=== PATIENT | male | born 1940 | race Caucasian/White ===

== ENCOUNTER 2016-09-14 05:27 | Inpatient (IN) | payer OTHER ==
[2016-09-03 14:44] VITALS: BMI 31.0
--- NOTE | 2016-09-03 15:19 | PAT Medication Instructions ---
Service Date Sep 03, 2016. Current Home Medication List Ascorbic Acid (Vitamin C *), 500 MG PO BID Aspirin (Aspir-81), 81 MG PO BID Calcium Carbonate (Tums), 2 TAB PO PRN Fish Oil ([place]-3), 1 CAP PO QAM Levodopa/Carbidopa (Sinemet 25MG/100MG), 2 TAB PO TID Losartan Potassium (Cozaar), 100 MG PO QAM Multivitamin (Multivitamin), 1 TAB PO QAM Simvastatin (Zocor), 20 MG PO QAM [Amlodipine], 1 TAB PO QAM Medication Instructions For Your Scheduled Surgery - Hold the following medications starting today 09/03/16: Fish Oil ([place]-3), 1 CAP PO QAM - Hold the following medications the morning of surgery: Multivitamin (Multivitamin), 1 TAB PO QAM Losartan Potassium (Cozaar), 100 MG PO QAM Calcium Carbonate (Tums), 2 TAB PO PRN Ascorbic Acid (Vitamin C *), 500 MG PO BID - Take the following medications the morning of surgery with a sip of water: Amlodipine 1 TAB PO QAM Simvastatin (Zocor), 20 MG PO QAM Levodopa/Carbidopa (Sinemet 25MG/100MG), 2 TAB PO TID Aspirin (Aspir-81), 81 MG PO BID (per surgeon instructions) - Take the following medications as scheduled the night before surgery: Levodopa/Carbidopa (Sinemet 25MG/100MG), 2 TAB PO TID Ascorbic Acid (Vitamin C *), 500 MG PO BID Aspirin (Aspir-81), 81 MG PO BID (per surgeon instructions) If you have any questions please call us at [phone] or [phone] ( [place]) or [phone]
--- NOTE | 2016-09-03 16:02 | DIAGNOSTIC IMAGING REPORT ---
CHEST 2 VIEWS ROUTINE CLINICAL HISTORY: Preoperative chest COMPARISON STUDY: 03/12/2014 FINDINGS: The cardiac and mediastinal contours remain stable. There is mild interstitial thickening, unchanged the prior study. This is likely chronic. There is no focal pulmonary consolidation. There is no failure. There are no pleural effusions. Degenerative changes are present within the dorsal spine with bridging anterior calcification.[ IMPRESSION: No active disease in the chest. Electronically signed by: Juice Tang M.D. 09/03/2016 4:01 PM Dictated Date/Time: 09/03/2016 4:00 PM
[2016-09-03 16:36] LABS: BASO % 0.2 %; BASO ABS # 0.02 K/uL (0-0.2); COMPLETE YES; EOS % 1.1 %; HEMATOCRIT 40.6 % (42-52); IG% 0.3 %; LYMPH % 20.6 %; LYMPH ABS # 2.43 K/uL (1.2-3.4); MEAN CELL VOLUME 96.9 fL (80-100); MEAN CORPUSCULAR HEMOGLOBIN 33.9 pg (25-34); MEAN PLATELET VOLUME 10.4 fL (7.4-10.4); MONO % 7.3 %; NEUT % 70.5 %; PLATELET COUNT 267 K/uL (130-400); RED BLOOD COUNT 4.19 M/uL (4.7-6.1); WHITE BLOOD COUNT 11.79 K/uL (4.8-10.8)
[2016-09-03 16:48] LABS: PROTHROMBIN TIME (PATIENT) 10.9 SECONDS (9.0-12.0)
[2016-09-03 17:03] LABS: BUN/CREATININE RATIO 19.1 (10-20); CALCIUM 9.5 mg/dl (8.5-10.1); CREATININE 0.86 mg/dl (0.60-1.40); POTASSIUM 3.7 mmol/L (3.5-5.1)
[2016-09-14] VITALS (11 sets, daily range): BP systolic 114–184; BP diastolic 46–82; PULSE 64–97; TEMP 36.5–36.8; O2SAT 90–94; Ht 190.5 cm; Wt 113.4 kg
[~2016-09-14] VITALS: Ht 190.5 cm; Wt 113.4 kg
[~2016-09-14 05:27] MED LIST: AMLODIPINE PO; ASCA500 PO; ASPI-232 PO; CALC500C3 PO; LOSA1TAB38 PO; MULT-506 PO; OMEG10007 PO; SIMV20TA2 PO; SNM/25100 PO
[2016-09-14] MEDS ORDERED: SODIUM CHLORIDE 0.9% 1000ML 1,000 ML IV SCH (06:00)
[2016-09-14] MEDS ORDERED: LACTATED RINGER'S 1000ML 1,000 ML IV SCH (06:00)
[2016-09-14] MEDS ORDERED: CEFAZOLIN 2000 MG/60 ML D5W IV SCH (06:00)
[2016-09-14] MEDS ORDERED: FENTANYL CITRATE INJ 50 MCG/1 ML 2 ML VIAL ONE (06:13)
[2016-09-14] MEDS ORDERED: ONDANSETRON INJ 2 MG/ML 2 ML VIAL ONE (06:13)
[2016-09-14] MEDS ORDERED: LIDOCAINE HCL 2% 2 ML VIAL (20MG/ML) ONE (06:13)
[2016-09-14] MEDS ORDERED: PROPOFOL IV EMULSION 10 MG/ML 20 ML VIAL IV ONE ×2 (06:13→09:05)
[2016-09-14] MEDS ORDERED: DEXAMETHASONE SOD INJ 4 MG/ML VIAL ONE (06:13)
[2016-09-14] MEDS ORDERED: MIDAZOLAM HCL 1 MG/ML 2ML VIAL ONE (06:13)
[2016-09-14] MEDS ORDERED: ROCURONIUM BROMIDE 10 MG/ML 5 ML VIAL ONE ×2 (06:13→08:11)
--- NOTE | 2016-09-14 06:14 | History and Physical ---
History & Physical CC: Left internal carotid artery stenosis HPI: Mr. Bennett is a 75-year-old gentleman who you have been following for carotid disease over the last few years. He is asymptomatic without any focal symptomatology. His most recent ultrasound was suggestive of a significant left internal carotid artery stenosis. CTA was performed, which showed the left internal carotid artery with approximately 90% stenosis. Again, he denies any symptoms of TIAs or CVAs. He denies any symptoms of claudication in either lower extremity. ALLERGIES: None known. PAST MEDICAL HISTORY: Positive for hyperlipidemia, hypertension, osteoarthritis , and skin cancer. SURGICAL HISTORY: Positive for a tonsillectomy, bilateral knee replacements, hip replacement. FAMILY HISTORY: Positive for heart disease, hypertension and stroke. SOCIAL HISTORY: He does not smoke. He drinks occasionally. REVIEW OF SYSTEMS: Ten systems were reviewed with the positive findings are positive for skin cancer, cough, heartburn and constipation. PHYSICAL EXAMINATION: The patient is awake, oriented x3. He is in no apparent distress, normal body habitus. His blood pressure is 154/68 over the left, 156/ 66 on the right. Head and Neck: Within normal limits. There are some carotid bruits on both sides, slightly worse in the left than the right. Lungs are clear to auscultation. Heart had a regular rate and rhythm. Abdominal exam is benign, no abnormal dilatation of the arteries was appreciated. Vascular exam reveals his radials, his carotids, superficial temporal arteries +2 bilaterally. Femorals and posterior tibialis are +2 bilaterally. Bilateral dorsalis pedis are +1 bilaterally. There is good capillary refill in both feet. Neurologic exam is intact to motor and sensory function. There is no evidence of ischemic changes of either lower extremities. IMPRESSION: 1. Left internal carotid artery stenosis severe, right-side is moderate. 2. Hypertension. 3. Hyperlipidemia. 4. Parkinson's disease. PLAN AND RECOMMENDATIONS: At this point, we recommend a left carotid endarterectomy. We went through the risks, options, benefits of surgery versus no surgery and conservative management. He understood these risks involved and elected to go ahead with surgical endarterectomy.
[2016-09-14] MEDS ORDERED: HEPARIN SOD (PORCINE) 1000 UNIT/ML 10 ML VIAL ONE (06:33)
[2016-09-14] MEDS ORDERED: ATROPINE SULFATE 0.1 MG/ML 5ML SYR IV PRN (07:00)
[2016-09-14] MEDS ORDERED: FENTANYL CITRATE INJ 50 MCG/1 ML 2 ML VIAL IV PRN (07:00)
[2016-09-14] MEDS ORDERED: EpHEDrine SULFATE INJ 50 MG/ML AMP IV PRN (07:00)
[2016-09-14] MEDS ORDERED: ONDANSETRON INJ 2 MG/ML 2 ML VIAL IV PRN ×2 (07:00→09:30)
[2016-09-14] MEDS ORDERED: PHENYLEPHRINE HCL INJ 10 MG/ML VIAL ONE (08:02)
[2016-09-14] MEDS ORDERED: EpHEDrine SULFATE 50MG/5ML SYR ONE (08:02)
[2016-09-14] MEDS ORDERED: GELATIN SPONGE 12-7MM TOP ONE ×2 (08:07→09:29)
[2016-09-14] MEDS ORDERED: SURGICEL ABSORB HEMOSTAT 2IN X 14IN TOP ONE (08:07)
[2016-09-14] MEDS ORDERED: HEPARIN SOD (PORCINE) 1000 UNIT/ML 10 ML VIAL FLUSH ONE (08:35)
[2016-09-14] MEDS ORDERED: CEFAZOLIN SOD 1 GM VIAL IRRIG ONE (08:35)
[2016-09-14] MEDS ORDERED: METOPROLOL TARTRATE 1 MG/ML VIAL ONE (09:05)
[2016-09-14] MEDS ORDERED: GLYCOPYRROLATE INJ 0.2 MG/ML VIAL ONE (09:17)
[2016-09-14] MEDS ORDERED: NEOSTIGMINE METHYLSULFATE 5 MG/5 ML SYR ONE (09:17)
[2016-09-14] MEDS ORDERED: PHENYLEPHRINE HCL INJ 20 MG in DEXTROSE 5% 500ML 500 ML IV PRN (09:20)
[2016-09-14] MEDS ORDERED: SODIUM NITROPRUSSIDE SOLN INJ 50 MG in DEXTROSE 5% 500ML 500 ML IV PRN (09:20)
--- NOTE | 2016-09-14 09:26 | [facility] Post Operative Brief Note ---
Immediate Operative Summary Operative Date Sep 14, 2016. Pre-Operative Diagnosis Left internal carotid artery stenosis, severe Post-Operative Diagnosis Same as pre-operative Procedure(s) Performed Left carotid endartectomy with patch angioplasty Surgeon Dr.Eugene Laury MD Computer Tester Surgeon(s) Karen Rouse PA-C Estimated Blood Loss 80ml Findings Severe stenosis of left internal carotid artery origin Specimens Plaque from left carotid Anesthesia Gen Complication(s) None Disposition Recovery Room / PACU
[2016-09-14] MEDS ORDERED: BUPIVACAINE/EPINEPHRINE 0.5% MPF 1:200,000 30 ML VIAL INJ ONE (09:29)
[2016-09-14] MEDS ORDERED: THROMBIN FOR SOLN 20000 UNIT KIT TOP ONE (09:29)
[2016-09-14] MEDS ORDERED: CALCIUM CARBONATE 500 MG CHEWABLE PO PRN (09:30)
[2016-09-14] MEDS ORDERED: ACETAMINOPHEN 325 MG TAB PO PRN (09:30)
[2016-09-14] MEDS ORDERED: MoRPHine SULFATE 4 MG/ML 1 ML CARP\\VIAL IV PRN (09:30)
[2016-09-14] MEDS ORDERED: OXYCODONE/ACETAMINOPHEN 5-325 TAB PO PRN (09:30)
[2016-09-14] MEDS ORDERED: LABETALOL HCL IV 5 MG/ML 20ML ONE (09:55)
--- NOTE | 2016-09-14 10:32 | Anesthesiology Progress Note ---
Anesthesia Post Op Note Date & Time Sep 14, 2016 at 10:32 Vital Signs Pain Intensity: 0 Vital Signs Past 12 Hours Date Time Temp Pulse Resp B/P Pulse Ox O2 Delivery O2 Flow Rate FiO2 09/14/16 10:20 82 20 157/65 92 Nasal Cannula 2 155/50 09/14/16 10:10 83 20 156/71 93 Mask 10 150/55 09/14/16 10:00 86 23 158/71 93 Mask 10 151/56 09/14/16 09:50 89 22 168/76 93 Mask 10 163/59 09/14/16 09:49 36.3 92 18 162/66 96 Mask 10 09/14/16 06:43 36.6 97 18 177/82 92 Room Air 153/71 Notes Mental Status: alert / awake / arousable, participated in evaluation Pt Amnestic to Procedure: Yes Nausea / Vomiting: adequately controlled Pain: adequately controlled Airway Patency, RR, SpO2: stable & adequate BP & HR: stable & adequate Hydration State: stable & adequate Anesthetic Complications: no major complications apparent
--- NOTE | 2016-09-14 10:34 | OPERATIVE REPORT ---
DATE OF OPERATION: 09/14/2016 PREOPERATIVE DIAGNOSIS: Left internal carotid artery stenosis, severe. POSTOPERATIVE DIAGNOSIS: Same. PROCEDURE: Left carotid endarterectomy with patch angioplasty. SURGEON: Dr. Schaefefr. BLACKSMITH HELPER: Karen Rouse PA-C. ANESTHETIC: General. PROCEDURE INDICATIONS: The patient is a 76-year-old gentleman who was found to have a greater than 90% narrowing of his left internal carotid artery on CT angiogram. Carotid endarterectomy was recommended. He understood the risks, options and benefits and agreed to go ahead with this procedure. The patient was taken to the operating room and placed in supine position. After the left side of the neck was prepped and draped in a sterile manner, a longitudinal incision was then made. This was carried down through the platysmal layer. It was carried down medial to the sternocleidomastoid muscle. The common carotid artery was identified. This was then exposed proximally to the omohyoid muscle. Dissection was carried upward up to the internal and external carotid artery. There dissection of the internal was carried up above the hypoglossal. The hypoglossal was allowed to retract upward on its own. The internal carotid artery origin appeared to be fairly hard on palpation. The patient was heparinized at that time with 8000 units of heparin. After adequate heparinization was accomplished, the internal, external and common carotid arteries were clamped. Longitudinal arteriotomy was started in the common carotid artery and extended upward along the internal to beyond the area of narrowing. A Doppler shunt was then placed in the internal carotid and held in place with Francesco clamps. Good backbleeding was seen. The proximal end was then placed in the common carotid artery and held in place with a Francesco clamp. The flow surface itself had a large amount of calcified heaped up plaque at the origin causing a greater than 90% narrowing on exam. Endarterectomy was started in the appropriate plane on the common carotid artery. Proximal breakoff point was cut using Vergara scissors. A nice flush breakoff point was seen. Endarterectomy was carried up along the common carotid artery. The external and superior thyroid were everted and endarterectomized. This was done without difficulty. The endarterectomy was continued on the internal carotid artery until a nice feathering breakoff point was accomplished. All loose debris and the remaining plaque were removed under loupe magnification. There was slight irregularity on the medial side of the breakoff point in the distal end. This was tacked down with 3 interrupted 7-0 Prolene sutures. After this was done, a nice flow surface was seen. No loose debris or flaps were noted. The patch was then brought to the operative field and sewn in place with a CV6 [place] suture in the usual vascular fashion. Prior to completing the closure, backbleeding and forward bleeding were allowed to occur after the shunt was removed. The arteries were reclamped and the flow surface was irrigated with heparinized saline. The final few sutures were placed and securely tied. Clamps were removed off the internal and external carotid artery. The internal was reclamped, and the common carotid artery was unclamped. After 2 or 3 beats the internal was released. Good flow was seen through the internal carotid artery. Good distal pulse was felt. The arteriotomy site was inspected. There were 2 areas which had some slight oozing which were tacked with interrupted 7-0 single stitch. After this was completed, adequate hemostasis was noted of the endarterectomy and the wound. The wound was then irrigated with antibiotic solution. The wound was then closed in the usual fashion using running 3-0 Vicryl for subcutaneous layer and running 4-0 subcuticular suture for the skin edges, and Dermabond for a dressing. The wound itself was injected with local at the end of the procedure. The patient left the operating room in good condition and tolerated the procedure well. Karen Rouse assisted due to lack of resident availability. I attest to the content of the Intraoperative Record and any orders documented therein. Any exceptions are noted below. TAL
--- NOTE | 2016-09-14 11:35 | Progress Note ---
Progress Note I assisted Dr Schaeffer with Glen Bennett's Left carotid endartectomy with patch angioplasty on 09/14/16, d/t lack of resident availability.
--- NOTE | 2016-09-14 11:56 | Critical Care Consultation ---
Critical Care Consultation Date of Consultation: Sep 14, 2016. Attending Physician: Dago Schaeffer M.D. Reason for Consultation: s/p left carotid endarterectomy History of Present Illness This is a pleasant 76yo m that is presenting to us after completion of a left sided endarterectomy. The patient was found in the past, by his PCP, that he suffered from a left sided bruit incidentally. Since this finding the patient has been getting regular, yearly carotid USG. This past July the patient had one of his repeat USG completed and he was found to have progression of his carotid stenosis and he was referred by his PCP to be seen by Dr. Schaeffer. Based on the CTA results, which revealed very significant stenosis on the left side and moderate on the right it was decided that he would undergo a left sided endarterectomy. He currently denies any chest pain, abdominal pain, numbness/ tingling or generalized weakness The patient has never had any neurologic symptoms, h/o stroke or TIA while suffering from this stenosis. He does not have any significant CVS history except for HTN. He denies suffering from intermittent claudication of the LE. CTA results: -60-70 % in right internal bulb Right internal distal patent 90% @ right external carotid origin 90% @ left external origin 90% origin of left internal Distal internal patent Past Medical/Surgical History Hyperlipidemia Hypertension Osteoarthritis Bilat knee arthroplasty right hip arthroplasty Parkinson's Family History FH: CAD (coronary artery disease) Hypertension Stroke Social History Smoking Status: Former Smoker (quit 41 years prior) Smokeless Tobacco Use: No Alcohol Use: occasionally Drug Use: none Marital Status: Occupation Status: retired Allergies Coded Allergies: No Known Allergies (Verified , 09/03/16) Home Medications Scheduled Ascorbic Acid (Vitamin C *), 500 MG PO BID Aspirin (Aspir-81), 81 MG PO BID Calcium Carbonate (Tums), 2 TAB PO PRN Fish Oil ([place]-3), 1 CAP PO QAM Levodopa/Carbidopa (Sinemet 25MG/100MG), 2 TAB PO TID Losartan Potassium (Cozaar), 100 MG PO QAM Multivitamin (Multivitamin), 1 TAB PO QAM Simvastatin (Zocor), 20 MG PO QAM [Amlodipine], 1 TAB PO QAM Current Inpatient Medications Current Inpatient Medications Medications (Trade) Dose Ordered Sig/Yvette Route Start Time Stop Time Status Last Admin Dose Admin Cefazolin Sodium 60 ml @ 100 mls/hr PREOP IV 09/14/16 06:00 09/14/16 18:00 09/14/16 07:21 100 MLS/HR Sodium Chloride (Nss 1000ml) 1,000 ml @ 100 mls/hr Q10H IV 09/14/16 06:00 09/14/16 16:00 Fentanyl Citrate (Fentanyl Inj) 25 mcg Q5M PRN IV 09/14/16 07:00 09/14/16 12:00 Ondansetron HCl (Zofran Inj) 4 mg ONE PRN IV 09/14/16 07:00 09/14/16 12:00 Ephedrine Sulfate (EpHEDrine SULFATE INJ) 5 mg Q5M PRN IV 09/14/16 07:00 09/14/16 12:00 Atropine Sulfate (Atropine Sulfate 0.1MG/Ml Inj) 0.5 mg Q1M PRN IV 09/14/16 07:00 09/14/16 12:00 Acetaminophen (Tylenol Tab) 650 mg Q4H PRN PO 09/14/16 09:30 10/14/16 09:29 Oxycodone/ Acetaminophen (Percocet 5-325MG Tab) FOR MODERATE PAIN ... Q4H PRN PO 09/14/16 09:30 09/28/16 09:29 Morphine Sulfate (MoRPHine SULFATE INJ) 4 mg Q4H PRN IV 09/14/16 09:30 09/28/16 09:29 Ondansetron HCl 4 mg 4 mg Q6H PRN IV 09/14/16 09:30 10/14/16 09:29 Cefazolin Sodium/ Dextrose (Ancef Iv/D5 50ml) 55 ml @ 100 mls/hr Q8H IV 09/14/16 09:30 09/14/16 18:02 UNV Metoprolol Tartrate 5 mg 5 mg Q10M PRN IV 09/14/16 09:30 10/14/16 09:29 UNV Sodium Nitroprusside 50 mg/Dextrose 502 ml @ 0 mls/hr Q0M PRN IV 09/14/16 09:20 10/14/16 09:19 UNV Dextrose/Sodium Chloride 1,000 ml @ 125 mls/hr Q8H IV 09/14/16 09:20 10/14/16 09:19 UNV Phenylephrine HCl/ Dextrose (Dk-Synephrine Inj/D5W 500ml) 502 ml @ 0 mls/hr Q0M PRN IV 09/14/16 09:20 10/14/16 09:19 UNV Enoxaparin Sodium (Lovenox Inj) 30 mg Q12H SQ 09/14/16 20:00 10/14/16 19:59 UNV Ascorbic Acid (Vitamin C Tab) 500 mg BID PO 09/14/16 21:00 10/14/16 20:59 UNV Aspirin (Ecotrin Tab) 81 mg BID PO 09/14/16 21:00 10/14/16 20:59 UNV Calcium Carbonate (Tums Chew Tab) 1,000 mg PRN PO 09/14/16 09:30 10/14/16 09:29 UNV Fish Oil ([place]-3 (Purified Fish Oil) Cap) 1 gm QAM PO 09/15/16 09:00 10/15/16 08:59 UNV Carbidopa/Levodopa (Sinemet 25/ 100MG Tab) 2 tab TID PO 09/14/16 14:00 10/14/16 13:59 UNV Losartan Potassium (coZAAR TAB) 100 mg QAM PO 09/15/16 09:00 10/15/16 08:59 UNV Multivitamins (Multivitamin Tab) 1 tab QAM PO 09/15/16 09:00 10/15/16 08:59 UNV Simvastatin (Zocor Tab) 20 mg QAM PO 09/15/16 09:00 10/15/16 08:59 UNV Non-Formulary Medication ([Amlodipine] ) 1 tab QAM PO 09/15/16 09:00 10/15/16 08:59 UNV Review of Systems Patient states that he is currently comfortable, no pain Constitutional: No fever Eyes: No worsening of vision ENT: No hearing loss Respiratory: No cough, No dyspnea at rest, No dyspnea on exertion, No shortness of breath Cardiovascular: No chest pain Abdomen: No nausea, No pain, No vomiting Musculoskeletal: No joint pain, No muscle pain Neurologic: No numbness/tingling, No paralysis, No weakness Endocrine: No fatigue Integumentary: No rash Physical Exam Date Time Temp Pulse Resp B/P Pulse Ox O2 Delivery O2 Flow Rate FiO2 09/14/16 11:00 36.8 74 20 138/65 94 Nasal Cannula 4.0 158/55 09/14/16 10:40 73 19 150/63 93 Nasal Cannula 4 146/48 09/14/16 10:30 37.2 79 21 146/65 94 Nasal Cannula 4 147/50 09/14/16 10:20 82 20 157/65 92 Nasal Cannula 2 155/50 09/14/16 10:10 83 20 156/71 93 Mask 10 150/55 09/14/16 10:00 86 23 158/71 93 Mask 10 151/56 09/14/16 09:50 89 22 168/76 93 Mask 10 163/59 09/14/16 09:49 36.3 92 18 162/66 96 Mask 10 09/14/16 06:43 36.6 97 18 177/82 92 Room Air 153/71 General Appearance: WD/WN, no apparent distress Head: normocephalic, atraumatic Eyes: normal inspection ENT: normal ENT inspection, + pertinent finding (, MCGRATH) Neck: supple, trachea midline, + pertinent finding (surgical site noted on left neck) Respiratory/Chest: lungs clear, normal breath sounds, no respiratory distress, no accessory muscle use Cardiovascular: regular rate, rhythm, no murmur, normal peripheral pulses Abdomen/GI: normal bowel sounds, non tender, soft Extremities/Musculoskelatal: normal inspection, no calf tenderness, no pedal edema Neurologic/Psych: event set up specialist II-XII nml as tested, no motor/sensory deficits, alert, normal mood/affect, oriented x 3 Skin: normal color, warm/dry, no rash Lymphatic: no adenopathy Laboratory Results Last 24 Hours Test 09/14/16 06:28 09/14/16 09:51 Bedside Glucose 126 mg/dl 130 mg/dl Diagnostic Results CHEST 2 VIEWS ROUTINE CLINICAL HISTORY: Preoperative chest COMPARISON STUDY: 03/12/2014 FINDINGS: The cardiac and mediastinal contours remain stable. There is mild interstitial thickening, unchanged the prior study. This is likely chronic. There is no focal pulmonary consolidation. There is no failure. There are no pleural effusions. Degenerative changes are present within the dorsal spine with bridging anterior calcification.[ IMPRESSION: No active disease in the chest. Assessment & Plan 1. s/p left carotid endarterectomy POD0 2. Hypertension 3. Hyperlipidemia 4. Parkinson's NVS -Patient is currently A+Ox3 - monitor for changes in LOC - neuro checks - continue sinemet CVS - Patient has an arterial line in right UE - Continue home bp medications - Lopressor 5 mg IV for > 180 sys - Continue home dose statin - continue ASA 81 mg - Phenylephrine/ Nitroprusside available prn RVS - incentive spirometry - monitor for signs of respiratory distress secondary to hematoma O2 as per nursing protocol HEME - recheck CBC in am GI - AHA diet - protonix bid RENAL - BMP in am - continue to monitor I&O ID - Rocephin ENDO - HBA1C ordered - stable bsg, no need for ISS DVT Prophylaxis - lovenox FULL CODE Resident Physician Supervision Note: Dr. Scott was resident physician during care of patient. I separately evaluated patient and did history and exam. I discussed the case with the resident and generally agree with the findings and plan. Patient has remained stable post-operatively Documented By: Maurice Jay, DO Additional Copies To Pranav Garcia M.D.
[2016-09-14] MEDS: D5W AND 1/2NSS 1,000 ML IV SCH ×2 (12:02→20:06)
[2016-09-14 12:45] LABS: ESTIMATED AVERAGE GLUCOSE 123 mg/dl; HA1C FLAG Normal (Normal)
[2016-09-14] MEDS: CARBIDOPA/LEVODOPA 25/100MG TAB PO SCH ×2 (15:35→20:05)
[2016-09-14] MEDS: CEFAZOLIN IV 1,000 MG in DEXTROSE 5% 50ML 50 ML IV SCH ×2 (15:36→23:49)
[2016-09-14] MEDS ORDERED: NURSING VERBAL MED ORDER ONE (16:00)
[2016-09-14] MEDS: METOPROLOL TARTRATE 1 MG/ML VIAL IV PRN (20:03)
[2016-09-14] MEDS: ENOXAPARIN 30 MG/0.3 ML SYR SQ SCH (20:05)
[2016-09-14] MEDS: ASPIRIN 81 MG ECTAB PO SCH (20:05)
[2016-09-14] MEDS: ASCORBIC ACID 500 MG TAB PO SCH (20:06)
[2016-09-15] VITALS (8 sets, daily range): BP systolic 143–172; BP diastolic 47–92; PULSE 61–85; TEMP 36.5; O2SAT 93–94
[2016-09-15] MEDS: METOPROLOL TARTRATE 1 MG/ML VIAL IV PRN ×2 (05:35→06:50)
[2016-09-15] MEDS: D5W AND 1/2NSS 1,000 ML IV SCH (05:35)
[2016-09-15 06:19] LABS: HEMATOCRIT 38.5 % (42-52); MEAN CORPUSCULAR HEMOGLOBIN 33.6 pg (25-34); MEAN CORPUSCULAR HGB CONC 34.3 g/dl (32-36); MEAN PLATELET VOLUME 10.2 fL (7.4-10.4); PLATELET COUNT 271 K/uL (130-400); RED BLOOD COUNT 3.93 M/uL (4.7-6.1); WHITE BLOOD COUNT 10.64 K/uL (4.8-10.8)
[2016-09-15 06:50] LABS: BUN/CREATININE RATIO 11.3 (10-20); CREATININE 0.8 mg/dl (0.60-1.40); POTASSIUM 3.8 mmol/L (3.5-5.1)
--- NOTE | 2016-09-15 07:51 | Critical Care Progress Note ---
Critical Care Progress Note Date of Service Sep 15, 2016. Attending Dr. Jay Subjective Patient did well overnight There was a few elevations in his bp which required Lopressor but responded well to the medication States he is comfortable, denies chest pain or SOB - bowels moving ROS negative aside from what is noted above Objective General: not in acute distress, resting in bed comfortably Skin: no rashes noted, no suspicious lesions, no areas of inflammations/ lacerations/ erythema noted except for incision site on left neck; clean dry and intact CVS: S1/ S2 noted, RRR, no rubs/ murmurs noted, no cyanosis RVS: Clear throughout bilaterally, not in acute respiratory distress, no wheezing/ rales/ crackles noted ENT: no erythema/ injection/ ulcerations noted in the pharynx, no lymphadenopathy Neck: inspection WNL, full ROM of neck ABD: BSx4, no pain/ tenderness on palpation, no organomegaly MSK: inspection of all limbs WNL, motor and sensation intact in all limbs, no swelling/ pain on palpation of joints NVS: CN ii-xii WNL,EOMI, sensation intact in all extremities Lymph: No lymphadenopathy palpable Assessment & Plan 1. s/p left carotid endarterectomy POD0 2. Hypertension 3. Hyperlipidemia 4. Parkinson's NVS -Patient is currently A+Ox3 - monitor for changes in LOC - neuro checks - continue sinemet CVS - Patient has an arterial line in right UE - can be removed today - Continue home bp medications - Lopressor 5 mg IV for > 180 sys - Continue home dose statin - continue ASA 81 mg - Phenylephrine/ Nitroprusside available prn RVS - incentive spirometry - monitor for signs of respiratory distress secondary to hematoma O2 as per nursing protocol HEME - CBC stable, cont to trend while in house GI - AHA diet - protonix bid RENAL - BMP in am - continue to monitor I&O ID - Rocephin ENDO - HBA1C 5.9% - stable bsg, no need for ISS DVT Prophylaxis - lovenox FULL CODE Resident Physician Supervision Note: Dr. Scott was resident physician during care of patient. I separately evaluated patient and did history and exam. I discussed the case with the resident and generally agree with the findings and plan. Routine post-operative care. Documented By: Maurice Jay DO Data Medications: Current Inpatient Medications Medications (Trade) Dose Ordered Sig/Yvette Route Start Time Stop Time Status Last Admin Dose Admin Acetaminophen (Tylenol Tab) 650 mg Q4H PRN PO 09/14/16 09:30 10/14/16 09:29 09/14/16 20:04 650 MG Oxycodone/ Acetaminophen (Percocet 5-325MG Tab) FOR MODERATE PAIN ... Q4H PRN PO 09/14/16 09:30 09/28/16 09:29 Morphine Sulfate (MoRPHine SULFATE INJ) 4 mg Q4H PRN IV 09/14/16 09:30 09/28/16 09:29 Ondansetron HCl (Zofran Inj) 4 mg Q6H PRN IV 09/14/16 09:30 10/14/16 09:29 Metoprolol Tartrate 5 mg 5 mg Q10M PRN IV 09/14/16 09:30 10/14/16 09:29 09/15/16 06:50 5 MG Sodium Nitroprusside 50 mg/Dextrose 502 ml @ 0 mls/hr Q0M PRN IV 09/14/16 09:20 10/14/16 09:19 Dextrose/Sodium Chloride 1,000 ml @ 125 mls/hr Q8H IV 09/14/16 11:45 10/14/16 11:44 09/15/16 05:35 125 MLS/HR Phenylephrine HCl/ Dextrose (Dk-Synephrine Inj/D5W 500ml) 502 ml @ 0 mls/hr Q0M PRN IV 09/14/16 09:20 10/14/16 09:19 Enoxaparin Sodium (Lovenox Inj) 30 mg Q12H SQ 09/14/16 20:00 10/14/16 19:59 09/14/16 20:05 30 MG Ascorbic Acid (Vitamin C Tab) 500 mg BID PO 09/14/16 21:00 10/14/16 20:59 09/14/16 20:06 500 MG Aspirin (Ecotrin Tab) 81 mg BID PO 09/14/16 21:00 10/14/16 20:59 09/14/16 20:05 81 MG Calcium Carbonate (Tums Chew Tab) 1,000 mg PRN PRN PO 09/14/16 09:30 10/14/16 09:29 Fish Oil ([place]-3 (Purified Fish Oil) Cap) 1 gm QAM PO 09/15/16 09:00 10/15/16 08:59 Carbidopa/Levodopa (Sinemet 25/ 100MG Tab) 2 tab TID PO 09/14/16 14:00 10/14/16 13:59 09/14/16 20:05 2 TAB Losartan Potassium (coZAAR TAB) 100 mg QAM PO 09/15/16 09:00 10/15/16 08:59 Multivitamins (Multivitamin Tab) 1 tab QAM PO 09/15/16 09:00 10/15/16 08:59 Simvastatin (Zocor Tab) 20 mg QAM PO 09/15/16 09:00 10/15/16 08:59 Pantoprazole Sodium (Protonix Tab) 40 mg QAM PO 09/15/16 09:00 10/15/16 08:59 Amlodipine Besylate (Norvasc Tab) 10 mg QAM PO 09/15/16 09:00 10/15/16 08:59 I & O: 24-Hour Column 09/15/16 08:00 Intake Total 4305 ml Output Total 2780 ml Balance 1525 ml Vital Signs: Date Time Temp Pulse Resp B/P Pulse Ox O2 Delivery O2 Flow Rate FiO2 09/15/16 06:50 68 172/61 09/15/16 06:00 61 20 149/51 94 Nasal Cannula 2.0 09/15/16 05:35 73 183/86 09/15/16 04:00 85 24 160/55 93 Nasal Cannula 2.0 09/15/16 04:00 Nasal Cannula 2.0 09/15/16 02:00 67 21 145/48 94 Room Air 09/15/16 00:01 36.5 70 24 143/47 93 Nasal Cannula 2.0 09/14/16 23:59 93 Nasal Cannula 2.0 09/14/16 22:00 67 22 148/46 94 Nasal Cannula 2.0 09/14/16 21:00 80 22 167/61 93 09/14/16 20:03 80 181/61 09/14/16 20:00 36.5 78 24 184/62 90 Room Air 09/14/16 20:00 90 Room Air 09/14/16 18:00 70 22 143/68 93 Room Air 169/46 09/14/16 16:00 93 Room Air 09/14/16 16:00 36.8 66 14 121/61 91 Room Air 153/49 09/14/16 14:00 64 21 138/48 92 09/14/16 13:00 66 16 124/58 92 Nasal Cannula 2.0 143/51 09/14/16 12:00 74 14 114/58 94 Nasal Cannula 4.0 133/51 09/14/16 12:00 94 Nasal Cannula 2.0 09/14/16 11:00 36.8 74 20 138/65 94 Nasal Cannula 4.0 158/55 09/14/16 10:40 73 19 150/63 93 Nasal Cannula 4 146/48 09/14/16 10:30 37.2 79 21 146/65 94 Nasal Cannula 4 147/50 09/14/16 10:20 82 20 157/65 92 Nasal Cannula 2 155/50 09/14/16 10:10 83 20 156/71 93 Mask 10 150/55 09/14/16 10:00 86 23 158/71 93 Mask 10 151/56 09/14/16 09:50 89 22 168/76 93 Mask 10 163/59 09/14/16 09:49 36.3 92 18 162/66 96 Mask 10 Laboratory Results: Last 24 Hours Test 09/14/16 09:51 09/14/16 12:21 09/15/16 05:24 09/15/16 05:29 Bedside Glucose 130 mg/dl Estimated Average Glucose 123 mg/dl Hemoglobin A1c 5.9 % Sodium Level 140 mmol/L Potassium Level 3.8 mmol/L Chloride Level 104 mmol/L Carbon Dioxide Level 25 mmol/L Anion Gap 11.0 mmol/L Blood Urea Nitrogen 9 mg/dl Creatinine 0.80 mg/dl Est Creatinine Clear Calc Drug Dose 103.4 ml/min Estimated GFR () 99.2 Estimated GFR (Non- 85.6 BUN/Creatinine Ratio 11.3 Random Glucose 124 mg/dl Calcium Level 9.0 mg/dl White Blood Count 10.64 K/uL Red Blood Count 3.93 M/uL Hemoglobin 13.2 g/dL Hematocrit 38.5 % Mean Corpuscular Volume 98.0 fL Mean Corpuscular Hemoglobin 33.6 pg Mean Corpuscular Hemoglobin Concent 34.3 g/dl RDW Standard Deviation 45.1 fL RDW Coefficient of Variation 12.6 % Platelet Count 271 K/uL Mean Platelet Volume 10.2 fL
--- NOTE | 2016-09-15 07:57 | Anesthesiology Progress Note ---
Anesthesia Post Op Note Date & Time Sep 15, 2016 at 07:57 Vital Signs Pain Intensity: 0.0 Vital Signs Past 12 Hours Date Time Temp Pulse Resp B/P Pulse Ox O2 Delivery O2 Flow Rate FiO2 09/15/16 06:50 68 172/61 09/15/16 06:00 61 20 149/51 94 Nasal Cannula 2.0 09/15/16 05:35 73 183/86 09/15/16 04:00 85 24 160/55 93 Nasal Cannula 2.0 09/15/16 04:00 Nasal Cannula 2.0 09/15/16 02:00 67 21 145/48 94 Room Air 09/15/16 00:01 36.5 70 24 143/47 93 Nasal Cannula 2.0 09/14/16 23:59 93 Nasal Cannula 2.0 09/14/16 22:00 67 22 148/46 94 Nasal Cannula 2.0 09/14/16 21:00 80 22 167/61 93 09/14/16 20:03 80 181/61 09/14/16 20:00 36.5 78 24 184/62 90 Room Air 09/14/16 20:00 90 Room Air Notes Mental Status: alert / awake / arousable, participated in evaluation Pt Amnestic to Procedure: Yes Nausea / Vomiting: adequately controlled Pain: adequately controlled Airway Patency, RR, SpO2: stable & adequate BP & HR: stable & adequate Hydration State: stable & adequate Anesthetic Complications: no major complications apparent
[2016-09-15] MEDS: ENOXAPARIN 30 MG/0.3 ML SYR SQ SCH (08:15)
[2016-09-15] MEDS: CARBIDOPA/LEVODOPA 25/100MG TAB PO SCH (08:16)
[2016-09-15] MEDS: ASCORBIC ACID 500 MG TAB PO SCH (08:16)
[2016-09-15] MEDS: ASPIRIN 81 MG ECTAB PO SCH (08:16)
[2016-09-15] MEDS ORDERED: OMEGA-3 (PURIFIED FISH OIL) 1 GM CAP PO SCH (09:00)
[2016-09-15] MEDS ORDERED: SIMVASTATIN 20 MG TAB PO SCH (09:00)
[2016-09-15] MEDS ORDERED: MULTIVITAMIN TAB PO SCH (09:00)
[2016-09-15] MEDS ORDERED: LOSARTAN POTASSIUM 50 MG TAB PO SCH (09:00)
[2016-09-15] MEDS ORDERED: PANTOprazole SOD 40 MG TAB PO SCH (09:00)
[2016-09-15] MEDS ORDERED: AMLODIPINE BESYLATE 5 MG TAB PO SCH (09:00)
--- NOTE | 2016-09-15 12:44 | Progress Note ---
Progress Note Date of Service: Sep 15, 2016. Subjective No complaints Objective Vital Signs Vital Signs Past 12 Hours Date Time Temp Pulse Resp B/P Pulse Ox O2 Delivery O2 Flow Rate FiO2 09/15/16 10:00 36.5 80 24 145/50 93 Room Air 09/15/16 08:00 36.5 68 22 172/92 93 Room Air 169/48 09/15/16 08:00 Nasal Cannula 09/15/16 08:00 93 Room Air 09/15/16 06:50 68 172/61 09/15/16 06:00 61 20 149/51 94 Nasal Cannula 2.0 09/15/16 05:35 73 183/86 09/15/16 04:00 85 24 160/55 93 Nasal Cannula 2.0 09/15/16 04:00 Nasal Cannula 2.0 09/15/16 02:00 67 21 145/48 94 Room Air Exam Afebrile, VSS Neck incision dry and clean No neuro deficits, tongue midline Intake & Output 8-Hour Column 09/14/16 09/15/16 09/15/16 16:00 00:00 08:00 Intake Total 2430 ml 592 ml 1283 ml Output Total 80 ml 1350 ml 1350 ml Balance 2350 ml -758 ml -67 ml 24-Hour Column 09/15/16 08:00 Intake Total 4305 ml Output Total 2780 ml Balance 1525 ml Laboratory and Microbiology Results Past 24 Hours Test 09/15/16 05:24 09/15/16 05:29 Range/Units Sodium Level 140 136-145 mmol/L Potassium Level 3.8 3.5-5.1 mmol/L Chloride Level 104 98-107 mmol/L Carbon Dioxide Level 25 21-32 mmol/L Anion Gap 11.0 3-11 mmol/L Blood Urea Nitrogen 9 7-18 mg/dl Creatinine 0.80 0.60-1.40 mg/dl Est Creatinine Clear Calc Drug Dose 103.4 ml/min Estimated GFR () 99.2 Estimated GFR (Non- 85.6 BUN/Creatinine Ratio 11.3 10-20 Random Glucose 124 70-99 mg/dl Calcium Level 9.0 8.5-10.1 mg/dl White Blood Count 10.64 4.8-10.8 K/uL Red Blood Count 3.93 4.7-6.1 M/uL Hemoglobin 13.2 14.0-18.0 g/dL Hematocrit 38.5 42-52 % Mean Corpuscular Volume 98.0 80-100 fL Mean Corpuscular Hemoglobin 33.6 25-34 pg Mean Corpuscular Hemoglobin Concent 34.3 32-36 g/dl RDW Standard Deviation 45.1 36.4-46.3 fL RDW Coefficient of Variation 12.6 11.5-14.5 % Platelet Count 271 130-400 K/uL Mean Platelet Volume 10.2 7.4-10.4 fL Imp: Post left CEA Plan: Doing well D/C today
--- NOTE | 2016-09-15 12:47 | Discharge Instructions ---
Discharge Instructions Visit Reason for Visit: Left Internal Carotid Artery Disease Discharge Discharge Diagnosis / Problem: Severe stenosis of left internal carotid artery Discharge Goals Goal(s): Therapeutic intervention Activity Recommendations Activity Limitations: per Instructions/Follow-up section Anesthesia . Post Anesthesia Instructions: If you have had General Anesthesia or IV Sedation: * Do not drive today. * Resume driving when surgeon permits. * Do not make important decisions or sign legal documents today. * Call surgeon for: 1. Temperature elevations greater than 101 degrees F. 2. Uncontrollable pain. 3. Excessive bleeding. 4. Persistent nausea and vomiting. 5. Medication intolerance (nausea, vomiting or rash). * For nausea and vomiting use only clear liquids such as: tea, soda, bouillon until nausea subsides, then gradually increase diet as tolerated. * If you have any concerns or questions, call your surgeon's office. If physician is unavailable and it is an emergency, call 911 or go to the nearest emergency room. . Instructions / Follow-Up Instructions / Follow-Up Call [phone] to schedule a follow up appointment if one not already scheduled. SPECIAL CARE INSTRUCTIONS: Medications: * Continue to take Aspirin as directed. Incision Care: * You may shower, but do not rub incision. You may let the warm soapy water run over it. Be sure to dry the incision well after bathing. * Do not shave directly over the incision until it is healed. * DO NOT IMMERSE THE INCISION IN A TUB/POOL/etc. UNTIL HEALED. Restrictions: * Do not drive for at least one week or if you are still taking any narcotic pain medication. * Do not lift anything heavier than a gallon of milk for one week after going home. Possible Complications: * Numbness - It is normal to have some numbness around the incision. Numbness can extend beyond the incision to areas of the neck, ear and face. The numbness is due to bruising of nerves during the surgery and will gradually improve over a period of months. * Hoarseness/Difficulty Speaking and Swallowing - The bruising of nerves in the neck can also cause a hoarse voice, difficulty speaking or swallowing. This may improve over time, HOWEVER, if it continues for more than a few days please contact our office ([phone]). * Excessive Swelling - There will be some swelling immediately after surgery which usually resolves within one week. If you notice that the swelling is getting worse, notify your surgeon ([phone]). * Drainage/Bleeding - If there is any drainage or bleeding, it should be a very small amount (less than a teaspoon per day). If you have excessive bleeding or drainage from the incision, call your surgeon ([phone]) right away. ACTIVATION OF EMERGENCY MEDICAL SYSTEM: Call 911, immediately, if you experience any of the following: Warning Signs and Symptoms of Stroke: * Sudden numbness or weakness of the face, arm or leg, especially on one side of the body * Sudden confusion, trouble speaking or understanding * Sudden trouble seeing in one or both eyes * Sudden trouble walking, dizziness, loss of balance or coordination * Sudden severe headache with no cause Do not delay calling 911 if you experience any warning signs or symptoms of a stroke. Delay in seeking medical attention may affect what treatments can be given to you. Risk Factors for Stroke: You can reduce your chances of stroke by working with your medical provider to adopt a healthy lifestyle. Some specific ways to lower your chance of stroke are: * If you are a smoker, now is the time to stop smoking cigarettes * If you are diabetic, improve the control of your blood sugars * Avoid excessive amounts of alcohol * Control high blood pressure * Lose weight if you are overweight * Be sure to lead an active lifestyle * Eat a healthy diet low in salt, cholesterol and fat You should know about other risk factors for stroke that you are unable to control. These include: * Age 55 years or older * Male gender * Certain racial groups: , or / * Family History of Stroke, Mini stroke or Heart Attack * Sickle Cell Disease You will be receiving a call from the Vascular Surgery Nurse after you are discharged. FOLLOW UP VISIT: It is important for you to keep your follow up appointments with your medical provider. Keep any scheduled doctor appointments. Diet Recommendations Recommended Home Diet: resume previous diet Procedures Procedures Performed: Left carotid endartectomy with patch angioplasty Pending Studies Studies pending at discharge: no Medical Emergencies . Who to Call and When: Medical Emergencies: If at any time you feel your situation is an emergency, please call 911 immediately. . Non-Emergent Contact Non-Emergency issues call your: Surgeon . . "Provider Documentation" section prepared by Dago Schaeffer.
--- NOTE | 2016-09-17 14:08 | DISCHARGE SUMMARY ---
ADMISSION DIAGNOSIS: Severe left internal carotid artery stenosis. DISCHARGE DIAGNOSES: 1. Status post left carotid endarterectomy with patch. 2. Severe left internal carotid artery stenosis. DISCHARGE CONDITION: Stable. CONSULTATION IN THE HOSPITAL: Included critical care. PROCEDURES IN THE HOSPITAL: Left carotid endarterectomy with patch performed on 09/14/2016 without significant complications and EBL of 80 mL. HISTORY OF PRESENT ILLNESS: Mr. Bennett is a 76-year-old male who was originally being followed for asymptomatic carotid disease on an every 6 month basis. An ultrasound was performed, which indicated that his left internal carotid artery stenosis had increased significantly to the point that it was over 90%. A CTA was performed to confirm which redemonstrated the lesion at 90% stenosis. Once again he was asymptomatic; however, due to his risk for severe CVA he was advised to undergo a carotid endarterectomy for stroke prevention. The procedure, risks, benefits and alternatives were discussed at length with the patient. He expressed understanding and agreement to proceed. HOSPITAL COURSE: The patient underwent his left carotid endarterectomy on 09/14/2016. As I said, this was performed without any significant complications and an EBL of 80 mL. The patient did well postoperatively. Labs remained essentially stable. Vital signs remained stable. He was taking food by mouth and ambulating without any difficulty. He had no focal neurological deficits. He was felt to be stable enough for discharge on postop day 1. PHYSICAL EXAMINATION: VITAL SIGNS: On day of discharge, vital signs were as follows: A temperature of 36.5, pulse of 80, respiratory rate of 24, blood pressure of 145/50, pulse oximetry of 93% on room air. CONSTITUTIONAL: In general the patient is a healthy for age appearing, well-nourished, well-developed elderly male in no acute distress. He ambulated without assistance and is active, alert and oriented x4 with normal recent and remote memory. HEAD: Normocephalic and atraumatic. EYES: EOMI. EARS, NOSE, MOUTH, THROAT EXAMINATION: Demonstrated no hearing loss, rhinorrhea or pharyngeal erythema. NECK: The left side of his neck his surgical site was well approximated and healing appropriately. The area is mildly tender to palpation and without significant ecchymosis. The area does have some moderate edema which is soft. His trachea is midline. HEART: Demonstrated a regular rate and rhythm. LUNGS: Decreased somewhat but clear bilaterally. EXTREMITIES: Peripheral pulses are full and equal in all extremities unless otherwise noted, specifically they were normal in his carotid, brachial, radial and femoral pulses. Bilateral lower extremity distal pulses were +1. He had brisk capillary refill and no sign of distal ischemia. ABDOMEN: Soft, nontender with normoactive bowel sounds in all 4 quadrants without guarding or rebound. There is no flank or CVA tenderness. MUSCULOSKELETAL EXAMINATION: Demonstrates normal tone and strength for age. Bilateral upper extremities demonstrate no cyanosis, edema, clubbing, varicosities or ulcers. Bilateral lower extremities demonstrate no cyanosis, edema, clubbing, varicosities or ulcers. NEUROLOGIC: The patient has demonstrated grossly intact cranial nerves, grossly intact sensation and is without any focal deficits. DIET: Should be a low-cholesterol AHA diet. MEDICATIONS: Are reconciled in the chart and are as per the discharge instructions. Followup should be with Dr. Schaeffer or his PA Karen Rouse in the office within 2 weeks postoperatively for reevaluation. He was advised to call the office with any other questions or concerns.
== END 2016-09-15 14:31 | disposition home or self-care (01) | DRG 39 ==
LOC: ENRESERVTM → ENRESERVDT → C.ACU 05:27 → C.MSICU 09:25
PROVIDERS: ADMIT Surgery Vascular Surgery; ATTEND Surgery Vascular Surgery
PROC: 03CJ0ZZ Extirpation of Matter from Left Common Carotid Artery, Open Approach (ICD-10-PCS; principal; 2016-09-14 07:30)
PROC: 03UK0JZ Supplement Right Internal Carotid Artery with Synthetic Substitute, Open Approach (ICD-10-PCS; principal; 2016-09-14 07:30)
DX: I65.22 Occlusion and stenosis of left carotid artery (principal); E78.5 Hyperlipidemia, unspecified; I10 Essential (primary) hypertension; G20 Parkinson's disease; Z86.73 Personal history of transient ischemic attack (TIA), and cerebral infarction without residual deficits; Z96.641 Presence of right artificial hip joint; Z96.653 Presence of artificial knee joint, bilateral; Z87.891 Personal history of nicotine dependence

== ENCOUNTER → 2017-08-04 | Outpatient (CLI) | payer OTHER ==
[2017-08-04 13:09] LABS: BASO % 0.2 %; BASO ABS # 0.02 K/uL (0-0.2); COMPLETE YES; EOS % 1.6 %; HEMATOCRIT 42.7 % (42-52); IG% 0.3 %; LYMPH % 19.4 %; LYMPH ABS # 2.16 K/uL (1.2-3.4); MEAN CELL VOLUME 97.9 fL (80-100); MEAN CORPUSCULAR HEMOGLOBIN 33.7 pg (25-34); MEAN CORPUSCULAR HGB CONC 34.4 g/dl (32-36); MEAN PLATELET VOLUME 10.7 fL (7.4-10.4); MONO % 8.5 %; PLATELET COUNT 271 K/uL (130-400); RED BLOOD COUNT 4.36 M/uL (4.7-6.1); WHITE BLOOD COUNT 11.16 K/uL (4.8-10.8)
[2017-08-04 13:22] LABS: ESTIMATED AVERAGE GLUCOSE 131 mg/dl; HA1C FLAG Normal (Normal)
[2017-08-04 13:34] LABS: ALT/SGPT 12 U/L (12-78); BLOOD UREA NITROGEN 14 mg/dl (7-18); BUN/CREATININE RATIO 16.3 (10-20); CALCIUM 9.6 mg/dl (8.5-10.1); CARBON DIOXIDE 28 mmol/L (21-32); CHLORIDE 103 mmol/L (98-107); CHOLESTEROL 159 mg/dl (0-200); CREATININE 0.88 mg/dl (0.60-1.40); GLUCOSE 143 mg/dl (70-99); POTASSIUM 3.8 mmol/L (3.5-5.1); SODIUM 137 mmol/L (136-145); TRIGLYCERIDES 143 mg/dl (0-150); VERY LOW DENSITY LIPOPROT CALC 29 mg/dl
[2017-08-04 13:37] LABS: ALB/GLOB RATIO 0.9 (0.9-2); ALKALINE PHOSPHATASE 87 U/L (45-117); AST/SGOT 12 U/L (15-37); CHOLESTEROL/HDL RATIO 2.8; HDL CHOLESTEROL 56 mg/dl; LDL CHOLESTEROL CALCULATED 74 mg/dl
== END | disposition home or self-care (01) ==
LOC: C.LABBC 10:12
PROVIDERS: ATTEND Internal Medicine
DX: I10 Essential (primary) hypertension (principal); E78.5 Hyperlipidemia, unspecified; I65.23 Occlusion and stenosis of bilateral carotid arteries; R73.03 Prediabetes; G20 Parkinson's disease

== ENCOUNTER 2019-04-19 04:54 | Inpatient (IN) ==
--- NOTE | 2019-04-12 14:06 | Anesthesiology Consultation ---
Date of Service April 12, 2019 Assessment & Plan (1) Encounter for pre-operative examination: s/p L TKA 2013 -- SAB x 1 with MAC without issues. Patient reports very good experience with SAB. s/p L CEA 08/2016 -- MAC #4, ETT 8.0, grade view II, atraumatic DL x 1. No major complications per record. Chart Review Chart Review: Acceptable Risk for Surgery and Patient seen in Pre Admission Testing Teaching & Discussion Instructed NPO after midnight before surgery, except medications with 15 cc of water. Medication instructions provided according to the PAT guidelines. History Surgery Operation Date: 04/19/19 11:10 Proposed Procedures p Left Total Hip Arthroplasty - Dylan Ann MD Height/Weight Height: 6 ft 2 in Weight: 109.2 kg Allergies Allergy/AdvReac Type Severity Reaction Status Date / Time No Known Allergies Allergy Unknown Verified 04/12/19 07:45 Medications Home Medications Medication Instructions Recorded Confirmed Last Taken amlodipine 10 mg PO QAM 04/12/19 04/12/19 Unknown ascorbic acid (vitamin C) [Vitamin 500 mg PO BID 04/12/19 04/12/19 Unknown C] aspirin 81 mg PO QAM 04/12/19 04/12/19 Unknown carbidopa-levodopa 1 tab PO TID 04/12/19 04/12/19 Unknown fish,bora,flax oils-[id number] 1 cap PO QAM 04/12/19 04/12/19 Unknown [[place] 3-6-9] losartan 100 mg PO QAM 04/12/19 04/12/19 Unknown multivitamin 1 tab PO QAM 04/12/19 04/12/19 Unknown simvastatin 20 mg PO QAM 04/12/19 04/12/19 Unknown Past Medical History Medical History Carotid artery stenosis S/P L CEA [address] Schaeffer 12/11/18 -- "Plan at this time is to have the patient return to our office in 1 year for reevaluation. At this point his carotid disease appears to be fairly stable with 50% stenosis of the right internal carotid artery, a patent left carotid endarterectomy without evidence of restenosis." Hyperlipidemia Hypertension Osteoarthritis Parkinson disease Skin cancer Tremor of both hands Exercise / Class Metabolic Activity II 4-5 Yardwork/Stairs/Walk up hill (Limited by hip pain somewhat but still very active at home; denies CP or SOB with 1 FOS or yardwork) Past Family History Family History Father Family history of diabetes mellitus Past Surgical History Surgical History History of carotid endarterectomy L SIDE, [place] 09/15/16 [facility] History of cataract surgery RT/LEFT History of colonoscopy History of surgery on arm LEFT ARM "INFECTION CLEANED OUT" History of tonsillectomy and adenoidectomy History of tooth extraction History of total hip arthroplasty RT History of total knee replacement RT/LEFT Past Anesthesia History No Hx of Anesthesia Complications and No Family Hx of Anesthesia Complications s/p L TKA 2013 -- SAB x 1 with MAC without issues. Patient reports very good experience with SAB. s/p L CEA 08/2016 -- MAC #4, ETT 8.0, grade view II, atraumatic DL x 1. No major complications per record. History of PONV No Hx of PONV and No Hx of Motion Sickness Social History Smoking Status: Former smoker tobacco type: cigarettes Do You Dip or Chew Tobacco: No Smoking End Date: QUIT OVER 45 YEARS Hx Alcohol Use: Yes alcohol intake frequency: a few times a month Hx Substance Use: No substance use type: does not use Review of Systems Pt denies any recent chest pain, shortness of breath, palpitations, cough, fever or URI. +baseline tremor in hands +hip pain Physical Exam Vital Signs BP: 163/69 (pt reports white coat HTN) P: 82bpm SPO2: 97% RA T: 97.8 F R: 16 Constitutional A+O x3, significant baseline tremor on B/L UE, L > R ENMT Mouth: + dentures and + edentulous Thyromental Distance: > or= 3.5 Finger Breadths (3.5) Mallampati Class: III Baseline jaw/mouth tremor. Neck + limited neck extension L CEA scar. Respiratory normal respiratory effort Auscultation: lungs clear to auscultation bilaterally Cardiovascular Rate/Rhythm: regular rate and regular rhythm Heart Sounds: no murmur Vessels: + carotid bruit (B/L) Extremities: no edema Testing Laboratory Results 04/12/19 14:39 04/12/19 14:39 PT 11.2 Seconds (9.0-12.0) 04/12/19 14:39 INR 1.1 (0.9-1.1) 04/12/19 14:39 APTT 26.3 Seconds (21.0-31.0) 04/12/19 14:39 Blood Type A Positive 04/12/19 14:39 Antibody Screen NEGATIVE 04/12/19 14:39 Electrocardiogram Date: 04/12/19 Findings: + NSR @ (76bpm) and + no change from (09/03/16) Chest X-Ray Date: 04/12/19 Chronic change, no acute process. Other Testing Carotid Doppler 12/11/18 1. 50 to 59% stenosis in the right internal carotid artery. 2. Patent left carotid endarterectomy with no evidence of restenosis. 3. Antegrade flow in both vertebral arteries. 4. Normal flow in both subclavian arteries. 5. Elevated velocities and flow disturbance in the bilateral external carotid arteries, suggesting possible stenosis.
--- NOTE | 2019-04-12 14:08 | PAT Medication Instructions ---
Medication Instructions Date of Service April 12, 2019 Home Medications amlodipine 10 mg PO QAM ascorbic acid (vitamin C) 500 mg PO BID aspirin 81 mg PO QAM carbidopa-levodopa 1 tab PO TID [[place] 3-6-9] 1 cap PO QAM losartan 100 mg PO QAM multivitamin 1 tab PO QAM simvastatin 20 mg PO QAM STOP taking 2 weeks before surgery If surgery is within 2 weeks, stop taking as soon as possible. [[place] 3-6-9] 1 cap PO QAM DO NOT take the morning of surgery ascorbic acid (vitamin C) 500 mg PO BID losartan 100 mg PO QAM multivitamin 1 tab PO QAM Take morning of surgery With a small sip of water, OTHERWISE NOTHING TO EAT OR DRINK AFTER MIDNIGHT: amlodipine 10 mg PO QAM aspirin 81 mg PO QAM carbidopa-levodopa 1 tab PO TID simvastatin 20 mg PO QAM Take evening before surgery ascorbic acid (vitamin C) 500 mg PO BID carbidopa-levodopa 1 tab PO TID Other Notes If you have any questions please call us at [phone] or [phone] or [phone] or [phone]
--- NOTE | 2019-04-12 15:48 | XRay Report ---
XR chest Pre-admission PA/Lat CLINICAL HISTORY: PAT preoperative evaluation COMPARISON STUDY: 03/12/2014 FINDINGS: Mild emphysematous change. Slight chronic interstitial and parenchymal prominence throughou t both hemithoraces. Chronic pleural thickening lateral aspect right pulmonary apex. Similar findings left pulmonary, although less prominent. IMPRESSION: Chronic change. No acute process. The above report was generated using voice recognition software. It may contain grammatical, syntax or spelling errors. Electronically signed by: Bernard Mueller M.D. 04/12/2019 3:47 PM
[2019-04-12 16:05] LABS: Basophils # (auto) 0.02 K/uL (0-0.2); Basophils % (auto) 0.3 %; Eosinophils # (auto) 0.11 K/uL (0-0.5); Eosinophils % (auto) 1.4 %; Hematocrit (blood only) 39.8 % (42-52); Hemoglobin 13.5 g/dL (14.0-18.0); Immature Granulocytes # (auto) 0.02 K/uL (0.00-0.02); Immature Granulocytes % (auto) 0.3 %; Lymphocytes # (auto) 2.27 K/uL (1.2-3.4); Lymphocytes % (auto) 29.2 %; Mean Corpuscular Hgb Conc 33.9 g/dL (32-36); Mean Corpuscular Volume 96.6 fL (80-100); Mean Platelet Volume 10.3 fL (7.4-10.4); Monocytes # (auto) 0.51 K/uL (0.11-0.59); Monocytes % (auto) 6.6 %; Neutrophils # (auto) 4.84 K/uL (1.4-6.5); Neutrophils % (auto) 62.2 %; Platelet Count 251 K/uL (130-400); RDW Coefficient of Variation 12.9 % (11.5-14.5); RDW Standard Deviation 45.5 fL (36.4-46.3); Red Blood Count 4.12 M/uL (4.7-6.1); White Blood Count 7.77 K/uL (4.8-10.8)
[2019-04-12 16:13] LABS: BUN Creatinine Ratio 17.5 (10-20); Blood Urea Nitrogen 16 mg/dl (7-18); C Reactive Protein < 0.29 mg/dl (0-0.29); Calcium 9.3 mg/dl (8.5-10.1); Carbon Dioxide 27 mmol/L (21-32); Chloride 105 mmol/L (98-107); Creatinine Clr Calc Pharmacy 87.1 ml/min; Est GFR (African American) 93.6; Est GFR (Non-African American) 80.8; Glucose 114 mg/dl (70-99); Potassium 3.9 mmol/L (3.5-5.1); Sodium 139 mmol/L (136-145)
[2019-04-12 16:14] LABS: INR 1.1 (0.9-1.1); Partial Thromboplastin Time 26.3 Seconds (21.0-31.0); Prothrombin Time 11.2 Seconds (9.0-12.0)
--- NOTE | 2019-04-14 18:56 | History and Physical Report ---
DATE OF ADMISSION: 04/19/2019 CHIEF COMPLAINT: Left hip pain. HISTORY OF PRESENT ILLNESS: The patient is an 78-year-old gentleman who is well known to me from previous right hip replacement as well as left knee replacement. Over the past several months, he has developed increased pain and discomfort in his left groin and thigh area. No particular injury. He has gotten to the point where he is using a cane to get around for the past month. He has pain with walking. He has a limited walking tolerance. He has had difficulty going up and down stairs. He has difficulty putting his shoes and socks on. He has taken various medicines without much relief. He would like to proceed with surgical treatment. The patient does have a history of Parkinson's disease over the past 10 years. It has been pretty stable without any major progression. PAST MEDICAL HISTORY: Significant for: 1. Elevated cholesterol. 2. Hypertension. 3. Parkinson's disease. 4. Gastroesophageal reflux disease. 5. Skin cancer. PAST SURGICAL HISTORY: Previous surgeries include: 1. Left knee replacement done by myself on 04/12/2014. 2. Right knee replacement done by Dr. Brunner. 3. Right total hip replacement done on 05/02/2009. 4. Left arm infection I and D. 5. Unspecified vascular surgery. ALLERGIES: None. CURRENT MEDICINES: 1. Losartan 100 mg. 2. Simvastatin 20 mg. 3. Amlodipine 10 mg. 4. Carbidopa/levodopa 25/100 two tablets 3 times a day. 5. Baby aspirin. 6. Vitamin C. 7. Blanco-3. SOCIAL HISTORY: An 78-year-old male. He is . He lives in [place]. He quit smoking 45 years ago. No alcohol intake. FAMILY HISTORY: Noncontributory. REVIEW OF SYSTEMS: Significant for well controlled Parkinson's disease. Denies any chest pain or shortness of breath. No history of DVT or PE. No known bleeding problems. PHYSICAL EXAMINATION: GENERAL: Pleasant elderly male. HEENT: Benign. NECK: Supple, no lymphadenopathy. LUNGS: Clear to auscultation. HEART: Regular rate and rhythm. ABDOMEN: Soft, nontender, nondistended. EXTREMITIES: Grossly neurovascularly intact except as follows. Examination of the left hip and leg reveals the patient walks with an antalgic gait. He comes in using a cane today. He is about a 0.5 cm short on the left side compared to right. He has pain with any type of hip motion. He can internally rotate to neutral at best. Negative straight leg raise. He is neurologically intact. X-RAYS: X-ray of left hip were reviewed. It shows advanced left hip DJD. He has got complete loss of his superior joint space. He has got fairly concentric disease. ASSESSMENT: An 78-year-old male with some stable Parkinson's disease, status post multiple joint replacements with advanced left hip degenerative joint disease. He has failed conservative treatment and would like to have his left hip replaced. PLAN: We will take him to the Operating Room and do a left total hip replacement. The risks and benefits of this procedure were explained to the patient including but not limited to DVT, PE, , infection, neurological injury, vascular injury, bleeding problem, pain, limited range of motion, stiffness, fracture, leg length inequality, nerve palsy, need for blood transfusion, etc. The patient understands and desires to proceed. Informed consent was obtained. Due to his Parkinson's disease, we are going to really try and maximize his stability. We will need to avoid narcotics to avoid confusion issues. He is planning to be discharged home with some home health. I did tell him that he has increased risk for dislocation and we will do all we can to make his hip stable.
[2019-04-19] MEDS ORDERED: TRANEXAMIC ACID 1,000 MG **IV Pre-op IV SCH (06:00)
[2019-04-19] MEDS ORDERED: ACETAMINOPHEN 500 MG TAB PO SCH (06:00)
[2019-04-19] MEDS ORDERED: LR 500ML BOLUS, THEN 15ML/HR IV SCH (06:00)
[2019-04-19] MEDS ORDERED: METOCLOPRAMIDE HCL 10 MG TABLET PO SCH (06:00)
[2019-04-19] MEDS ORDERED: CEFAZOLIN 2000MG 2,000 MG/15 ML SYR IV SCH (06:00)
[2019-04-19] MEDS ORDERED: GABAPENTIN 300 MG CAP PO SCH (06:00)
[2019-04-19] MEDS ORDERED: FAMOTIDINE 20 MG TAB PO SCH (06:00)
[2019-04-19] MEDS ORDERED: LR 60ML/HR IV SCH (06:00)
[2019-04-19] MEDS ORDERED: BUPIVACAINE 0.5 % 5 MG/1 ML PF 10ML VIAL ONE (06:27)
[2019-04-19] MEDS ORDERED: PROPOFOL IV EMULSION 10 MG/ML 20 ML VIAL IV ONE ×2 (06:32→07:20)
[2019-04-19] MEDS ORDERED: MoRPHine SULFATE PF 1 MG/ML 10 ML AMP/VIAL ONE (06:32)
[2019-04-19] MEDS ORDERED: MIDAZOLAM HCL 1 MG/ML 2ML VIAL ONE (06:32)
[2019-04-19] MEDS ORDERED: BUPIVACAINE/EPINEPHRINE 0.5% MPF 1:200,000 30 ML VIAL ONE ×2 (06:40→07:11)
[2019-04-19] MEDS ORDERED: BACITRACIN INJ 50,000 UNIT VIAL ONE (06:40)
--- NOTE | 2019-04-19 06:50 | History & Physical Bridge Note ---
Date of Service April 19, 2019 History & Physical Bridge Note I have examined the patient, reviewed the History & Physical and in the interval since the performance of the History & Physical I have noted the following changes of clinical significance: no changes noted
[2019-04-19] MEDS ORDERED: ONDANSETRON INJ 2 MG/ML 2 ML VIAL IV PRN ×2 (07:13→09:30)
[2019-04-19] MEDS ORDERED: PROMETHAZINE HCL 6.25 MG in SODIUM CHLORIDE 0.9% 50 ML IV PRN (07:13)
[2019-04-19] MEDS ORDERED: NALBUPHINE HCL INJ 10 MG/ML AMP IV PRN (07:13)
[2019-04-19] MEDS ORDERED: LACTATED RINGER'S 500 ML IV PRN (07:13)
[2019-04-19] MEDS ORDERED: KETOROLAC 30 MG/ML VIAL IV PRN (07:13)
[2019-04-19] MEDS ORDERED: NALOXONE HCL 1 MG in SODIUM CHLORIDE 0.9% 1000ML 1,000 ML IV PRN (07:13)
[2019-04-19] MEDS ORDERED: MoRPHine SULFATE PF 1 MG/ML 10 ML AMP/VIAL INT SPINAL ONE (07:13)
[2019-04-19] MEDS ORDERED: NALOXONE HCL 0.08 MG in SYRINGE 1.8 ML IV PRN (07:13)
[2019-04-19] MEDS ORDERED: DiphenhydrAMINE HCL 50 MG/ML VIAL IV PRN (07:13)
[2019-04-19] MEDS ORDERED: MEPERIDINE HCL 25 MG/ML CARP IV PRN (07:13)
[2019-04-19] MEDS ORDERED: ePHEDrine sulfate 50 MG/ML AMP IV PRN (07:13)
[2019-04-19] MEDS ORDERED: NALOXONE HCL 0.4 MG/1 ML VIAL/CARP IV PRN ×2 (07:13→09:30)
[2019-04-19] MEDS ORDERED: NO NARCOTICS OR SEDATIVES SCH (07:15)
[2019-04-19] MEDS ORDERED: DC INTRASPINAL MORPHINE SCH (07:15)
[2019-04-19] MEDS ORDERED: fentaNYL citrate 100 MCG/2 ML VIAL ONE (07:34)
[2019-04-19] MEDS ORDERED: PHENYLEPHRINE 100MCG/ML 5ML SYR ONE (08:03)
--- NOTE | 2019-04-19 08:19 | Post Operative Brief Note ---
PG Immediate Post Op with CF Date of Surgery April 19, 2019 Pre & Post Diagnosis Operation Date: 04/19/19 07:00 Pre-Op Diagnosis: Left Hip Degenerative Joint Disease Post-Op Diagnosis: Left Hip Degenerative Joint Disease Procedure Operation Date: 04/19/19 07:00 Actual Procedures p Left Total Hip Arthroplasty(Left) - Dylan Ann MD Surgeon Dylan Ann MD Validation Scientist Aroldo, PAC Estimated Blood Loss 200 Findings Consistent with Post-Op Diagnosis Fluids 1400 cc Specimens Specimen Description: PERMANENT SPECIMEN: A. LEFT FEMORAL HEAD Drains Houston Catheter Anesthesia Type Spinal MAC Complications none Disposition Accompanied Patient To Recovery: Yes Disposition: Recovery Room
--- NOTE | 2019-04-19 08:48 | XRay Report ---
XR hip 1V LT w pelvis CLINICAL HISTORY: Postoperative evaluation. COMPARISON: Pelvis and left hip radiographs April 12, 2019. FINDINGS: Alignment of the total left hip arthroplasty is anatomic. There is no periprosthetic fract ure or unexpected radiopaque foreign body. There are skin yoly. Right hip arthroplasty is noted. IMPRESSION: Expected findings following total left hip arthroplasty. Electronically signed by: Vipul Coreas M.D. 04/19/2019 8:46 AM
[2019-04-19] MEDS ORDERED: BISACODYL 10 MG SUPP PR PRN (09:30)
[2019-04-19] MEDS ORDERED: MULTIVITAMIN TAB PO SCH (09:30)
[2019-04-19] MEDS ORDERED: MAGNESIUM HYDROXIDE SUSP 30 ML UDC PO PRN (09:30)
[2019-04-19] MEDS ORDERED: ALUMINUM/MAGNESIUM SUSP 30 ML UDC PO PRN (09:30)
[2019-04-19] MEDS ORDERED: METOCLOPRAMIDE HCL INJ 5 MG/ML 2 ML VIAL IV PRN (09:30)
[2019-04-19] MEDS ORDERED: TAMSULOSIN HCL 0.4 MG CAP PO PRN (09:30)
[2019-04-19] MEDS ORDERED: TRAMADOL HCL 50 MG TABLET PO PRN (09:30)
[2019-04-19] MEDS ORDERED: HYDROmorphone INJ 0.5 MG/0.5 ML SYR IV PRN (09:30)
[2019-04-19] MEDS: SODIUM CHLORIDE 0.9% 1000ML 1,000 ML IV SCH ×5 (09:59→21:31)
--- NOTE | 2019-04-19 10:04 | Anesthesiology Progress Note ---
Date of Service April 19, 2019 Anesthesia Post Procedure Vital Signs Vital Signs: Temp Pulse Pulse Resp BP Pulse Ox Pulse Ox 04/19/19 09:52 68 16 158/73 H 96 04/19/19 09:15 37.1 C 70 18 164/70 H 97 97 04/19/19 09:00 37.2 C 65 16 133/58 L 94 04/19/19 08:50 37.2 C 76 16 149/63 H 94 04/19/19 08:40 74 16 156/63 H 94 04/19/19 08:30 76 16 142/58 H 93 04/19/19 08:20 36.7 C 82 18 155/58 H 98 04/19/19 05:21 36.7 C 84 20 192/74 H 94 Transfer of Care Handoff Completed per policy Notes Mental Status: alert / awake / arousable Patient Amnestic to Procedure: Yes Nausea / Vomiting: adequately controlled Pain: adequately controlled Airway Patency, RR, SpO2: stable & adequate BP & HR: stable & adequate Hydration State: stable & adequate Neuraxial Anesthesia: was administered and sensory block is resolving Anesthetic Complications: no major complications apparent
[2019-04-19] MEDS ORDERED: KETOROLAC TROMETHAMINE 15 MG/ML VIAL IV SCH (10:15)
[2019-04-19] MEDS ORDERED: ASCORBIC ACID 500 MG TAB PO SCH ×2 (10:15→17:00)
[2019-04-19] MEDS: ASCORBIC ACID 500 MG TAB PO SCH ×2 (11:08→16:20)
[2019-04-19] MEDS: ASPIRIN 81 MG ECTAB PO SCH ×2 (11:08→20:22)
[2019-04-19] MEDS: SIMVASTATIN 20 MG TAB PO SCH (11:09)
[2019-04-19] MEDS: MULTIVITAMIN TAB PO SCH (11:09)
[2019-04-19] MEDS: LOSARTAN POTASSIUM 50 MG TAB PO SCH (11:10)
[2019-04-19] MEDS: DOCUSATE SODIUM 100 MG CAP PO SCH ×2 (11:10→20:22)
[2019-04-19] MEDS: AMLODIPINE BESYLATE 5 MG TAB PO SCH (11:11)
[2019-04-19] MEDS: CARBIDOPA/LEVODOPA 25/100MG TAB PO SCH ×3 (11:12→20:22)
[2019-04-19] MEDS ORDERED: TRANEXAMIC ACID 1,000 MG in 0.9 % SODIUM CHLORIDE 100 ML IV SCH (12:30)
[2019-04-19] MEDS: ACETAMINOPHEN 500 MG TAB PO SCH ×2 (13:20→21:20)
[2019-04-19] MEDS: CEFAZOLIN 2000MG 2,000 MG/15 ML SYR IV SCH ×2 (14:13→22:12)
[2019-04-19] MEDS: FERROUS GLUCONATE 324 MG TAB PO SCH (16:20)
--- NOTE | 2019-04-19 18:16 | Progress Note ---
DATE: 04/19/2019 SUBJECTIVE: An 78-year-old gentleman postop day 1 from a left hip replacement. He is doing well. His pain is controlled. He has no complaints of chest pain or shortness of breath. Not feeling dizzy or lightheaded. OBJECTIVE: VITAL SIGNS: Temperature 36.7. Vital signs stable. GENERAL: Physical examination shows a pleasant elderly male. He is sitting up in his bedside chair, talking to his . He looks comfortable. LUNGS: Clear to auscultation. HEART: Has regular rate and rhythm. ABDOMEN: Soft, nontender, nondistended. EXTREMITIES: Grossly neurovascularly intact except as follows: Examination of the left lower extremity reveals the leg to be well aligned. Leg lengths are equal. Dressing is clean, dry and intact. Hip is located. He is neurologically intact. X-RAYS: X-rays of the hip from recovery room reviewed. It shows left uncemented total hip replacement. Components looked to be in good position. There are no signs of problems. ASSESSMENT: 78-year-old gentleman with underlying Parkinson's disease, postop from a left hip replacement, doing well. Pain is controlled. Hip is located. He is neurologically intact. PLAN: 1. DVT prophylaxis including thigh-high TEDs, SCDs, and aspirin twice daily. 2. PT/OT. Weight bear as tolerated. Left total hip protocol. 3. Pain control, doing pretty well with current pain regimen. 4. IV antibiotics x24 hours. 5. Disposition: Plan to discharge to home with some home health once adequately recovered.
[2019-04-19] MEDS: SENNA 8.6 MG TAB PO SCH (20:22)
--- NOTE | 2019-04-19 22:21 | Operative Report ---
DATE OF OPERATION: 04/19/2019 SURGEON: Dylan Ann M.D. TREE CUTTER: STEFFANY Villafuerte PREOPERATIVE DIAGNOSIS: Left hip degenerative joint disease. POSTOPERATIVE DIAGNOSIS: Left hip degenerative joint disease. PROCEDURE PERFORMED: Left uncemented ceramic on highly cross-linked polyethylene total hip arthroplasty. COMPLICATIONS: None. ESTIMATED BLOOD LOSS: 200 mL. FLUID REPLACEMENT: 1400 mL crystalloid fluid replacement. ANESTHESIA: Spinal. DRAINS: None. SPECIMEN: Left femoral head sent for pathology. OPERATIVE INDICATIONS: The patient is an 78-year-old gentleman who has had a history of multiple arthritic joints and had both of his knees and his right hip replaced in the past. Over the past several months, he has developed increased pain and discomfort in his left hip, which required use a cane to get around. He does have underlying Parkinson's disease, which has been stable for the past several years. X-rays show advanced hip DJD. He has failed conservative treatment and elected to proceed with surgical treatment. Due to his Parkinson's disease, we did try to maximize his femoral head size as well as instability. OPERATIVE IMPLANTS: Operative implants consisted of: 1. A Biomet G7 size 60 mm acetabular shell. 2. A 6.5 cancellous acetabular screws, 2 of 35 mm length. 3. An apex hole eliminator. 4. A highly cross-linked polyethylene liner with a 60 mm outer diameter, 40 mm inner diameter with a yanes placed inferior and posterior. 5. DePuy Corail size 15 KLA femoral stem. 6. A +12/40 mm ceramic articular ball. OPERATIVE PROCEDURE: The patient was taken to the operating room, identified and placed on the operating table in supine position. All contact areas were appropriately padded. IV antibiotics provided by anesthesia team. A spinal anesthetic had been implemented in the holding area. Houston catheter was placed in sterile fashion. The patient was then placed in a right lateral decubitus position. An axillary roll was placed. Stlberg hip positioner was used for positioning. Left hip and leg were then prepped and draped in usual sterile fashion. A posterolateral approach to the left hip was then performed through a curvilinear incision centered over the greater trochanter. Sharp dissection was carried through subcutaneous tissues down to the level of the IT band and gluteal fascia. The IT band and gluteal fascia were then incised longitudinally in line with skin incision. The greater trochanteric bursa was excised. The piriformis and external rotators were then tagged and taken off the posterior aspect of the hip joint capsule. Great care was taken throughout the procedure to protect the sciatic nerve at all times. Posterior capsulotomy was then performed leaving a large flap for later repair. The hip was internally rotated and dislocated. A femoral neck osteotomy cut was made with a final cut 15 mm above the lesser trochanter. Femoral head was removed and sent for pathology. Femur was retracted anteriorly. Attention was then drawn to the acetabulum. The acetabulum labrum was excised. The pulvinar fat was excised. Sequential reaming of the acetabulum was then performed beginning with a size 51 and progressing up to a 59 mm reamer. A 60-mm Biomet G7 acetabular shell was then placed in about 40 degrees of lateral opening and 20 degrees of anteversion. It was fixed with two 6.5 cancellous acetabular screws. Some large significant anterior osteophytes removed. A trial liner was placed. Attention was then drawn to the femur. The proximal femur was entered with SpoonRocketie cutter followed by canal finder. I then broached beginning with a size 8 and progressing up to 15. We got good fit with a 15. Calcar reamer was used to smoothen off the calcar. I then trialed the hip. Initially with the +5 ball, the soft tissue tension was quite lax. We went up to a size 12 articular ball, which seemed to recreate soft tissue tension appropriate and leg lengths appropriate. The hip was fully stable in full extension and external rotation and flexion to 90 degrees, internal rotation to about 50 degrees. I did elect to place a yanes inferior and posterior to maximize his stability, particularly posteriorly with his Parkinson's disease. We elected to place these implants. All trial implants were removed. An apex hole eliminator was placed. Highly cross-linked polyethylene liner with a yanes placed inferior and posterior was placed. A DePuy Corail size 15 KLA femoral stem was impacted in position. A +12/36 mm articular ball was placed. The hip was located and once again found to be stable. Attention was then drawn toward closing. The wound was irrigated with copious amounts of pulsatile lavage solution. I injected locally with 60 mL of 0.5% Marcaine with epinephrine. He did receive 1 g of tranexamic acid preoperatively. I did inject locally with 60 mL of 0.5% Marcaine with epinephrine. The posterior capsule and external rotators were then repaired through drill holes in the posterior trochanter with #2 Ti-Cron suture. The IT band and gluteal fascia were then closed with #1 PDS suture in running fashion. The subcutaneous tissue was then closed with 2 layers, the deep layer #1 Vicryl sutures and subcutaneous tissue with 2-0 Dexon suture in a buried interrupted fashion. Skin was closed with skin yoly. Leg was then cleaned, dried and a sterile dressing of Xeroform, 4 x 4, sterile ABD pad and foam tape was applied. The patient then transferred to the recovery room in stable condition. The patient tolerated the procedure well with no complication. All needle and sponge counts were correct at the end of the operation. I attest to the content of the Intraoperative Record and any orders documented therein. Any exception s are noted below.
[2019-04-20] MEDS ORDERED: TRAMADOL HCL 50 MG TABLET PO PRN (02:00)
[2019-04-20] MEDS: SODIUM CHLORIDE 0.9% 1000ML 1,000 ML IV SCH (02:02)
[2019-04-20] MEDS: KETOROLAC TROMETHAMINE 15 MG/ML VIAL IV SCH ×4 (02:02→20:03)
[2019-04-20 06:08] LABS: Basophils # (auto) 0.02 K/uL (0-0.2); Basophils % (auto) 0.2 %; Eosinophils % (auto) 0.9 %; Hematocrit (blood only) 37.6 % (42-52); Hemoglobin 12.8 g/dL (14.0-18.0); Immature Granulocytes # (auto) 0.01 K/uL (0.00-0.02); Immature Granulocytes % (auto) 0.1 %; Lymphocytes # (auto) 1.67 K/uL (1.2-3.4); Lymphocytes % (auto) 14.8 %; Mean Corpuscular Volume 95.9 fL (80-100); Mean Platelet Volume 9.6 fL (7.4-10.4); Monocytes # (auto) 1.13 K/uL (0.11-0.59); Neutrophils # (auto) 8.34 K/uL (1.4-6.5); Platelet Count 200 K/uL (130-400); RDW Coefficient of Variation 12.9 % (11.5-14.5); RDW Standard Deviation 44.6 fL (36.4-46.3); Red Blood Count 3.92 M/uL (4.7-6.1); White Blood Count 11.27 K/uL (4.8-10.8)
[2019-04-20 06:40] LABS: BUN Creatinine Ratio 16.9 (10-20); Calcium 8.9 mg/dl (8.5-10.1); Creatinine Clr Calc Pharmacy 85.8 ml/min; Est GFR (African American) 93.2; Est GFR (Non-African American) 80.4; Potassium 4.1 mmol/L (3.5-5.1)
[2019-04-20] MEDS: ACETAMINOPHEN 500 MG TAB PO SCH ×3 (07:10→21:33)
[2019-04-20] MEDS: FERROUS GLUCONATE 324 MG TAB PO SCH ×2 (07:11→17:23)
--- NOTE | 2019-04-20 07:25 | Anesthesiology Progress Note ---
Date of Service April 20, 2019 Anesthesia Post Procedure Vital Signs Vital Signs: Temp Pulse Pulse Pulse Resp BP Pulse Ox 04/20/19 07:00 36.7 C 99 H 16 132/66 93 04/20/19 03:09 37.0 C 89 16 154/74 H 93 04/20/19 00:15 20 91 04/19/19 23:40 20 91 04/19/19 23:09 36.6 C 97 H 16 169/69 H 92 04/19/19 22:20 18 94 04/19/19 22:19 20 94 04/19/19 21:19 18 91 04/19/19 20:17 22 96 04/19/19 19:13 20 96 04/19/19 18:19 20 93 04/19/19 17:13 22 93 04/19/19 16:18 20 93 04/19/19 15:17 22 94 04/19/19 15:06 36.7 C 90 22 167/89 H 93 04/19/19 14:14 16 95 04/19/19 13:15 17 95 04/19/19 12:15 36.4 C L 77 18 179/67 H 95 04/19/19 11:15 70 17 148/64 H 94 04/19/19 10:15 74 16 171/71 H 95 04/19/19 09:52 68 16 158/73 H 96 04/19/19 09:15 37.1 C 70 18 164/70 H 97 04/19/19 09:00 37.2 C 65 16 133/58 L 94 04/19/19 08:50 37.2 C 76 16 149/63 H 94 04/19/19 08:40 74 16 156/63 H 94 04/19/19 08:30 76 16 142/58 H 93 04/19/19 08:20 36.7 C 82 18 155/58 H 98 Pulse Ox 04/20/19 07:00 04/20/19 03:09 04/20/19 00:15 04/19/19 23:40 04/19/19 23:09 04/19/19 22:20 04/19/19 22:19 04/19/19 21:19 04/19/19 20:17 04/19/19 19:13 04/19/19 18:19 04/19/19 17:13 04/19/19 16:18 04/19/19 15:17 04/19/19 15:06 04/19/19 14:14 04/19/19 13:15 04/19/19 12:15 04/19/19 11:15 04/19/19 10:15 04/19/19 09:52 04/19/19 09:15 97 04/19/19 09:00 04/19/19 08:50 04/19/19 08:40 04/19/19 08:30 04/19/19 08:20 Notes Mental Status: alert / awake / arousable and participated in evaluation Patient Amnestic to Procedure: Yes Nausea / Vomiting: adequately controlled Pain: adequately controlled Airway Patency, RR, SpO2: stable & adequate BP & HR: stable & adequate Hydration State: stable & adequate Anesthetic Complications: Pt Satisfied with anesthetic care
--- NOTE | 2019-04-20 07:43 | Progress Note ---
DATE: 04/20/2019 SUBJECTIVE: An 78-year-old gentleman with underlying Parkinson's disease, postop day 1 from a left hip replacement. He is doing well. Very minimal pain. No chest pain or shortness of breath. Not feeling dizzy or lightheaded. OBJECTIVE: VITAL SIGNS: Temperature 36.7. Vital signs stable. GENERAL: Physical examination shows a pleasant elderly male. He is sitting up on the bedside chair and looks comfortable. EXTREMITIES: Examination of the left hip reveals the dressing to be clean, dry and intact. Leg lengths are equal. Hip is located. Thigh is soft and supple. He is neurologically intact. LABORATORY DATA: Hemoglobin 12.8. Hematocrit 37.6. Electrolytes are stable. ASSESSMENT: An 78-year-old gentleman postop day 1 from a left hip replacement, doing well. His pain is controlled. Hip is located. He is neurologically intact. PLAN: 1. DVT prophylaxis including thigh-high TEDs, SCDs, and aspirin twice daily. 2. PT/OT. Weight bear as tolerated. Left total hip protocol. 3. Pain control, doing well with current pain regimen. 4. Disposition: Plan to discharge to home with some home health once adequately recovered and medically stable.
[2019-04-20] MEDS: DOCUSATE SODIUM 100 MG CAP PO SCH ×2 (08:44→21:33)
[2019-04-20] MEDS: ASPIRIN 81 MG ECTAB PO SCH ×2 (08:45→21:33)
[2019-04-20] MEDS: MULTIVITAMIN TAB PO SCH (08:45)
[2019-04-20] MEDS: OMEGA-3 (PURIFIED FISH OIL) 1 GM CAP PO SCH (08:45)
[2019-04-20] MEDS: ASCORBIC ACID 500 MG TAB PO SCH ×2 (08:46→17:23)
[2019-04-20] MEDS: AMLODIPINE BESYLATE 5 MG TAB PO SCH (08:46)
[2019-04-20] MEDS: CARBIDOPA/LEVODOPA 25/100MG TAB PO SCH ×3 (08:47→21:33)
[2019-04-20] MEDS: SIMVASTATIN 20 MG TAB PO SCH (09:12)
[2019-04-20] MEDS: LOSARTAN POTASSIUM 50 MG TAB PO SCH (09:12)
[2019-04-20] MEDS: SENNA 8.6 MG TAB PO SCH (21:33)
[2019-04-21] MEDS: KETOROLAC TROMETHAMINE 15 MG/ML VIAL IV SCH ×2 (02:21→08:41)
[2019-04-21] MEDS: ACETAMINOPHEN 500 MG TAB PO SCH (06:04)
[2019-04-21] MEDS: FERROUS GLUCONATE 324 MG TAB PO SCH (06:04)
[2019-04-21] MEDS: CARBIDOPA/LEVODOPA 25/100MG TAB PO SCH (08:39)
[2019-04-21] MEDS: AMLODIPINE BESYLATE 5 MG TAB PO SCH (08:39)
[2019-04-21] MEDS: DOCUSATE SODIUM 100 MG CAP PO SCH (08:39)
--- NOTE | 2019-04-21 08:39 | Progress Note ---
DATE: 04/21/2019 SUBJECTIVE: An 78-year-old gentleman postop day 2 from a left hip replacement. He is doing well. Pain is controlled. No chest pain or shortness of breath. Not feeling dizzy or lightheaded. OBJECTIVE: VITAL SIGNS: Temperature 36.7. Vital signs stable. GENERAL: Physical examination shows a pleasant elderly male. He is sitting up in a bedside chair, looks comfortable. EXTREMITIES: Examination of the left hip reveals the dressing to be clean, dry and intact. Leg lengths were equal. Thigh is soft and supple. He is neurologically intact. ASSESSMENT: An 78-year-old gentleman postop day 2 from left hip replacement, doing well. Pain is controlled. He is neurologically intact. PLAN: 1. DVT prophylaxis including thigh-high TEDs, SCDs, and aspirin twice a day. 2. PT/OT. Weight bear as tolerated. Left total hip protocol. 3. Pain control, doing well with current pain regimen. 4. Disposition: Plan to discharge to home with some home health later today.
[2019-04-21] MEDS: OMEGA-3 (PURIFIED FISH OIL) 1 GM CAP PO SCH (08:40)
[2019-04-21] MEDS: LOSARTAN POTASSIUM 50 MG TAB PO SCH (08:40)
[2019-04-21] MEDS: MULTIVITAMIN TAB PO SCH (08:40)
[2019-04-21] MEDS: ASPIRIN 81 MG ECTAB PO SCH (08:40)
[2019-04-21] MEDS: SIMVASTATIN 20 MG TAB PO SCH (08:40)
[2019-04-21] MEDS: ASCORBIC ACID 500 MG TAB PO SCH (08:41)
--- NOTE | 2019-04-23 22:04 | Discharge Summary ---
ADMITTING PHYSICIAN AND SURGEON: Dr. Dylan Ann. ADMITTING DIAGNOSIS: Left hip degenerative joint disease. SURGERY PERFORMED: Left total hip arthroplasty. SECONDARY DIAGNOSES: Elevated cholesterol, hypertension, Parkinson's disease, gastroesophageal reflux disease, skin cancer. CONSULTS: None obtained. HISTORY AND PHYSICAL EXAMINATION: Well documented in the patient's chart. HOSPITAL COURSE: The patient was admitted on 04/19/2019, underwent total hip arthroplasty, tolerated the procedure well. There were no complications. He was transferred to the PACU postoperatively and later to the orthopedic floor for further care. He was given Ancef for antibiotic prophylaxis, [place] stockings, SCDs and aspirin for DVT prophylaxis. Hemoglobin, hematocrit and vital signs were monitored during his hospital stay and remained stable, did not require any blood transfusions. There were no complications. On postoperative day 2, he was tolerating a regular diet, pain was controlled with oral pain medicine. He was participating in physical therapy. Postop day 2, he was discharged home, set up with home health services. He was given printed discharge instructions as well as new prescriptions for Tylenol, aspirin and tramadol. Continue home medicines. Continue physical therapy, weightbearing as tolerated, [place] stockings, total hip precautions. Follow up approximately 2 weeks or sooner if there are any problems or concerns.
== END 2019-04-21 12:41 | disposition home health service (06) | DRG 470 ==
LOC: ASU 04:54 → 3E 08:28

== ENCOUNTER 2021-12-14 10:08 | Inpatient (IN) ==
--- NOTE | 2021-12-14 10:24 | Emergency Department Note ---
Impression & Plan Cellulitis of left leg, Leg swelling ED Provider Note NAME: DARIUS GUADALUPE AGE: 81 SEX: M : 1940 ARRIVES VIA: Walk-In INFORMANT: Patient, ED PROVIDER(S): Nik Kwan MD Chief Complaint: Left foot and toe infection/pain HPI: Patient presents due to concern for left second toe pain and associated r edness over the foot which she had noticed maybe 2 days ago. The patient had been out trimming hedges over the last 3 days on uneven ground and had noticed it started to bother him within the last 24 to 48 hours. He noticed the redness around the same time. Patient denies any falls or trauma. The patient denies any external item piercing his shoe or boot and this starting his symptoms. The patient is not a diabetic. The patient denies any fevers chills chest pain shortness of breath nausea or vomiting. Patient has not taken anything for it at home. Patient denies any abdominal pain. Patient is not on any current antibiotics. The redness has gotten slightly worse initially was in the left second toe and is now on the distal portion of the foot it is occasionally painful to palpation or ambulation. No pain at rest ROS: See HPI for pertinent positives and negatives. A total of 10 systems were reviewed and otherwise negative. Past medical history: See below Surgical history: See below Social history: See below Physical Exam: GENERAL: NAD, wearing glasses, wearing a mask, non-toxic. Hard of hearing. EYE EXAM: Normal conjunctiva. PERRL, no anisocoria and EOM's grossly intact w/o pain. OROPHARYNX: Moist mucus membranes. Grossly normal dentition. NECK: Supple, no nuchal rigidity, no adenopathy, non-tender. No signs of meningismus. LUNGS: Clear to auscultation. Normal chest wall mechanics. HEART: NSR, no MRG. ABDOMEN: Abdomen soft, non-tender, normo-active bowel sounds, no masses, no rebound or guarding. BACK: No CVA TTP. SKIN: No rashes and no bruising. UPPER EXTREMITIES: Upper extremities are grossly normal. LOWER EXTREMITIES: Right lower extremity, 2+ left lower extremity edema, redness primarily to the left second digit as well as distal portion of the dorsum of the left foot without any crepitus, no pain to the dorsum or lateral aspects of the bilateral toe. Sensate, neurovascular intact right lower extremity. No calf pain. NEURO EXAM: A&O x3, cranial nerves II-XII grossly intact, normal speech, moves all 4 extremities on command w/o issue. Differential diagnoses: Cellulitis, abscess, MRSA infection, DVT, necrotizing fasciitis, dermatitis, drug eruption, allergic reaction, as well as other pathologies. Course: Patient was seen and evaluated the bedside. Full history physical exam was performed. Imaging Studies: See Below Cardiac monitoring: An order was placed for continuous cardiac monitoring. The monitor shows a rate of 98 with sinus rhythm. MDM: Patient was seen due to concern for left foot infection. Blood work is obtained along with blood cultures and procalcitonin. I did wait on antibiotics as I did consider the possibility of starting Dalvance treatment depending on the patient's blood work and reassessment. Patient had a white count of 12 with a virtually normal hemoglobin but mild anemia of 13. The patient platelet count is unremarkable. Kidney function unremarkable. Patient's procalcitonin is not elevated. Patient did receive a small amount of IV fluids initially to monitor as the patient did have a mild elevation his heart rate prior to arrival but the patient did have lower extremity edema. Patient's DVT ultrasound is negative. Lactate is not elevated. I did offer Dalvance and close follow-up versus inpatient treatment. The patient would prefer inpatient treatment at this time for his cellulitis. I did speak with the on-call hospitalist Dr. Crawley and the patient was admitted to the medicine service. Past Med/Surg History Medical History Carotid artery stenosis S/P L CEA [address] Schaeffer 12/11/18 -- "Plan at this time is to have the patient return to our office in 1 year for reevaluation. At this point his carotid disease appears to be fairly stable with 50% stenosis of the right internal carotid artery, a patent left carotid endarterectomy without evidence of restenosis." Hyperlipidemia Hypertension Kidney stones Osteoarthritis Parkinson disease Skin cancer Thoracic ascending aortic aneurysm monitoring currently (found incidentally) Tremor of both hands Surgical History H/O bilateral hip replacements History of bilateral knee replacement History of carotid endarterectomy L Laury BRIGGS 09/15/16 [facility] History of cataract surgery RT/LEFT History of colonoscopy (03/31/12) Tubular Adenoma History of cystoscopy with stent History of esophagogastroduodenoscopy (EGD) History of surgery on arm LEFT ARM "INFECTION CLEANED OUT" History of tonsillectomy and adenoidectomy History of tooth extraction Family History Father Hypertension Diabetes Stroke Mother Stroke Other No family history of adverse response to anesthesia No family history of bleeding disorder Denies family history of Ovarian cancer Prostate cancer Dementia Myocardial infarction Breast cancer Lung cancer Colorectal cancer Asthma Social History Smoking Status: Former smoker Tobacco Type: Cigarettes Second Hand Exposure: No; Hx Alcohol Use: Yes Alcohol type: beer Alcohol Intake Frequency: Monthly or Less Hx Substance Use: No Preferred Language: Upper Sorbian Communication Ability: Effective Visual Impairment: Limited Hearing Ability: Use of Hearing Aid Clinical [employer]ogenetics Director Required: No Beliefs That Will Affect Care: None marital status: Current Living Situation: Spouse current occupational status: retired How many Children do You have: 3 Feels Safe at Home: Yes Childhood Exposure to Second-Hand Smoke: Yes caffeine: Yes Dental Care, Regularly: Yes Physical Activity Frequency: Daily Seatbelt Use: always Sunscreen Use: Yes Assistive Devices: Denture - Upper, Denture - Lower, Glasses and Hearing Aid - Bilateral Allergies Allergies Allergy/AdvReac Type Severity Reaction Status Date / Time No Known Drug Allergies Allergy Unknown Verified 12/14/21 11:09 Home Meds Home Medications Medication Instructions Recorded Confirmed ascorbic acid (vitamin C) 500 mg 500 mg PO BID 04/12/19 12/14/21 tablet (Vitamin C) fish, borage, flaxseed oils-omega 1 cap PO QAM 04/12/19 12/14/21 3,6,9 comb no.1 1,200 mg capsule (Milton 3-6-9) multivitamin 1 tab PO QAM 04/12/19 12/14/21 aspirin 81 mg tablet,delayed 81 mg PO QAM 12/14/21 12/14/21 release Previous Rx's Medication Instructions Recorded amlodipine 10 mg tablet 10 mg PO QAM #90 tab 08/31/21 losartan 100 mg tablet 100 mg PO QAM #90 tab 08/31/21 simvastatin 20 mg tablet 20 mg PO QAM #90 tab 08/31/21 carbidopa 25 mg-levodopa 100 mg 2 tab PO QID 90 Days #720 tab 12/09/21 tablet rasagiline 1 mg tablet (Azilect) 1 mg PO QAM 90 Days #90 tab 12/09/21 Results & Data (ED) Vital Signs Vital Signs - 24 hr 12/14/21 10:20 12/14/21 10:41 12/14/21 11:00 Temperature 37.2 C Temperature Source Oral Pulse Rate 102 H 102 H 88 Pulse Rate from SpO2 Sensor 88 Pulse Rhythm Regular Respiratory Rate 20 20 26 H Respiratory Effort / Characteristics Non-Labored Respiratory Depth Normal Blood Pressure 182/90 H 146/61 H Blood Pressure Mean 120 89 Pulse Oximetry 95 95 93 Oxygen Delivery Method Room Air Room Air Room Air Sepsis Recent Fever Within 48 Hours No Sepsis New/Unexplained Change in Mental Status N/A Sepsis Action Taken by Nursing No Action Required 12/14/21 11:30 12/14/21 12:30 12/14/21 13:00 Temperature Temperature Source Pulse Rate 86 85 88 Pulse Rate from SpO2 Sensor 86 83 83 Pulse Rhythm Respiratory Rate 28 H 21 25 H Respiratory Effort / Characteristics Respiratory Depth Blood Pressure 127/93 157/77 H 141/71 H Blood Pressure Mean 104 103 94 Pulse Oximetry 92 94 Oxygen Delivery Method Room Air Sepsis Recent Fever Within 48 Hours Sepsis New/Unexplained Change in Mental Status Sepsis Action Taken by Assisted Medications Current Medication List: was personally reviewed by me Laboratory Data Attestation: I reviewed the patient's lab results. Result diagrams: 12/14/21 11:20 12/14/21 11:20 Lab Results 12/14/21 12/14/21 12/14/21 Range/Units 11:20 11:20 11:20 WBC 12.19 H (4.8-10.8) K/uL RBC 4.00 L (4.7-6.1) M/uL Hgb 13.3 L (14.0-18.0) g/dL Hct 40.0 L (42-52) % MCV 100.0 (80-100) fL MCH 33.3 (25-34) pg MCHC 33.3 (32-36) g/dL RDW Std Deviation 48.1 H (36.4-46.3) fL RDW Coeff of Henry 13.2 (11.5-14.5) % Plt Count 299 (130-400) K/uL MPV 10.6 H (7.4-10.4) fL Immature Gran % (Auto) 0.2 % Neut % (Auto) 75.2 % Lymph % (Auto) 14.6 % Mower % (Auto) 9.1 % Eos % (Auto) 0.7 % Baso % (Auto) 0.2 % Neut # (Auto) 9.18 H (1.4-6.5) K/uL Lymph # (Auto) 1.78 (1.2-3.4) K/uL Mower # (Auto) 1.11 H (0.11-0.59) K/uL Eos # (Auto) 0.08 (0-0.5) K/uL Baso # (Auto) 0.02 (0-0.2) K/uL Immature Gran # (Auto) 0.02 (0.00-0.02) K/uL PT 11.4 (9.0-12.0) Seconds INR 1.1 (0.9-1.1) APTT 28.6 (21.0-31.0) Seconds PTT Ratio 1.0 Sodium 137 (136-145) mmol/L Potassium 3.9 (3.5-5.1) mmol/L Chloride 103 (98-107) mmol/L Carbon Dioxide 27 (21-32) mmol/L Anion Gap 7 (3-11) BUN 14 (6-23) mg/dl Creatinine 0.76 (0.6-1.4) mg/dl Est Cr Clr Drug Dosing 96.6 ml/min Est GFR ( Amer) 97.8 ml/min Est GFR (Non-Af Amer) 84.4 ml/min BUN/Creatinine Ratio 18.4 (10-20) Glucose 125 H (70-99(Fasting)) mg/dl Lactate (0.4-2.0) mmol/L Calcium 9.4 (8.5-10.1) mg/dl Magnesium 1.7 (1.7-2.4) mg/dl Total Bilirubin 0.8 (0.2-1.0) mg/dl AST 26 (13-39) U/L ALT 5 L (7-52) U/L Alkaline Phosphatase 75 (34-104) U/L Total Protein 7.8 (6.0-8.3) gm/dl Albumin 4.0 (3.4-5.0) gm/dl Globulin 3.8 (2.5-4.0) gm/dl Albumin/Globulin Ratio 1.1 (0.9-2) Procalcitonin (0-0.5) ng/ml SARS-CoV-2, RNA, NAAT (NEGATIVE) 12/14/21 12/14/21 12/14/21 Range/Units 11:20 11:20 13:21 WBC (4.8-10.8) K/uL RBC (4.7-6.1) M/uL Hgb (14.0-18.0) g/dL Hct (42-52) % MCV (80-100) fL MCH (25-34) pg MCHC (32-36) g/dL RDW Std Deviation (36.4-46.3) fL RDW Coeff of Henry (11.5-14.5) % Plt Count (130-400) K/uL MPV (7.4-10.4) fL Immature Gran % (Auto) % Neut % (Auto) % Lymph % (Auto) % Mower % (Auto) % Eos % (Auto) % Baso % (Auto) % Neut # (Auto) (1.4-6.5) K/uL Lymph # (Auto) (1.2-3.4) K/uL Mower # (Auto) (0.11-0.59) K/uL Eos # (Auto) (0-0.5) K/uL Baso # (Auto) (0-0.2) K/uL Immature Gran # (Auto) (0.00-0.02) K/uL PT (9.0-12.0) Seconds INR (0.9-1.1) APTT (21.0-31.0) Seconds PTT Ratio Sodium (136-145) mmol/L Potassium (3.5-5.1) mmol/L Chloride (98-107) mmol/L Carbon Dioxide (21-32) mmol/L Anion Gap (3-11) BUN (6-23) mg/dl Creatinine (0.6-1.4) mg/dl Est Cr Clr Drug Dosing ml/min Est GFR ( Amer) ml/min Est GFR (Non-Af Amer) ml/min BUN/Creatinine Ratio (10-20) Glucose (70-99(Fasting)) mg/dl Lactate 0.9 (0.4-2.0) mmol/L Calcium (8.5-10.1) mg/dl Magnesium (1.7-2.4) mg/dl Total Bilirubin (0.2-1.0) mg/dl AST (13-39) U/L ALT (7-52) U/L Alkaline Phosphatase (34-104) U/L Total Protein (6.0-8.3) gm/dl Albumin (3.4-5.0) gm/dl Globulin (2.5-4.0) gm/dl Albumin/Globulin Ratio (0.9-2) Procalcitonin 0.09 (0-0.5) ng/ml SARS-CoV-2, RNA, NAAT NEGATIVE (NEGATIVE) Administered Medications Discontinued Medications Vancomycin HCl 2,750 mg/ (Sodium Chloride) 555 mls @ 200 mls/hr IV NOW ONE Stop: 12/14/21 15:33 Last Admin: 12/14/21 13:41 Dose: 200 mls/hr Documented by: [id number] Cefepime HCl (Maxipime) 2,000 mg in 20 mls @ 5 mls/min IV NOW STA; Protocol Stop: 12/14/21 12:50 Last Admin: 12/14/21 13:16 Dose: 5 mls/min Documented by: [id number] Imaging Data Radiologist's Impression: Chest X-Ray 12/14/21 10:41 XR chest 1V portable CLINICAL HISTORY: SEPSIS TECHNIQUE: Single frontal radiograph of the chest was obtained. Comparison: Comparison is made to chest radiograph 11/03/2020 FINDINGS: No lines and tubes are seen. Calcified aortic knob is seen. The lungs are clear. No evidence of pleural effusion or pneumothorax. IMPRESSION: No acute abnormality and in particular no evidence of pneumonia. ACT 112: Negative or not required by law. Electronically signed by: Moustapha Cameron M.D. 12/14/2021 11:04 AM Foot X-Ray 12/14/21 10:41 XR foot LT min 3V routine CLINICAL HISTORY: L foot/2nd toe cellulitis TECHNIQUE: 3 views of the left foot were obtained. Comparison: None available at the time of this dictation. FINDINGS: No evidence of bony erosion is seen. Degenerative changes are seen. Soft tissue swelling is seen about the left digit. Vascular calcifications are noted. IMPRESSION: No radiographic evidence of osteomyelitis. If clinical concern remains, MRI is a more sensitive modality. Soft tissue swelling about the second digit is compatible with colitis. ACT 112: Negative or not required by law. Electronically signed by: Moustapha Cameron M.D. 12/14/2021 11:06 AM Venous Doppler Study 12/14/21 10:41 LEFT LOWER EXTREMITY VENOUS DOPPLER HISTORY: L>R LEG swelling COMPARISON STUDY: None. FINDINGS: There is normal compressibility, flow, and augmentation within the left lower extremity deep venous system. IMPRESSION: No DVT within the left lower extremity. ACT 112: Negative or not required by law. Electronically signed by: Ludwig Angel M.D. 12/14/2021 12:08 PM Discharge Plan Visit Data Chief Complaint: Foot Injury/Pain Stated Complaint: PAIN AND INFECTION LEFT FOOT ED Provider: Nik Kwan Discharge Problem: Cellulitis of left leg, Leg swelling Patient Disposition: Admitted As Inpatient Discharge Instructions Interventions: ED Discharge Assessment Last Done: 12/14/21 15:13
--- NOTE | 2021-12-14 11:06 | XRay Report ---
XR chest 1V portable CLINICAL HISTORY: SEPSIS TECHNIQUE: Single frontal radiograph of the chest was obtained. Comparison: Comparison is made to chest radiograph 11/03/2020 FINDINGS: No lines and tubes are seen. Calcified aortic knob is seen. The lungs are clear. No evidence of pleur al effusion or pneumothorax. IMPRESSION: No acute abnormality and in particular no evidence of pneumonia. ACT 112: Negative or not required by law. Electronically signed by: Moustapha Cameron M.D. 12/14/2021 11:04 AM
--- NOTE | 2021-12-14 11:07 | XRay Report ---
XR foot LT min 3V routine CLINICAL HISTORY: L foot/2nd toe cellulitis TECHNIQUE: 3 views of the left foot were obtained. Comparison: None available at the time of this dictation. FINDINGS: No evidence of bony erosion is seen. Degenerative changes are seen. Soft tissue swelling is seen abou t the left digit. Vascular calcifications are noted. IMPRESSION: No radiographic evidence of osteomyelitis. If clinical concern remains, MRI is a more sensitive modal ity. Soft tissue swelling about the second digit is compatible with colitis. ACT 112: Negative or not required by law. Electronically signed by: Moustapha Cameron M.D. 12/14/2021 11:06 AM
[2021-12-14 11:55] LABS: Basophils # (auto) 0.02 K/uL (0-0.2); Basophils % (auto) 0.2 %; Eosinophils # (auto) 0.08 K/uL (0-0.5); Eosinophils % (auto) 0.7 %; Hemoglobin 13.3 g/dL (14.0-18.0); Immature Granulocytes # (auto) 0.02 K/uL (0.00-0.02); Immature Granulocytes % (auto) 0.2 %; Lymphocytes # (auto) 1.78 K/uL (1.2-3.4); Lymphocytes % (auto) 14.6 %; Mean Corpuscular Hemoglobin 33.3 pg (25-34); Mean Corpuscular Hgb Conc 33.3 g/dL (32-36); Mean Platelet Volume 10.6 fL (7.4-10.4); Monocytes # (auto) 1.11 K/uL (0.11-0.59); Monocytes % (auto) 9.1 %; Neutrophils # (auto) 9.18 K/uL (1.4-6.5); Neutrophils % (auto) 75.2 %; Platelet Count 299 K/uL (130-400); RDW Coefficient of Variation 13.2 % (11.5-14.5); RDW Standard Deviation 48.1 fL (36.4-46.3); White Blood Count 12.19 K/uL (4.8-10.8)
[2021-12-14 12:09] LABS: INR 1.1 (0.9-1.1); Partial Thromboplastin Time 28.6 Seconds (21.0-31.0); Prothrombin Time 11.4 Seconds (9.0-12.0)
--- NOTE | 2021-12-14 12:09 | Ultrasound Report ---
LEFT LOWER EXTREMITY VENOUS DOPPLER HISTORY: L>R LEG swelling COMPARISON STUDY: None. FINDINGS: There is normal compressibility, flow, and augmentation within the left lower extremity reji p venous system. IMPRESSION: No DVT within the left lower extremity. ACT 112: Negative or not required by law. Electronically signed by: Ludwig Angel M.D. 12/14/2021 12:08 PM
[2021-12-14 12:15] LABS: Albumin Globulin Ratio 1.1 (0.9-2); BUN Creatinine Ratio 18.4 (10-20); Bilirubin,Total 0.8 mg/dl (0.2-1.0); Calcium 9.4 mg/dl (8.5-10.1); Creatinine Clr Calc Pharmacy 96.6 ml/min; Est GFR (African American) 97.8 ml/min; Est GFR (Non-African American) 84.4 ml/min; Globulin 3.8 gm/dl (2.5-4.0); Magnesium 1.7 mg/dl (1.7-2.4); Potassium 3.9 mmol/L (3.5-5.1); Total Protein 7.8 gm/dl (6.0-8.3)
[2021-12-14] MEDS ORDERED: VANCOMYCIN HCL 2,750 MG in SODIUM CHLORIDE 0.9% 500 ML IV ONE (12:47)
[2021-12-14] MEDS ORDERED: VANCOMYCIN CONSULT ACTIVE PRN ×2 (12:47→16:46)
[2021-12-14] MEDS ORDERED: CEFEPIME 2,000 MG/20 ML VIAL IV STA (12:47)
--- NOTE | 2021-12-14 13:38 | History & Physical Report ---
Date of Service December 14, 2021 Assessment & Plan (1) Cellulitis of left foot: Plan: Cellulitis of left foot- X-ray negative for osteomyelitis Venous Doppler negative for DVT Continue vancomycin IV and cefepime IV begun in the ED Keep leg elevated Bilateral lower extremity edema is likely secondary to amlodipine 10 mg dose, which we decreased to 5 mg today Hold on diuresis at this time (2) Hyperlipidemia: Plan: Continue simvastatin 20 mg in the morning (3) Hypertension: Plan: Continue losartan 100 mg every morning Decrease amlodipine from 10 to 5 mg every morning to help decrease associated edema Monitor blood pressure and adjust medications as needed Continue aspirin (4) Parkinson disease: Plan: Continue rasagiline 1 mg every morning, Continue carbidopa/levodopa 25/100, 2 tabs p.o. 4 times daily (5) Bilateral lower extremity edema: Plan: See above History of Present Illness Chief Complaint: The patient presents to the emergency department with 48 hours of worsening left foot and toe redness, warmth, swelling and noticed drainage earlier in the day today Primary Care Provider: Pranav Garcia MD The patient is a 81-year-old male with past medical history including preulcerative callus, prediabetes, left ICA stenosis, bilateral total hip arthroplasty, bilateral total knee arthroplasty, left hydronephrosis, left ureteral stone, thoracic ascending aortic aneurysm, hyperlipidemia, hypertension, and Parkinson's disease. He presents as noted above. He reports that he had noticed a callus on his left second toe, removed it, and 48 hours later had progressively worsening symptoms as noted above. In the emergency department, he had x-ray which is negative for osteomyelitis. He was started on IV vancomycin and cefepime by the ED physician. Allergies Allergy/AdvReac Type Severity Reaction Status Date / Time No Known Drug Allergies Allergy Unknown Verified 12/14/21 11:09 Home Medications Medication Instructions Recorded Confirmed Type ascorbic acid (vitamin C) 500 mg 500 mg PO BID 04/12/19 12/14/21 History tablet (Vitamin C) fish, borage, flaxseed oils-omega 1 cap PO QAM 04/12/19 12/14/21 History 3,6,9 comb no.1 1,200 mg capsule ([place] 3-6-9) multivitamin 1 tab PO QAM 04/12/19 12/14/21 History amlodipine 10 mg tablet 10 mg PO QAM #90 tab 08/31/21 12/14/21 Rx losartan 100 mg tablet 100 mg PO QAM #90 tab 08/31/21 12/14/21 Rx simvastatin 20 mg tablet 20 mg PO QAM #90 tab 08/31/21 12/14/21 Rx carbidopa 25 mg-levodopa 100 mg 2 tab PO QID 90 Days #720 tab 12/09/21 12/14/21 Rx tablet rasagiline 1 mg tablet (Azilect) 1 mg PO QAM 90 Days #90 tab 12/09/21 12/14/21 Rx aspirin 81 mg tablet,delayed 81 mg PO QAM 12/14/21 12/14/21 History release Past Med/Surg History Medical History Carotid artery stenosis S/P L CEA [address] Schaeffer 12/11/18 -- "Plan at this time is to have the patient return to our office in 1 year for reevaluation. At this point his carotid disease appears to be fairly stable with 50% stenosis of the right internal carotid artery, a patent left carotid endarterectomy without evidence of restenosis." Hyperlipidemia Hypertension Kidney stones Osteoarthritis Parkinson disease Skin cancer Thoracic ascending aortic aneurysm monitoring currently (found incidentally) Tremor of both hands Surgical History H/O bilateral hip replacements History of bilateral knee replacement History of carotid endarterectomy L SIDE, [place] 09/15/16 [facility] History of cataract surgery RT/LEFT History of colonoscopy (03/31/12) Tubular Adenoma History of cystoscopy with stent History of esophagogastroduodenoscopy (EGD) History of surgery on arm LEFT ARM "INFECTION CLEANED OUT" History of tonsillectomy and adenoidectomy History of tooth extraction Family History Father Hypertension Diabetes Stroke Mother Stroke Other No family history of adverse response to anesthesia No family history of bleeding disorder Denies family history of Ovarian cancer Prostate cancer Dementia Myocardial infarction Breast cancer Lung cancer Colorectal cancer Asthma Social History Smoking Status: Former smoker Tobacco Type: Cigarettes Second Hand Exposure: No; Hx Alcohol Use: Yes Alcohol type: beer Alcohol Intake Frequency: Monthly or Less Hx Substance Use: No Preferred Language: Mohawk Communication Ability: Effective Visual Impairment: Limited Hearing Ability: Use of Hearing Aid Aquatic Instructor Required: No Beliefs That Will Affect Care: None marital status: Current Living Situation: Spouse current occupational status: retired How many Children do You have: 3 Feels Safe at Home: Yes Childhood Exposure to Second-Hand Smoke: Yes caffeine: Yes Dental Care, Regularly: Yes Physical Activity Frequency: Daily Seatbelt Use: always Sunscreen Use: Yes Assistive Devices: Denture - Upper, Denture - Lower, Glasses and Hearing Aid - Bilateral Review of Systems Review of Systems: The patient denies chest pain, palpitations, shortness of breath, dyspnea on exertion, cough, sore throat, fevers, chills, sweats, weight change, fatigue, nausea, vomiting, diarrhea , constipation, abdominal pain, pelvic pain, blood in urine or stool, dysuria, urinary frequency or urgency, lightheadedness, dizziness, headache, memory loss, loss of consciousness, imbalance, focal or generalized weakness, numbness or tingling in arms or legs, generalized arthralgias or myalgias, back or neck pain, or night sweats. The review of systems is otherwise negative other than for that already noted above, and at least 10 systems have been reviewed. Physical Exam Physical Exam: The patient is awake, alert and oriented 3, well developed and well nourished, normocephalic and atraumatic, lying in bed and in no acute distress. HEENT--PERRL, EOMI, mucous membranes and oropharynx normal. Neck--supple. No JVD. No bruits. Thyroid normal, trachea midline, no adenopathy. Heart--normal S1 and S2. No murmurs, rubs or gallops. Lungs--clear bilaterally, no respiratory distress, no accessory muscle use. Abdomen--normal bowel sounds and soft. Nontender. Nondistended, no hernias or masses, no organomegaly. Extremities--right lower extremity 1+ pretibial pitting edema. Left lower extremity with 2+ pretibial pitting edema. Left foot with moderately severe erythema on dorsum, and first through fourth toes, most severe second toe Dermatologic--normal skin turgor, normal color, no abnormal lymph nodes, no rash. Neurologic--cranial nerves II through XII grossly intact. Rheumatologic--normal range of motion. Psychiatric--normal affect. Results & Data Results & Data ([facility]) Vital Signs (Past 12 Hours) Vital Signs Temp Pulse Resp BP Pulse Ox 12/14/21 12:30 85 21 157/77 H 94 12/14/21 11:30 86 28 H 127/93 92 12/14/21 11:00 88 26 H 146/61 H 93 12/14/21 10:41 102 H 20 95 12/14/21 10:20 37.2 C 102 H 20 182/90 H 95 Laboratory Results Laboratory Results WBC 12.19 K/uL (4.8-10.8) H 12/14/21 11:20 RBC 4.00 M/uL (4.7-6.1) L 12/14/21 11:20 Hgb 13.3 g/dL (14.0-18.0) L 12/14/21 11:20 Hct 40.0 % (42-52) L 12/14/21 11:20 MCV 100.0 fL (80-100) 12/14/21 11:20 MCH 33.3 pg (25-34) 12/14/21 11:20 MCHC 33.3 g/dL (32-36) 12/14/21 11:20 RDW Std Deviation 48.1 fL (36.4-46.3) H 12/14/21 11:20 RDW Coeff of Henry 13.2 % (11.5-14.5) 12/14/21 11:20 Plt Count 299 K/uL (130-400) 12/14/21 11:20 MPV 10.6 fL (7.4-10.4) H 12/14/21 11:20 Immature Gran % (Auto) 0.2 % 12/14/21 11:20 Neut % (Auto) 75.2 % 12/14/21 11:20 Lymph % (Auto) 14.6 % 12/14/21 11:20 Gray % (Auto) 9.1 % 12/14/21 11:20 Eos % (Auto) 0.7 % 12/14/21 11:20 Baso % (Auto) 0.2 % 12/14/21 11:20 Neut # (Auto) 9.18 K/uL (1.4-6.5) H 12/14/21 11:20 Lymph # (Auto) 1.78 K/uL (1.2-3.4) 12/14/21 11:20 Gray # (Auto) 1.11 K/uL (0.11-0.59) H 12/14/21 11:20 Eos # (Auto) 0.08 K/uL (0-0.5) 12/14/21 11:20 Baso # (Auto) 0.02 K/uL (0-0.2) 12/14/21 11:20 Immature Gran # (Auto) 0.02 K/uL (0.00-0.02) 12/14/21 11:20 PT 11.4 Seconds (9.0-12.0) 12/14/21 11:20 INR 1.1 (0.9-1.1) 12/14/21 11:20 APTT 28.6 Seconds (21.0-31.0) 12/14/21 11:20 PTT Ratio 1.0 12/14/21 11:20 Sodium 137 mmol/L (136-145) 12/14/21 11:20 Potassium 3.9 mmol/L (3.5-5.1) 12/14/21 11:20 Chloride 103 mmol/L (98-107) 12/14/21 11:20 Carbon Dioxide 27 mmol/L (21-32) 12/14/21 11:20 Anion Gap 7 (3-11) 12/14/21 11:20 BUN 14 mg/dl (6-23) 12/14/21 11:20 Creatinine 0.76 mg/dl (0.6-1.4) 12/14/21 11:20 Est Cr Clr Drug Dosing 96.6 ml/min 12/14/21 11:20 Est GFR ( Amer) 97.8 ml/min 12/14/21 11:20 Est GFR (Non-Af Amer) 84.4 ml/min 12/14/21 11:20 BUN/Creatinine Ratio 18.4 (10-20) 12/14/21 11:20 Glucose 125 mg/dl (70-99(Fasting)) H 12/14/21 11:20 Lactate 0.9 mmol/L (0.4-2.0) 12/14/21 11:20 Calcium 9.4 mg/dl (8.5-10.1) 12/14/21 11:20 Magnesium 1.7 mg/dl (1.7-2.4) 12/14/21 11:20 Total Bilirubin 0.8 mg/dl (0.2-1.0) 12/14/21 11:20 AST 26 U/L (13-39) 12/14/21 11:20 ALT 5 U/L (7-52) L 12/14/21 11:20 Alkaline Phosphatase 75 U/L (34-104) 12/14/21 11:20 Total Protein 7.8 gm/dl (6.0-8.3) 12/14/21 11:20 Albumin 4.0 gm/dl (3.4-5.0) 12/14/21 11:20 Globulin 3.8 gm/dl (2.5-4.0) 12/14/21 11:20 Albumin/Globulin Ratio 1.1 (0.9-2) 12/14/21 11:20 Procalcitonin 0.09 ng/ml (0-0.5) 12/14/21 11:20 Impressions Chest X-Ray 12/14/21 10:41 XR chest 1V portable CLINICAL HISTORY: SEPSIS TECHNIQUE: Single frontal radiograph of the chest was obtained. Comparison: Comparison is made to chest radiograph 11/03/2020 FINDINGS: No lines and tubes are seen. Calcified aortic knob is seen. The lungs are clear. No evidence of pleural effusion or pneumothorax. IMPRESSION: No acute abnormality and in particular no evidence of pneumonia. ACT 112: Negative or not required by law. Electronically signed by: Moustapha Cameron M.D. 12/14/2021 11:04 AM Foot X-Ray 12/14/21 10:41 XR foot LT min 3V routine CLINICAL HISTORY: L foot/2nd toe cellulitis TECHNIQUE: 3 views of the left foot were obtained. Comparison: None available at the time of this dictation. FINDINGS: No evidence of bony erosion is seen. Degenerative changes are seen. Soft tissue swelling is seen about the left digit. Vascular calcifications are noted. IMPRESSION: No radiographic evidence of osteomyelitis. If clinical concern remains, MRI is a more sensitive modality. Soft tissue swelling about the second digit is compatible with colitis. ACT 112: Negative or not required by law. Electronically signed by: Moustapha Cameron M.D. 12/14/2021 11:06 AM Venous Doppler Study 12/14/21 10:41 LEFT LOWER EXTREMITY VENOUS DOPPLER HISTORY: L>R LEG swelling COMPARISON STUDY: None. FINDINGS: There is normal compressibility, flow, and augmentation within the left lower extremity deep venous system. IMPRESSION: No DVT within the left lower extremity. ACT 112: Negative or not required by law. Electronically signed by: Ludwig Angel M.D. 12/14/2021 12:08 PM Code Status & VTE Plan Code Status Full code VTE Prophylaxis Plan VTE Prophylaxis will be ordered: Yes PG Care Time/CCT Total # of Minutes Spent Total Time Spent with Patient: Total time spent is greater than 50% in coordination of care (as documented) at patient's floor/unit and/or counseling patient: Coding Level of Care Code 56359 Initial Inpt Care Lvl 3 Diagnoses Cellulitis of left foot L03.116 Hyperlipidemia E78.00 Hyperlipidemia type: pure hypercholesterolemia Hypertension I10 Hypertension type: essential hypertension Parkinson disease G20 Bilateral lower extremity edema R60.0 (1) Hyperlipidemia Hyperlipidemia type: pure hypercholesterolemia Qualified Code(s): E78.00 - Pure hypercholesterolemia, unspecified (2) Hypertension Hypertension type: essential hypertension Qualified Code(s): I10 - Essential (primary) hypertension
[2021-12-14] MEDS ORDERED: VANCOMYCIN HCL 1,000 MG in SODIUM CHLORIDE 0.9% 250 ML IV SCH (16:46)
[2021-12-14] MEDS ORDERED: ONDANSETRON INJ 2 MG/ML 2 ML VIAL IV PRN (16:46)
[2021-12-14] MEDS ORDERED: ACETAMINOPHEN 325 MG TAB PO PRN (16:46)
[2021-12-14] MEDS: CARBIDOPA/LEVODOPA 25/100MG TAB PO SCH ×2 (17:54→20:20)
[2021-12-14] MEDS: ENOXAPARIN INJ 30 MG/0.3 ML SYR SQ SCH (17:54)
[2021-12-14] MEDS: ASCORBIC ACID 500 MG TAB PO SCH (20:20)
[2021-12-14] MEDS: CEFEPIME 2,000 MG in SYRINGE 0 ML IV SCH (20:20)
--- NOTE | 2021-12-14 20:25 | Pharmacy Report ---
Pharmacy Vanc AUC Short Note - Date of Service December 14, 2021 - Assessment & Plan Assessment 81 year old M receiving cefepime/vancomycin for empiric treatment of cellulitis. blood cultures pending, mild leukocytosis Plan Vancomycin * AUC/FREYA is the preferred PK/PD target for vancomycin * AUC guided dosing is effective and associated with decreased risk of nephrotoxicity compared to traditional trough targets * [place] 2750 mg given in the emergency department * 1000 mg q12H is estimated to achieve target AUC/FREYA of 400-600 mg/L.hr * Trough to be ordered if continued >48 hours Pharmacy will continue to follow and will adjust dose/frequency as necessary. Thank you.
[2021-12-15] MEDS: VANCOMYCIN HCL 1,000 MG in SODIUM CHLORIDE 0.9% 250 ML IV SCH ×2 (01:54→14:42)
[2021-12-15] MEDS: CEFEPIME 2,000 MG in SYRINGE 0 ML IV SCH ×3 (05:04→20:09)
[2021-12-15 06:38] LABS: Basophils # (auto) 0.01 K/uL (0-0.2); Basophils % (auto) 0.1 %; Eosinophils # (auto) 0.18 K/uL (0-0.5); Hemoglobin 12.6 g/dL (14.0-18.0); Immature Granulocytes # (auto) 0.02 K/uL (0.00-0.02); Immature Granulocytes % (auto) 0.2 %; Lymphocytes # (auto) 1.71 K/uL (1.2-3.4); Lymphocytes % (auto) 18.8 %; Mean Corpuscular Hemoglobin 32.7 pg (25-34); Mean Corpuscular Hgb Conc 33.2 g/dL (32-36); Mean Corpuscular Volume 98.7 fL (80-100); Mean Platelet Volume 10.1 fL (7.4-10.4); Monocytes # (auto) 0.85 K/uL (0.11-0.59); Monocytes % (auto) 9.4 %; Neutrophils # (auto) 6.31 K/uL (1.4-6.5); Neutrophils % (auto) 69.5 %; Platelet Count 279 K/uL (130-400); RDW Coefficient of Variation 13.3 % (11.5-14.5); RDW Standard Deviation 48.1 fL (36.4-46.3); Red Blood Count 3.85 M/uL (4.7-6.1); White Blood Count 9.08 K/uL (4.8-10.8)
[2021-12-15 07:07] LABS: Albumin Level 3.5 gm/dl (3.4-5.0); BUN Creatinine Ratio 15.8 (10-20); Calcium 8.9 mg/dl (8.5-10.1); Est GFR (African American) 97.8 ml/min; Est GFR (Non-African American) 84.4 ml/min; Phosphorus 2.7 mg/dl (2.5-4.9); Potassium 4.1 mmol/L (3.5-5.1)
--- NOTE | 2021-12-15 08:19 | Hospitalist Progress Note ---
Date of Service December 15, 2021 Assessment & Plan Admission and Anticipated Discharge Date Admission Date: December 14, 2021 Results & Data Results & Data ([facility]) Vital Signs (Past 12 Hours) Vital Signs Temp Pulse Resp BP BP Pulse Ox 12/15/21 07:14 36.8 C 101 H 20 172/78 H 90 12/14/21 22:44 123/63 12/14/21 22:01 36.8 C 91 H 18 173/74 H 91
[2021-12-15] MEDS: amLODIPine BESYLATE 5 MG TAB PO SCH (09:16)
[2021-12-15] MEDS: ASCORBIC ACID 500 MG TAB PO SCH ×2 (09:16→20:11)
[2021-12-15] MEDS: ASPIRIN 81 MG ECTAB PO SCH (09:17)
[2021-12-15] MEDS: CARBIDOPA/LEVODOPA 25/100MG TAB PO SCH ×4 (09:17→20:11)
[2021-12-15] MEDS: OMEGA-3 (PURIFIED FISH OIL) 1 GM CAP PO SCH (09:17)
[2021-12-15] MEDS: MULTIVITAMIN TAB PO SCH (09:18)
[2021-12-15] MEDS: LOSARTAN POTASSIUM 50 MG TAB PO SCH (09:18)
--- NOTE | 2021-12-15 12:35 | Hospitalist Progress Note ---
Date of Service December 15, 2021 Assessment & Plan (1) Cellulitis of left leg: Plan: 81 yo M Hx Parkinson's disease, HTN, HLD, TOYIN admitted for LLE cellulitis. LLE cellulitis: Presented with 1 week of worsening LE redness, swelling, and pain. Mild leukocytosis on admission, now improved s/p 1 day of Abx. XR LLE without evidence of osteomyelitis. LLE DVT study negative. Improving well with current antibiotic regimen of vanc/cefepime. Goal to ultimately transition to oral Abx, likely doxycycline if continues to improve. Cellulitis marked with marker; review markings tomorrow and if continuing to improve transition to oral antibiotics. HTN: Continue losartan. Amlodipine HLD: Continue simvastatin. Parkinson's disease: Continue carbidopa/levodopa. Code Status: FULL CODE FEN: Regular diet DVT ppx: Heparin 5000u SQ q12h Dispo: Med/Surg (2) Hyperlipidemia: (3) Hypertension: (4) Carotid artery stenosis: (5) Parkinson disease: Admission and Anticipated Discharge Date Admission Date: December 14, 2021 Supervising Physician Co-Signing Physician Notes Patient seen and examined with PGY-3 Dr. Sandoval. Agree with history, exam findings, assessment and plan of care as outlined. In brief, Mr. Bennett is an 81 year old male with history significant for hypertension and Parkinsons disease admitted with cellulitis of the left foot/2 nd toe. This afternoon, reports that the redness and pain is actually much improved since starting IV antibiotics and admission. No fevers, chills. Vital signs and nursing notes reviewed. Well appearing, non-toxic appearing. Left foot with erythema to the anterior ankle with most of the erythema concentrated over the 2nd toe with a darker, dusky appearance. There is tenderness over the DIP of the 2nd toe as well as a noted callous over the tip of the toe. Labs and imaging reviewed. 1. Cellulitis of the left foot/toe. Xray without evidence of osteomyelitis. Improving with IV vanc/cefepime. Anticipate that we may be able to transition him to oral antibiotics tomorrow. Follow up with wound care as an outpatient given that callous. Other chronic issues are stable, home medications continued. Dispo: pending clinical improvement. Subjective Patient without acute events overnight. He reports significant improvement in the swelling and amount of redness in his left leg. He denies other symptoms including fevers, chills, SOB, chest pain, abdominal pain. He reports some tenderness of the left second toe with palpation but otherwise no pain reported. Review of Systems Review of Systems: All systems reviewed & are unremarkable except as noted in Subjective Physical Exam Constitutional: WD/WN, vitals as above Skin: Left foot noted to have erythema up to the ankle with sharp line of demarcation. Left 2nd toe darker red/purple in color compared to dorsal foot. Tender to palpation at tip of left 2nd toe where a callus is noted Psychiatric: A+Ox3, euthymic affect Results & Data Results & Data ([facility]) Vital Signs (Past 12 Hours) Vital Signs Temp Pulse Resp BP Pulse Ox 12/15/21 07:14 36.8 C 101 H 20 172/78 H 90 Resident Activity Tracking Resident Involvement: Resident Care Provided Care Provided: Adult Hospital Medicine (1) Carotid artery stenosis Laterality: left Qualified Code(s): I65.22 - Occlusion and stenosis of left carotid artery (2) Hyperlipidemia Hyperlipidemia type: pure hypercholesterolemia Qualified Code(s): E78.00 - Pure hypercholesterolemia, unspecified (3) Hypertension Hypertension type: essential hypertension Qualified Code(s): I10 - Essential (primary) hypertension
[2021-12-15] MEDS: ENOXAPARIN INJ 30 MG/0.3 ML SYR SQ SCH (18:09)
[2021-12-15] MEDS ORDERED: HEPARIN SOD 5,000 UNIT/0.5 ML VIAL SQ SCH (21:00)
[2021-12-15] MEDS ORDERED: SIMVASTATIN 20 MG TAB PO SCH (21:00)
[2021-12-16] MEDS: VANCOMYCIN HCL 1,000 MG in SODIUM CHLORIDE 0.9% 250 ML IV SCH ×2 (02:09→12:51)
[2021-12-16] MEDS: CEFEPIME 2,000 MG in SYRINGE 0 ML IV SCH ×2 (05:33→12:51)
[2021-12-16 06:59] LABS: Basophils # (auto) 0.04 K/uL (0-0.2); Basophils % (auto) 0.4 %; Eosinophils % (auto) 1.9 %; Hematocrit (blood only) 39.1 % (42-52); Hemoglobin 12.9 g/dL (14.0-18.0); Immature Granulocytes # (auto) 0.01 K/uL (0.00-0.02); Immature Granulocytes % (auto) 0.1 %; Lymphocytes % (auto) 21.1 %; Mean Corpuscular Hemoglobin 32.7 pg (25-34); Mean Corpuscular Volume 99.2 fL (80-100); Monocytes # (auto) 1.07 K/uL (0.11-0.59); Monocytes % (auto) 10.2 %; Neutrophils # (auto) 6.92 K/uL (1.4-6.5); Neutrophils % (auto) 66.3 %; Platelet Count 326 K/uL (130-400); RDW Standard Deviation 47.7 fL (36.4-46.3); Red Blood Count 3.94 M/uL (4.7-6.1); White Blood Count 10.44 K/uL (4.8-10.8)
[2021-12-16 07:18] LABS: BUN Creatinine Ratio 17.6 (10-20); Calcium 9.3 mg/dl (8.5-10.1); Creatinine Clr Calc Pharmacy 100.7 ml/min; Est GFR (African American) 98.9 ml/min; Est GFR (Non-African American) 85.3 ml/min; Potassium 4.2 mmol/L (3.5-5.1)
[2021-12-16] MEDS: amLODIPine BESYLATE 5 MG TAB PO SCH (08:32)
[2021-12-16] MEDS: ASPIRIN 81 MG ECTAB PO SCH (08:32)
[2021-12-16] MEDS: ASCORBIC ACID 500 MG TAB PO SCH (08:32)
[2021-12-16] MEDS: CARBIDOPA/LEVODOPA 25/100MG TAB PO SCH ×2 (08:33→12:51)
[2021-12-16] MEDS: OMEGA-3 (PURIFIED FISH OIL) 1 GM CAP PO SCH (08:33)
[2021-12-16] MEDS: LOSARTAN POTASSIUM 50 MG TAB PO SCH (08:34)
[2021-12-16] MEDS: MULTIVITAMIN TAB PO SCH (08:34)
[2021-12-16] MEDS ORDERED: RASAGILINE 1 MG PO SCH (09:00)
--- NOTE | 2021-12-16 09:36 | Discharge Summary ---
Date of Service December 16, 2021 Admission HPI Per Admitting Provider The patient is a 81-year-old male with past medical history including preulcerative callus, prediabetes, left ICA stenosis, bilateral total hip arthroplasty, bilateral total knee arthroplasty, left hydronephrosis, left ureteral stone, thoracic ascending aortic aneurysm, hyperlipidemia, hypertension, and Parkinson's disease. He presents as noted above. He reports that he had noticed a callus on his left second toe, removed it, and 48 hours later had progressively worsening symptoms as noted above. In the emergency department, he had x-ray which is negative for osteomyelitis. He was started on IV vancomycin and cefepime by the ED physician. Admission Exam Per Admitting Provider The patient is awake, alert and oriented 3, well developed and well nourished, normocephalic and atraumatic, lying in bed and in no acute distress. HEENT--PERRL, EOMI, mucous membranes and oropharynx normal. Neck--supple. No JVD. No bruits. Thyroid normal, trachea midline, no adenopathy. Heart--normal S1 and S2. No murmurs, rubs or gallops. Lungs--clear bilaterally, no respiratory distress, no accessory muscle use. Abdomen--normal bowel sounds and soft. Nontender. Nondistended, no hernias or masses, no organomegaly. Extremities--right lower extremity 1+ pretibial pitting edema. Left lower extremity with 2+ pretibial pitting edema. Left foot with moderately severe erythema on dorsum, and first through fourth toes, most severe second toe Dermatologic--normal skin turgor, normal color, no abnormal lymph nodes, no rash. Neurologic--cranial nerves II through XII grossly intact. Rheumatologic--normal range of motion. Psychiatric--normal affect. Principal Diagnosis Cellulitis Discharge Exam Constitutional: well-appearing, no acute distress CV: extremities well-perfused Resp: breathing non-labored Skin: left 2nd-4th toes and dorsum of left foot noted with mild erythema which is within the derm marker margins drawn yesterday, mild tenderness to palpation, trace LE edema Neuro: alert, oriented, no focal neurologic deficit appreciated, resting tremor of upper extremities appreciated Discharge Data Allergies Allergy/AdvReac Type Severity Reaction Status Date / Time No Known Drug Allergies Allergy Unknown Verified 12/14/21 11:09 Consultations 12/14/21 12:47 ED Decision to Admit Stat Ordered Studies 12/14/21 10:41 US venous doppler LE LT Stat Hospital Course (1) Cellulitis of left leg: LLE cellulitis Patient presented with a one-week history of worsening LLE redness, swelling and pain. On admission, patient had a mild leukocytosis which resolved after one day of vanc/cefepime. XR was without evidence of osteomyelitis, and LLE doppler was without evidence of DVT. On hospital day two, patient's erythema significantly improved, as had patient's pain. At this time, patient's vanc/cefepime was transitioned to oral doxycycline and cephalexin. Patient was discharged on hospital day two in stable condition, and was prescribed seven days of doxycycline and cephalexin. PCP follow-up was recommended within one week of discharge. Hypertension Patient's home losartan and amlodipine were continued during this hospitalization. Hyperlipidemia Patient's home simvastatin was continued during this hospitalization. Parkinson's disease Patient's home carbidopa/levodopa and rasagiline were continued during this hospitalization. Total Time Total Time Spent Total Time Spent (In Minutes): see attending documentation Discharge Plan Discharge Items Patient Disposition: Home - Self-Care Reason For Visit: PAIN AND INFECTION LEFT FOOT Discharge Diagnosis: LLE cellulitis Activity: Resume your previous activity Non-emergency contact: Primary Care Provider Call non-emergency contact if: you have any medication questions, your symptoms worsen and you have a fever Follow-up/Referrals: Lindy Roman RN [Registered Nurse] - Pranav Garcia MD [Primary Care Provider] - 12/21/21 2:00 pm Diet: Heart Healthy Addtl Attending Provider Instructions: You were admitted to the hospital for cellulitis. This is an infection in the deepest layer of the skin and tissue beneath the skin. In some cases, the infection also affects the muscle. Cellulitis is caused by bacteria. The bacteria can enter the body through broken skin. This can happen with a cut, scratch, animal bite, or an insect bite that has been scratched. You may have been treated in the hospital with antibiotics and fluids. You will be given a prescription for antibiotics to take at home. This sheet will help you take care of yourself at home. A discharge summary will be sent to your primary care physician to ensure continuity of care. Please bring this discharge summary with you to your next office appointment so that your provider can review it at that time. Follow-up appointments: Make a follow-up appointment with your PCP within the next week. It is very important that you follow up with them shortly after discharge from the hospital. We have also requested a follow-up appointment with Wound Care to make sure your wound is monitored while it heals. Their office will call you within the next day or two to arrange a date and time. Keep all your follow-up appointments as already scheduled. If you cannot make an appointment, notify your provider. Medications: Your medication list has been reviewed and reconciled upon discharge to ensure accuracy and continuity of care. An updated list of all your medications is included with your hospital discharge paperwork. Please review this list closely, and make note of any changes. * We sent a new medication called doxycycline to your pharmacy. Take doxycycline (100mg) one capsule daily for 7 days. * We sent a new medication called cephalexin to your pharmacy. Take cephalexin (500mg) one tablet four times daily for 7 days. If you have any issues filling these prescriptions, please call [phone] and ask to leave a message for Dr. Nik Wells. Take your medications as instructed; do not skip a dose of your medicines. Make sure all of your doctors know every medicine you are taking (including bksb-gge-otpjiuq medicines, vitamins, and supplements). Call your primary care provider before taking any new medicines (including grwo-okn-elbvjvs medicines, vitamins, and supplements), because some of these may interact with your current medications, or may make your symptoms worse. Tell your primary care provider if you cannot afford your medications. Home care: Take the prescribed antibiotic medicine you are given as directed, until it is gone. Take it even if you feel better, because it treats the infection and prevents it from returning. Not taking all the medicine can make future infections hard to treat. Keep the infected area clean. Apply clean bandages as advised. When possible, raise the infected area above the level of your heart; this keeps the swelling down. Talk with your healthcare provider if you are in pain, and ask what kind of pvse-dif-hpawmlh medicine you can use for pain. Take your temperature once a day for a week. Wash your hands often to prevent spreading infection. CONTACT YOUR PRIMARY CARE PROVIDER if you experience any of the following: Fever of 100.4 or higher, shaking chills, or vomiting Worsening pain, swelling, or redness that gets worse in or around the area (particularly if the area of redness expands) Pain that gets worse in or around the infected area Trouble or pain when moving the joints above or below the infected area Difficulty following your treatment plan, or difficulty taking medications CALL 911 OR GO TO THE EMERGENCY DEPARTMENT if you experience any of the following: Severe chest pain, or chest pain that radiates (moves) to your jaw or arm Sudden, severe shortness of breath or difficulty breathing Thank you for allowing us to participate in your care. Pending Studies at Discharge: No Stand-Alone Forms: [facility] Medications and DC Order Prescriptions: New cephalexin 500 mg capsule 500 mg PO Q6H 7 Days Qty: 28 RF: 0 doxycycline hyclate 100 mg capsule 100 mg PO BID 7 Days Qty: 14 RF: 0 Continued amlodipine 10 mg tablet 10 mg PO QAM Qty: 90 RF: 3 losartan 100 mg tablet 100 mg PO QAM Qty: 90 RF: 3 simvastatin 20 mg tablet 20 mg PO QAM Qty: 90 RF: 3 carbidopa-levodopa 25-100 mg tablet 2 tab PO QID 90 Days Qty: 720 RF: 3 rasagiline [Azilect] 1 mg tablet 1 mg PO QAM 90 Days Qty: 90 RF: 3 multivitamin Tablet 1 tab PO QAM RF: 0 ascorbic acid (vitamin C) [Vitamin C] 500 mg Tablet 500 mg PO BID RF: 0 [place] 3-6-9 1,200 mg Capsule 1 cap PO QAM RF: 0 aspirin 81 mg Tablet,Delayed Release (Dr/Ec) 81 mg PO QAM RF: 0 Discharge Orders: Discharge Order (Routine); Ordered 12/16/21 Ordered By: Calli Dover/Other Patient Handouts: Type 2 Diabetes Admission Data Admit Date/Time: 12/14/21 13:28 Attending Provider: Jamil Ly Admit Provider: Lucho East Primary Care Provider: Pranav Garcia Other Providers: Lucho East Other Interventions: Discharge Summary Assessment (RN) Last Done: 12/16/21 13:52 Supervising Physician Co-Signing Physician Notes Patient seen and examined independently of Dr. Sandoval. Agree with history, exam findings, assessment and plan of care as outlined. In brief, Mr. Bennett is an 81 year old male with history significant for hypertension and Parkinsons disease admitted with cellulitis of the left foot/2 nd toe. This afternoon, reports that the redness and pain is actually much improved since starting IV antibiotics and admission. No fevers, chills. Toe is much less painful compared to yesterday. Vital signs and nursing notes reviewed. Well appearing, non-toxic appearing. Left foot with erythema to the anterior ankle with most of the erythema concentrated over the 2nd toe with a darker, dusky appearance. There is minimal tenderness over the DIP of the 2nd toe as well as a noted callous over the tip of the toe. Labs and imaging reviewed. 1. Cellulitis of the left foot/toe. Xray without evidence of osteomyelitis. Improving with IV vanc/cefepime. Transition to oral antibiotics (doxy and keflex). Referral for wound clinic made. He also has an appointment with podiatry coming up soon (he thinks this is with [facility] Dr. Roger) Other chronic issues are stable, home medications continued. Dispo: discharge home today with close follow up with PCP and wound care clinic. I personally spent 25 minutes discharge planning for this patient. Resident Activity Tracking Resident Involvement: Resident Care Provided Care Provided: Adult Hospital Medicine
== END 2021-12-16 15:15 | disposition home or self-care (01) | DRG 603 ==
LOC: ED 10:08 → SUATTDRO 13:28 → 3E 13:28

== ENCOUNTER 2023-12-05 09:25 | Inpatient (IN) ==
[2023-12-05 09:51] LABS: Basophils # (auto) 0.06 K/uL (0.00-0.20); Basophils % (auto) 0.6 %; Eosinophils # (auto) 0.12 K/uL (0.00-0.50); Eosinophils % (auto) 1.2 %; Hematocrit (blood only) 43.6 % (42.0-52.0); Hemoglobin 14.5 g/dl (14.0-18.0); Immature Granulocytes # (auto) 0.03 K/uL (0.01-0.20); Immature Granulocytes % (auto) 0.3 %; Lymphocytes # (auto) 3.12 K/uL (1.20-3.40); Mean Corpuscular Hemoglobin 32.7 pg (25.0-34.0); Mean Corpuscular Hgb Conc 33.3 g/dL (32.0-36.0); Mean Corpuscular Volume 98.2 fL (80.0-100.0); Monocytes # (auto) 0.74 K/uL (0.11-0.59); Monocytes % (auto) 7.6 %; Neutrophils # (auto) 5.69 K/uL (1.40-6.50); Neutrophils % (auto) 58.3 %; Platelet Count 225 K/uL (130-400); RDW Coefficient of Variation 12.9 % (11.5-14.5); RDW Standard Deviation 46.2 fL (36.4-46.3); Red Blood Count 4.44 M/uL (4.70-6.10); White Blood Count 9.76 K/ul (4.8-10.8)
[2023-12-05 09:57] LABS: iSTAT Creatinine 0.9 mg/dl (0.6-1.3); iSTAT Hemoglobin 15.3 g/dl (14.0-18.0); iSTAT Ionized Calcium 1.25 mmol/l (1.12-1.32)
--- NOTE | 2023-12-05 10:02 | Emergency Department Note ---
Impression & Plan ST elevation LA (STEMI), Slurred speech, Weakness ED Provider Note NAME: DARIUS GUADALUPE AGE: 83 SEX: M : 1940 ARRIVES VIA: Walk-In INFORMANT: Patient ED PROVIDER(S): Moe Gomez DO CHIEF COMPLAINT: Slurred speech HPI: Patient is an 83-year-old male who presents the ER brought in by who notes that she got up around 8 AM and noticed that he was having slurred speech and trouble getting around. He denied all other complaints. Consequently she brought him in. Last known well was last night. He denies all complaints at this time. No chest pain or shortness of breath. No nausea, vomiting, or diarrhea. He does note some weakness in his right arm. ADDITIONAL HISTORY OBTAINED: Per HPI Chronic Medical/Social Conditions Affecting Care: Per HPI PAST MEDICAL HISTORY:See Below PAST SURGICAL HISTORY:See Below FAMILY HISTORY:See Below SOCIAL HISTORY:See Below HOME MEDICATIONS:See Below ALLERGIES:See Below VITALS:See Below PHYSICAL EXAMINATION: GENERAL: Sitting up in bed, alert, diaphoretic, pale, ill-appearing EYE EXAM: normal conjunctiva. PERRL and EOM's grossly intact. OROPHARYNX: Dry mucous membrane NECK: supple, no nuchal rigidity, no adenopathy, non-tender LUNGS: Clear to auscultation. Normal chest wall mechanics HEART: no murmurs, S1 normal and S2 normal ABDOMEN: abdomen soft, non-tender, normo-active bowel sounds, no masses, no rebound or guarding. UPPER EXTREMITIES: upper extremities are grossly normal. LOWER EXTREMITIES: No pitting edema. NEURO EXAM: Awake alert and following commands, cranial nerves II-XII intact, slurred speech, weakness with grasp as well as flexion extension of right upper extremity. No weakness in left upper or left lower extremity. No weakness in right lower extremity. MEDICAL DECISION MAKING: Patient is an 83-year-old male that came through triage with present at bedside. Stroke alert was called in triage and was brought back to B1. Upon evaluation he was diaphoretic, slurring his words and did have weakness of his right upper extremity. IV was established blood work was obtained. Patient was taken emergently to CAT scan and STEMI alert was called. My concern at this time was that he was having a dissection although he adamantly denied any chest pain back pain or any complaints. While in CT he bradycardia down to the 30/20s and was immediately taking back over to the resuscitation bay. He was given additional fluids and improved significantly. At this time Dr. Julio presented at bedside. He requested a CT of the head and if negative he will take emergently to the [facility]. He was taken quickly to CTA and Noncon of the head was performed. I saw no obvious bleed. I discussed with Dr. Cameron who noted no acute bleed. Patient was taken emergently to the [facility]. I did not give any blood thinners as it was initially concern for dissection. This will be further investigated in the [facility]. Please see hospitalist as well as interventionalists note for further details. Did discuss with at bedside and she notes that her is a full code. Consults/Care Managements Discussions: Per [facility] Triage Nursing notes reviewed. Limited review of prior medical records performed Vital Signs: reviewed and remarkable for no significant abnormalities Differential diagnosis: Cardiac ischemia, aortic dissection, pulmonary embolism, pneumothorax, pneumonia, pericarditis, myocarditis, esophageal rupture, GERD, cholecystitis, pancreatitis, musculoskeletal, as well as other pathologies. ER treatment provided: See below Diagnostics interpreted by me include EKG and cardiac monitoring as listed below: -Cardiac Monitoring: An order was placed for continuous cardiac monitoring. The monitor shows a rate of 60 with sinus rhythm. -ECG: Sinus rhythm rate 61 ST segment elevations in the inferior leads with depressions in V1 and V2 QTc 398 EKG #2 Sinus rhythm rate of 57 ST segment elevation in the inferior leads as well as V1 and V2 QTc 393 -Laboratory studies:Interpreted by me as stated above in MDM and shown below. Imaging studies: Xrays: As interpreted by me:none CTs show: CT of the head Noncon per my preliminary interpretation showed no obvious bleed CT of the head per radiology showed age-indeterminate infarct Procedures:none Critical Care: I have personally spent 75 minutes of critical care time in the direct management of this patient. This includes bedside care, interpretation of diagnostic studies, and testing, discussion with consultants, patient, and family members, and other required patient management activities. This 75 minutes is in excess of all separately billable procedures. Past Med/Surg History Medical History Nephrolithiasis Bilateral lower extremity edema Kidney stones RT. Thoracic ascending aortic aneurysm monitoring currently (found incidentally) Carotid artery stenosis S/P L CEA [address] Schaeffer 12/11/18 -- "Plan at this time is to have the patient return to our office in 1 year for reevaluation. At this point his carotid disease appears to be fairly stable with 50% stenosis of the right internal carotid artery, a patent left carotid endarterectomy without evidence of restenosis." Osteoarthritis Skin cancer Tremor of both hands Parkinson disease Hypertension Hyperlipidemia Surgical History History of esophagogastroduodenoscopy (EGD) History of cystoscopy with stent RT. H/O bilateral hip replacements History of bilateral knee replacement History of surgery on arm LEFT ARM "INFECTION CLEANED OUT" History of colonoscopy (03/31/12) Tubular Adenoma History of tooth extraction History of tonsillectomy and adenoidectomy History of cataract surgery RT/LEFT History of carotid endarterectomy L S[facility] 09/15/16 [facility] Family History Father Hypertension Diabetes Stroke Mother Stroke Other No family history of adverse response to anesthesia No family history of bleeding disorder Denies family history of Ovarian cancer Prostate cancer Dementia Myocardial infarction Breast cancer Lung cancer Colorectal cancer Asthma Social History Smoking Status: Never smoker Tobacco Type: Cigarettes Second Hand Exposure: No; Do You Dip or Chew Tobacco: No; Hx Alcohol Use: Yes Alcohol type: beer Alcohol Intake Frequency: Monthly or Less Hx Substance Use: No Preferred Language: Kinyarwanda Communication Ability: Effective Visual Impairment: Limited Hearing Ability: Use of Hearing Aid Aging Room Operator Required: No Beliefs That Will Affect Care: None marital status: Current Living Situation: Spouse current occupational status: retired How many Children do You have: 3 Other Information That Helps Us Care for You: No Feels Safe at Home: Yes Safety Concerns: Feels Safe At This Time Childhood Exposure to Second-Hand Smoke: Yes Diet: regular caffeine: Yes Dental Care, Regularly: Yes Physical Activity Frequency: Daily Seatbelt Use: always Sunscreen Use: Yes Assistive Devices: Denture - Upper and Denture - Lower Allergies Allergies Allergy/AdvReac Type Severity Reaction Status Date / Time No Known Drug Allergies Allergy Unknown Verified 12/02/23 07:44 Home Meds Home Medications Medication Instructions Recorded Confirmed ascorbic acid (vitamin C) 500 mg 500 mg PO BID 04/12/19 12/02/23 tablet (Vitamin C) multivitamin 1 tab PO QAM 04/12/19 12/02/23 clopidogrel 75 mg tablet (Plavix) 75 mg PO QAM 02/12/22 12/02/23 Previous Rx's Medication Instructions Recorded rasagiline 1 mg tablet (Azilect) 1 mg PO QAM 90 days #90 tabs 12/20/22 aspirin 81 mg capsule 81 mg PO DAILY #30 caps 03/29/23 rosuvastatin 10 mg tablet 10 mg PO DAILY #90 tabs 05/22/23 carbidopa 25 mg-levodopa 100 mg 2 tab PO QID 90 days #720 tabs 06/23/23 tablet (Sinemet) amlodipine 10 mg tablet See Rx Instructions .Route 09/16/23 .COMPLEX #90 tabs losartan 100 mg tablet (Cozaar) 100 mg PO QAM #90 tabs 09/16/23 Results & Data (ED) Vital Signs Vital Signs - 24 hr 12/05/23 09:27 12/05/23 09:39 12/05/23 09:40 Temperature 36.7 C Temperature Source Oral Pulse Rate 59 L 59 L Pulse Rate [Apical] Pulse Rate from SpO2 Sensor 57 L Respiratory Rate 20 16 Respiratory Effort / Characteristics Non-Labored Respiratory Depth Normal Respiratory Pattern Regular Blood Pressure 118/65 Blood Pressure [Right Arm] Blood Pressure Mean 82 Blood Pressure Mean [Right Arm] Pulse Oximetry 94 88 L 94 Oxygen Delivery Method Room Air Room Air Oxygen Flow Rate Sepsis Recent Fever Within 48 Hours No Sepsis New/Unexplained Change in Mental Status N/A Sepsis Action Taken by Nursing No Action Required 12/05/23 09:40 12/05/23 09:51 12/05/23 09:52 Temperature Temperature Source Pulse Rate 64 Pulse Rate [Apical] 58 L Pulse Rate from SpO2 Sensor 61 Respiratory Rate 20 13 Respiratory Effort / Characteristics Non-Labored Respiratory Depth Normal Respiratory Pattern Blood Pressure 133/70 Blood Pressure [Right Arm] 114/59 L Blood Pressure Mean 78 Blood Pressure Mean [Right Arm] 77 Pulse Oximetry 94 94 Oxygen Delivery Method Room Air Oxygen Flow Rate Sepsis Recent Fever Within 48 Hours Sepsis New/Unexplained Change in Mental Status Sepsis Action Taken by Nursing 12/05/23 09:52 12/05/23 09:53 12/05/23 09:55 Temperature Temperature Source Pulse Rate 64 60 Pulse Rate [Apical] 59 L Pulse Rate from SpO2 Sensor 51 L Respiratory Rate 17 22 Respiratory Effort / Characteristics Non-Labored Respiratory Depth Normal Respiratory Pattern Blood Pressure Blood Pressure [Right Arm] 133/70 Blood Pressure Mean Blood Pressure Mean [Right Arm] 91 Pulse Oximetry 92 94 Oxygen Delivery Method Room Air Oxygen Flow Rate Sepsis Recent Fever Within 48 Hours Sepsis New/Unexplained Change in Mental Status Sepsis Action Taken by Nursing 12/05/23 10:00 12/05/23 10:09 Temperature Temperature Source Pulse Rate Pulse Rate [Apical] 63 Pulse Rate from SpO2 Sensor Respiratory Rate 20 Respiratory Effort / Characteristics Non-Labored Respiratory Depth Normal Respiratory Pattern Blood Pressure Blood Pressure [Right Arm] Blood Pressure Mean Blood Pressure Mean [Right Arm] Pulse Oximetry 93 Oxygen Delivery Method Nasal Cannula Nasal Cannula Oxygen Flow Rate 2 2 Sepsis Recent Fever Within 48 Hours Sepsis New/Unexplained Change in Mental Status Sepsis Action Taken by Nursing Laboratory Data 12/05/23 09:41 12/05/23 09:41 Lab Results 12/05/23 12/05/23 12/05/23 Range/Units 09:37 09:41 09:44 WBC 9.76 (4.8-10.8) K/ul RBC 4.44 L (4.70-6.10) M/uL Hgb 14.5 (14.0-18.0) g/dl POC Hgb 15.3 (14.0-18.0) g/dl Hct 43.6 (42.0-52.0) % POC Hct 45 (42-52) % MCV 98.2 (80.0-100.0) fL MCH 32.7 (25.0-34.0) pg MCHC 33.3 (32.0-36.0) g/dL RDW Std Deviation 46.2 (36.4-46.3) fL RDW Coeff of Henry 12.9 (11.5-14.5) % Plt Count 225 (130-400) K/uL MPV 10.0 (9.4-12.4) fL Immature Gran % (Auto) 0.3 % Neut % (Auto) 58.3 % Lymph % (Auto) 32.0 % [place] % (Auto) 7.6 % Eos % (Auto) 1.2 % Baso % (Auto) 0.6 % Neut # (Auto) 5.69 (1.40-6.50) K/uL Lymph # (Auto) 3.12 (1.20-3.40) K/uL [place] # (Auto) 0.74 H (0.11-0.59) K/uL Eos # (Auto) 0.12 (0.00-0.50) K/uL Baso # (Auto) 0.06 (0.00-0.20) K/uL Immature Gran # (Auto) 0.03 (0.01-0.20) K/uL PT 11.3 (9.0-12.0) Seconds INR 1.0 (0.9-1.1) APTT 24 (21-31) Seconds PTT Ratio 0.9 POC Sodium 140 (135-144) mmol/L Sodium 139 (136-145) mmol/L POC Potassium 4.0 (3.3-5.0) mmol/L Potassium 4.0 (3.5-5.1) mmol/L POC Chloride 103 (101-112) mmol/L Chloride 104 (98-107) mmol/L Carbon Dioxide 27 (21-32) mmol/L POC Total CO2 27 (24-31) mmol/L Anion Gap 8 (3-11) POC Anion Gap 15.0 L (16-25) mmol/L POC BUN 18 (7-18) mg/dl BUN 18 (6-23) mg/dl Creatinine 0.95 (0.6-1.4) mg/dl POC Creatinine 0.9 (0.6-1.3) mg/dl Est Cr Clr Drug Dosing 77.0 ml/min Est GFR ( Amer) 84.3 ml/min Est GFR (Non-Af Amer) 72.7 ml/min BUN/Creatinine Ratio 18.9 (10-20) Glucose 190 H (70-99(Fasting)) mg/dl POC Glucose 179 H (70-99) mg/dl POC Glucose (other) 194 H (70-99) mg/dl Calcium 9.7 (8.6-10.3) mg/dl POC Ioniz Calcium Hardeep 1.25 (1.12-1.32) mmol/l Magnesium 1.8 (1.7-2.4) mg/dl Total Bilirubin 0.7 (0.2-1.0) mg/dl AST 18 (13-39) U/L ALT 4 L (7-52) U/L Alkaline Phosphatase 79 (34-104) U/L Troponin I High Sens 4.7 (0-20) pg/ml Total Protein 7.7 (6.0-8.3) gm/dl Albumin 4.5 (3.4-5.0) gm/dl Globulin 3.2 (2.5-4.0) gm/dl Albumin/Globulin Ratio 1.4 (0.9-2) Blood Type A Positive Antibody Screen NEGATIVE Administered Medications Sodium Chloride (Nss) 1,000 mls @ 100 mls/hr IV .Q10H LÁZARO Stop: 01/04/24 11:29 Last Admin: 12/05/23 12:39 Dose: 100 mls/hr Documented By: ANTONIO Miscellaneous (Icu Protocol For Hyperglycemia) 1 each N/A ACHS LÁZARO Stop: 12/07/23 11:29 Last Admin: 12/05/23 13:08 Dose: 1 each Documented By: ANTONIO Discontinued Medications Aspirin (Aspirin 81 Mg Chew) Confirm Administered Dose 81 mg .ROUTE .STK-MED ONE Stop: 12/05/23 11:01 Last Admin: 12/05/23 11:40 Dose: 324 mg Documented By: MARKO Carbidopa/Levodopa (Carbidopa/Levodopa 25/100mg Tab) 2 tab PO ONE STA Stop: 12/05/23 11:58 Last Admin: 12/05/23 13:08 Dose: 2 tab Documented By: ANTONIO Clopidogrel Bisulfate (Clopidogrel Bisulfate 300 Mg Tab) Confirm Administered Dose 300 mg .ROUTE .STK-MED ONE Stop: 12/05/23 10:45 Last Admin: 12/05/23 11:40 Dose: 600 mg Documented By: MARKO Fentanyl Citrate (Fentanyl Citrate Pf 100 Mcg/2 Ml Vial) Confirm Administered Dose 100 mcg .ROUTE .STK-MED ONE Stop: 12/05/23 09:49 Last Increment: 12/05/23 11:38 Dose: 50 mcg Documented By: MARKO Heparin Sodium (Porcine) (Heparin (Porcine) 1000 Unit/Ml 10 Ml (Author Agent Use Only)) Confirm Administered Dose 10,000 units .ROUTE .STK-MED ONE Stop: 12/05/23 09:49 Last Admin: 12/05/23 10:48 Dose: 10,000 units Documented By: MARKO Heparin Sodium/Sodium Chloride (Heparin In Nss Infusion 1000 Unit/500 Ml (2 U/Ml) Bag) Confirm Administered Dose 3,000 units IV .STK-MED ONE Stop: 12/05/23 09:49 Last Admin: 12/05/23 10:48 Dose: 3,000 units Documented By: MARKO Ioversol (Optiray 350) Confirm Administered Dose 1 ml .ROUTE .STK-MED ONE Stop: 12/05/23 09:51 Last Admin: 12/05/23 11:38 Dose: 125 ml Documented By: SARAHI Midazolam HCl (Midazolam Hcl 1 Mg/Ml 2ml Vial) Confirm Administered Dose 2 mg .ROUTE .STK-MED ONE Stop: 12/05/23 09:48 Last Increment: 12/05/23 11:38 Dose: 1 mg Documented By: MARKO Miscellaneous (Icu Protocol For Hyperglycemia) 1 each N/A ACHS LÁZARO Stop: 12/07/23 11:33 Last Admin: 12/05/23 12:39 Dose: 1 each Documented By: ANTONIO Nicardipine HCl (Nicardipine Hcl Inj 2.5 Mg/Ml 10 Ml Amp) Confirm Administered Dose 25 mg .ROUTE .STK-MED ONE Stop: 12/05/23 09:49 Last Admin: 12/05/23 10:48 Dose: 25 mg Documented By: SARAHI Nitroglycerin/Dextrose (Nitroglycerin/D5w 100mcg/Ml 20ml Syr) Confirm Administered Dose 2,000 mcg .ROUTE .STK-MED ONE Stop: 12/05/23 09:49 Last Admin: 12/05/23 10:49 Dose: 2,000 mcg Documented By: SARAHI Ondansetron HCl (Ondansetron Inj 2 Mg/Ml 2 Ml Vial) 4 mg IV NOW STA Stop: 12/05/23 10:07 Last Admin: 12/05/23 10:07 Dose: 4 mg Documented By: CLAIRE Imaging Data Radiologist's Impression: Head CT 12/05/23 09:40 CT head/brain wo con CLINICAL HISTORY: neuro deficit, acute stroke suspected Technique: Contiguous axial CT images of the head were acquired from the base of the skull to the vertex without intravenous contrast administration. Images were viewed in brain, subdural and bone windows. Automated dose lowering techniques and/or adjustment according to patient size were utilized for this exam. Comparison: None available at the time of this dictation. Findings: Areas of decreased attenuation are present in the periventricular and subcortical white matter bilaterally consistent with small vessel ischemic disease. Generalized cerebral atrophy with commensurate enlargement of the ventricles, sulci, and cisterns is also present. There is no acute intracranial hemorrhage or evidence of acute territorial infarction. No shift of the midline structures, mass effect, or extra-axial abnormalities are shown. Atherosclerotic calcifications are present in the intracranial segments of the internal carotid arteries. Focal hypodensities in the right cerebellum. Imaged portions of the paranasal sinuses and mastoid air cells are clear. The orbits appear normal. There are no acute fractures of the calvaria or scalp swelling. Impression: No acute hemorrhage. Focal hypodensity in the right cerebellum is compatible with an age-indeterminate infarct, likely chronic. ACT 112: Negative or not required by law. Electronically signed by: Moustapha Cameron M.D. 12/05/2023 10:12 AM Discharge Plan Visit Data Chief Complaint: Stroke/CVA Symptoms Stated Complaint: SLURRED SPEECH/WEAKNESS/ ED Provider: Moe Gomez Patient Disposition: Admitted As Inpatient Discharge Instructions Interventions: ED Discharge Assessment Last Done: 12/05/23 10:09 Discharge Problem:
[2023-12-05 10:05] LABS: Partial Thromboplastin Ratio 0.9; Partial Thromboplastin Time 24 Seconds (21-31); Prothrombin Time 11.3 Seconds (9.0-12.0)
[2023-12-05] MEDS: ONDANSETRON INJ 2 MG/ML 2 ML VIAL IV STA (10:07)
[2023-12-05 10:10] LABS: Albumin Globulin Ratio 1.4 (0.9-2); Albumin Level 4.5 gm/dl (3.4-5.0); BUN Creatinine Ratio 18.9 (10-20); Bilirubin,Total 0.7 mg/dl (0.2-1.0); Calcium 9.7 mg/dl (8.6-10.3); Est GFR (African American) 84.3 ml/min; Est GFR (Non-African American) 72.7 ml/min; Globulin 3.2 gm/dl (2.5-4.0); Magnesium 1.8 mg/dl (1.7-2.4); Total Protein 7.7 gm/dl (6.0-8.3)
--- NOTE | 2023-12-05 10:11 | Pre Anesthesia Assessment ---
Date of Service December 05, 2023 Pre Sedation Assessment Vital Signs Temp Pulse Pulse Resp BP BP Pulse Ox 12/05/23 10:00 63 20 93 12/05/23 09:55 60 12/05/23 09:53 59 L 22 133/70 94 12/05/23 09:40 58 L 20 114/59 L 94 12/05/23 09:40 94 12/05/23 09:27 98.1 F 59 L 20 118/65 94 O2 Del Method O2 Flow Rate 12/05/23 10:00 Nasal Cannula 2 12/05/23 09:55 12/05/23 09:53 Room Air 12/05/23 09:40 Room Air 12/05/23 09:40 Room Air 12/05/23 09:27 Room Air Cardiovascular + regular rate Respiratory + respiratory effort normal Pre-Sedation Airway Assessment Smoking Status: Never smoker Hx Difficult Intubation: No Short, Thick Neck: No Thyromental Distance: > or= 3.5 Finger Breadths Oral Cavity: + WNL Mallampati Class: III ASA: ASA4 Procedure Planning Contraindications for Sedation: none Current Medications Reviewed: Yes Notes The planned sedation has been discussed with the patient. Informed Consent was obtained. I have identified the patient, determined the appropriateness of sedation and have assessed the patient immediately prior to the procedure. All medicine(s) and interventions are by my order.
--- NOTE | 2023-12-05 10:11 | History & Physical Report ---
Date of Service December 05, 2023 Assessment & Plan (1) Acute PR: Plan: Patient developed slurred speech and weakness the morning of 12/04; clinically, denies chest pain EKG revealed STEMI on arrival Cardiac catheterization with Dr. Julio on 12/04 100% mid RCA occlusion Successful PCI of mid RCA with single drug-eluting stent Troponin 4.7-->7980.7 on arrival Echocardiogram ordered, pending Trend troponin q6h Loaded with clopidogrel 600 mg and aspirin 324 mg High-dose statin pending am lipid panel Will likely need to start beta-jagdeep based on cardiology recommendations; pending LV function / echo Continuous telemetry monitoring A.m. CBC, BMP, A1c, fasting lipid panel (2) CVA (cerebral vascular accident): Plan: Slurred speech and RUE weakness n the morning of 12/04 No facial droop appreciated by patient's No hx of CVA per patient Patient takes ASA 81mg daily, but has not been taking plavix 75mg daily (stopped after his surgery, per ) Head CT revealed no acute hemorrhage, but noted an age-indeterminate right cerebellar infarct; likely chronic Brain MRI noted an acute left parietal infarct measuring 4cm; patient outside the window for TNKase at this time Neurochecks q2h Stroke scale QS Neurology consulted Continue daily aspirin 81mg, and re-start plavix 75mg daily No BP, labs, or IV in the RUE PT/OT consulted (3) Slurred speech: Plan: Patient passed dysphagia screen postcatheterization Speech therapy consult (4) Hyperlipidemia: Plan: Patient is normally on rosuvastatin 10 mg daily; continue for now (5) Parkinson disease: Plan: Per neurology note: "Moderate right teresita-Parkinson's diseason, tremor predominant type" Hx of age-indeterminate right cerebellum infarct on head CT (may be contributing) Continue Sinemet, rasagiline (6) Hypertension: Plan: Continue losartan, amlodipine Plan Disposition: Admit to ICU Full code T2DM, AHA diet VTE PPx: Per ICU History of Present Illness Chief Complaint: Slurred speech, weakness Primary Care Provider: Elisa Dobson MD Glen is an 83-year-old male with PMH of HTN, HLD, carotid artery stenosis, T2DM, and right-sided teresita-Parkinson's disease. He presented for slurred speech and weakness the morning of 12/04. While patient woke around 6 AM, patient's (Kaitlin) reportedly noticed slurred speech around 08:30am and drove him directly to the ED. No facial droop appreciated by the . No recent falls, trauma, or injuries to the head or neck. Patient does not use supplemental oxygen at home. No prior history of PR, CVA, or DVT/PE. Upon ED arrival, EKG revealed an inferior STEMI, and heart alert was called. Patient's SpO2 was 93% on 2L NC at this time; normotensive; vitals otherwise stable. Patient seen at the bedside later following his catheterization, and is not currently having any chest pain. Patient is an unreliable historian, and is not sure what brought him in this morning. However, chest wall is NTP, and he denies pain or pressure in his left arm or jaw. He endorses slurred speech, but he has no new complaints at this time. Reports that he is doing well. He took his regular morning medications today prior to coming in, and says there have been no recent change in medications. ROS: Patient endorses slurred speech, and resting tremor. Patient denies fever, chills, night sweats, body aches, dizziness/lighthe adedness, headache, facial droop, changes in vision, chest pain at rest/with exertion, left shoulder or jaw pain, chest palpitations, cough, SOB, pleuritic CP, abdominal pain, N/V/D, numbness or tingling in the arms, or numbness/tingling/swelling/pain in the legs. Allergies Allergy/AdvReac Type Severity Reaction Status Date / Time No Known Drug Allergies Allergy Unknown Verified 12/02/23 07:44 Home Medications Medication Instructions Recorded Confirmed Type ascorbic acid (vitamin C) 500 mg 500 mg PO BID 04/12/19 12/05/23 History tablet (Vitamin C) multivitamin 1 tab PO QAM 04/12/19 12/05/23 History rasagiline 1 mg tablet (Azilect) 1 mg PO QAM 90 days #90 tabs 12/20/22 12/05/23 Rx aspirin 81 mg capsule 81 mg PO DAILY #30 caps 03/29/23 12/05/23 Rx rosuvastatin 10 mg tablet 10 mg PO DAILY #90 tabs 05/22/23 12/05/23 Rx carbidopa 25 mg-levodopa 100 mg 2 tab PO QID 90 days #720 tabs 10/26/23 04/08/24 Rx tablet (Sinemet) amlodipine 10 mg tablet See Rx Instructions .Route 09/16/23 12/05/23 Rx .COMPLEX #90 tabs losartan 100 mg tablet (Cozaar) 100 mg PO QAM #90 tabs 09/16/23 12/05/23 Rx Past Med/Surg History Medical History Nephrolithiasis Bilateral lower extremity edema Kidney stones RT. Thoracic ascending aortic aneurysm monitoring currently (found incidentally) Carotid artery stenosis S/P L CEA [address] Schaeffer 12/11/18 -- "Plan at this time is to have the patient return to our office in 1 year for reevaluation. At this point his carotid disease appears to be fairly stable with 50% stenosis of the right internal carotid artery, a patent left carotid endarterectomy without evidence of restenosis." Osteoarthritis Skin cancer Tremor of both hands Parkinson disease Hypertension Hyperlipidemia Surgical History History of esophagogastroduodenoscopy (EGD) History of cystoscopy with stent RT. H/O bilateral hip replacements History of bilateral knee replacement History of surgery on arm LEFT ARM "INFECTION CLEANED OUT" History of colonoscopy (03/31/12) Tubular Adenoma History of tooth extraction History of tonsillectomy and adenoidectomy History of cataract surgery RT/LEFT History of carotid endarterectomy L SIDE, [place] 09/15/16 [facility] Family History Father Hypertension Diabetes Stroke Mother Stroke Other No family history of adverse response to anesthesia No family history of bleeding disorder Denies family history of Ovarian cancer Prostate cancer Dementia Myocardial infarction Breast cancer Lung cancer Colorectal cancer Asthma Social History Smoking Status: Never smoker Tobacco Type: Cigarettes Second Hand Exposure: No; Do You Dip or Chew Tobacco: No; Hx Alcohol Use: Yes Alcohol type: beer Alcohol Intake Frequency: Monthly or Less Hx Substance Use: No Preferred Language: Zimbabwean Communication Ability: Effective Visual Impairment: Limited Hearing Ability: Use of Hearing Aid Human Services Instructor Required: No Beliefs That Will Affect Care: Spiritual marital status: Current Living Situation: Spouse current occupational status: retired How many Children do You have: 3 Feels Safe at Home: Yes Childhood Exposure to Second-Hand Smoke: Yes Diet: regular caffeine: Yes Dental Care, Regularly: Yes Physical Activity Frequency: Daily Seatbelt Use: always Sunscreen Use: Yes Assistive Devices: Denture - Upper and Denture - Lower Review of Systems Review of Systems: See HPI above Physical Exam Physical Exam: General: no acute distress; pleasant affect; non-toxic appearing; cooperative HEENT: normocephalic, atraumatic; no scleral icterus; PERRLA; slow movements with EOMs; moist mucus membrane; patient demonstrates ability to protrude and wiggle tongue bilaterally; patient demonstrates ability to smile without droop, and raise eyebrows bilaterally Neck: supple; no lymphadenopathy; trachea midline; patient demonstrates ability to shrug shoulders against resistance Skin: warm, dry without signs of tenting; no cyanosis; no rashes, bruising, lesions, or erythema noted CV: chest wall NTP; RRR; S1/S2 normal; no murmurs/rubs/gallops; pulses intact and symmetric at radial, DP, and PT Lungs: no acute respiratory distress; symmetrical chest wall expansion; clear breath sounds across all lung huntley w/o adventitious sounds; no wheezing ABD: Soft, NTP; BS present; no rebound/guarding; no distention MSK: no tics or fasciculations; no edema noted in the LEs b/l, nonerythematous; 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, 5/5 in left hand; patient demonstrates the ability to wiggle toes bilaterally; full strength and active ROM of the lower extremities bilaterally and lifting legs at the hip Neuro: Alert and oriented; slurred speech; significant right upper extremity deficits; no facial droop appreciated; patient reports sensation is intact in the face/UEs/LEs bilaterally Results & Data Results & Data Vital Signs (Past 12 Hours) Vital Signs Temp Pulse Pulse Resp BP BP Pulse Ox 12/05/23 10:00 63 20 93 12/05/23 09:55 60 12/05/23 09:53 59 L 22 133/70 94 12/05/23 09:40 58 L 20 114/59 L 94 12/05/23 09:40 94 12/05/23 09:27 36.7 C 59 L 20 118/65 94 O2 Del Method O2 Flow Rate 12/05/23 10:00 Nasal Cannula 2 12/05/23 09:55 12/05/23 09:53 Room Air 12/05/23 09:40 Room Air 12/05/23 09:40 Room Air 12/05/23 09:27 Room Air Laboratory Results Abnormal lab results 12/05/23 12/05/23 12/05/23 Range/Units 09:37 09:41 09:44 RBC 4.44 L (4.70-6.10) M/uL Calvert # (Auto) 0.74 H (0.11-0.59) K/uL POC Anion Gap 15.0 L (16-25) mmol/L Glucose 190 H (70-99(Fasting)) mg/dl POC Glucose 179 H (70-99) mg/dl POC Glucose (other) 194 H (70-99) mg/dl ALT 4 L (7-52) U/L 12/05/23 Range/Units 12:45 RBC (4.70-6.10) M/uL Calvert # (Auto) (0.11-0.59) K/uL POC Anion Gap (16-25) mmol/L Glucose (70-99(Fasting)) mg/dl POC Glucose 168 H (70-99) mg/dl POC Glucose (other) (70-99) mg/dl ALT (7-52) U/L Diagnostic Findings Head CT 12/05/23 09:40 CT head/brain wo con CLINICAL HISTORY: neuro deficit, acute stroke suspected Technique: Contiguous axial CT images of the head were acquired from the base of the skull to the vertex without intravenous contrast administration. Images were viewed in brain, subdural and bone windows. Automated dose lowering techniques and/or adjustment according to patient size were utilized for this exam. Comparison: None available at the time of this dictation. Findings: Areas of decreased attenuation are present in the periventricular and subcortical white matter bilaterally consistent with small vessel ischemic disease. Generalized cerebral atrophy with commensurate enlargement of the ventricles, sulci, and cisterns is also present. There is no acute intracranial hemorrhage or evidence of acute territorial infarction. No shift of the midline structures, mass effect, or extra-axial abnormalities are shown. Atherosclerotic calcifications are present in the intracranial segments of the internal carotid arteries. Focal hypodensities in the right cerebellum. Imaged portions of the paranasal sinuses and mastoid air cells are clear. The orbits appear normal. There are no acute fractures of the calvaria or scalp swelling. Impression: No acute hemorrhage. Focal hypodensity in the right cerebellum is compatible with an age-indeterminate infarct, likely chronic. ACT 112: Negative or not required by law. Electronically signed by: Moustapha Cameron M.D. 12/05/2023 10:12 AM Code Status & VTE Plan Code Status Full code (discussed with and patient at the bedside) VTE Prophylaxis Plan VTE Prophylaxis will be ordered: Yes Supervising Physician Co-Signing Physician Notes I personally saw and examined the patient. I independently reviewed the labs, EKG, imaging, problem list, medication list, past medical history and family history. I verified all schuster points and agree with Ludwig Campos PA-C with the following exceptions and/or additions: 83-year-old male presents to the ER with slurred speech and right-sided upper extremity weakness. Patient was seen prior to emergent cardiac catheterization. He was diaphoretic and bradycardic. Brief history taken due to emergent need for cardiac catheterization from notes and ER physician. Patient unable to give history. Please see full history as above. O/E Alert but confused, Moving all 4 extremities, HS bradycardia, regular rhythm, no murmurs, Chest CTAB, Abdo SNT A/P Inferior STEMI - s/p AUBRIE to mid RCA. ASA, clopidogrel, defer BB to cardiology. Continue rosuvastatin, consider high dose depending on lipid panel in AM Stroke-like symptoms - ?poor perfusion from STEMI to old right cerebellar infarct vs new acute CVA. He has history of right sided Parkinson's per prior n eurology note. Brain MRI once more stable. Notably he did not get CTA neck/head as he had to be pulled off the CT due to emergent need for stent - recommend performing this tomorrow as just had contrast with his cardiac catheterization PG Care Time/CCT Total # of Minutes Spent Total Time Spent with Patient: Total time spent is greater than 50% in coordination of care (as documented) at patient's floor/unit and/or counseling patient: Coding [place] [address] INT INP/OBS CARE 3/75MIN Patient Type Established Medical Decision Making High Complexity Diagnoses Acute PR I21.9 CVA (cerebral vascular accident) I63.9 Slurred speech R47.81 Pure hypercholesterolemia E78.00 Hyperlipidemia type: pure hypercholesterolemia Parkinson disease G20 Essential hypertension I10 Hypertension type: essential hypertension (4) Hyperlipidemia Hyperlipidemia type: pure hypercholesterolemia Qualified Code(s): E78.00 - Pure hypercholesterolemia, unspecified (6) Hypertension Hypertension type: essential hypertension Qualified Code(s): I10 - Essential (primary) hypertension
--- NOTE | 2023-12-05 10:14 | CT Scan Report ---
CT head/brain wo con CLINICAL HISTORY: neuro deficit, acute stroke suspected Technique: Contiguous axial CT images of the head were acquired from the base of the skull to the sury magdalene without intravenous contrast administration. Images were viewed in brain, subdural and bone [facility]. Automated dose lowering techniques and/or adjustment according to patient size were utilized for this exam. Comparison: None available at the time of this dictation. Findings: Areas of decreased attenuation are present in the periventricular and subcortical white matter bilate rally consistent with small vessel ischemic disease. Generalized cerebral atrophy with commensurate e nlargement of the ventricles, sulci, and cisterns is also present. There is no acute intracranial hem orrhage or evidence of acute territorial infarction. No shift of the midline structures, mass effect, or extra-axial abnormalities are shown. Atherosclerotic calcifications are present in the intracran ial segments of the internal carotid arteries. Focal hypodensities in the right cerebellum. Imaged portions of the paranasal sinuses and mastoid air cells are clear. The orbits appear normal. There are no acute fractures of the calvaria or scalp swelling. Impression: No acute hemorrhage. Focal hypodensity in the right cerebellum is compatible with an age-indeterminat e infarct, likely chronic. ACT 112: Negative or not required by law. Electronically signed by: Moustapha Cameron M.D. 12/05/2023 10:12 AM
[2023-12-05 10:16] LABS: Troponin I High Sensitivity 4.7 pg/ml (0-20)
--- NOTE | 2023-12-05 10:16 | Cardiology Consultation ---
Date of Consultation December 05, 2023 Assessment & Plan (1) Acute SD: Presentation potentially consistent with inferior STEMI and recommend proceeding with emergent cardiac catheterization and possible primary PCI. No apparent contraindications to procedure. Discussed risks, benefits, alternatives of procedure with patient and his and they are willing to proceed. Further recommendations pending findings of coronary angiography. History of Present Illness Attending Physician: Joseph Julio MD History of Present Illness Mr. Bennett is a 83-year-old man seen emergently in the ED due to concern for acute SD. Patient has no prior cardiac history. History of type 2 diabetes, Parkinson's disease, hypertension and carotid artery disease post left carotid artery endarterectomy and has known ~70% right ICA stenosis. Also has a history of lower extremity PAD post prior endovascular intervention and stable thoracic aortic aneurysm at 4.5 cm on last imaging. Per patient's was in his usual state of health yesterday. This morning he had no particular complaints but she noted that his speech sounded slurred. As result was taken to ED where initially there was some concern for slurred speech and right arm weakness. A stroke alert was activated and patient taken emergently to CT scan. During attempted CT patient became transiently bradycardic down to 30s. ECG showed sinus rhythm with inferior ST elevations. Underwent noncontrast head CT which showed no bleeding. At present patient denies any chest pain. Neurologic symptoms largely resolved. Does report nausea. Hemodynamically stable. Allergies Allergy/AdvReac Type Severity Reaction Status Date / Time No Known Drug Allergies Allergy Unknown Verified 12/02/23 07:44 Home Medications Medication Instructions Recorded Confirmed Type ascorbic acid (vitamin C) 500 mg 500 mg PO BID 04/12/19 12/02/23 History tablet (Vitamin C) multivitamin 1 tab PO QAM 04/12/19 12/02/23 History clopidogrel 75 mg tablet (Plavix) 75 mg PO QAM 02/12/22 12/02/23 History rasagiline 1 mg tablet (Azilect) 1 mg PO QAM 90 days #90 tabs 12/20/22 12/02/23 Rx aspirin 81 mg capsule 81 mg PO DAILY #30 caps 03/29/23 12/02/23 Rx rosuvastatin 10 mg tablet 10 mg PO DAILY #90 tabs 05/22/23 12/02/23 Rx carbidopa 25 mg-levodopa 100 mg 2 tab PO QID 90 days #720 tabs 06/23/23 12/02/23 Rx tablet (Sinemet) amlodipine 10 mg tablet See Rx Instructions .Route 09/16/23 12/02/23 Rx .COMPLEX #90 tabs losartan 100 mg tablet (Cozaar) 100 mg PO QAM #90 tabs 09/16/23 12/02/23 Rx Patient History Medical History Nephrolithiasis Bilateral lower extremity edema Kidney stones Thoracic ascending aortic aneurysm Carotid artery stenosis Osteoarthritis Skin cancer Tremor of both hands Parkinson disease Hypertension Hyperlipidemia Surgical History History of esophagogastroduodenoscopy (EGD) History of cystoscopy H/O bilateral hip replacements History of bilateral knee replacement History of surgery on arm History of colonoscopy (03/31/12) History of tooth extraction History of tonsillectomy and adenoidectomy History of cataract surgery History of carotid endarterectomy Family History Father Hypertension Diabetes Stroke Mother Stroke Other No family history of adverse response to anesthesia No family history of bleeding disorder Denies family history of Ovarian cancer Prostate cancer Dementia Myocardial infarction Breast cancer Lung cancer Colorectal cancer Asthma Social History Smoking Status: Never smoker Tobacco Type: Cigarettes Second Hand Exposure: No; Do You Dip or Chew Tobacco: No; Hx Alcohol Use: Yes Alcohol type: beer Alcohol Intake Frequency: Monthly or Less Hx Substance Use: No Preferred Language: Maori Communication Ability: Effective Visual Impairment: Limited Hearing Ability: Use of Hearing Aid Multi Skilled Operator Required: No Beliefs That Will Affect Care: None marital status: Current Living Situation: Spouse current occupational status: retired How many Children do You have: 3 Feels Safe at Home: Yes Childhood Exposure to Second-Hand Smoke: Yes Diet: regular caffeine: Yes Dental Care, Regularly: Yes Physical Activity Frequency: Daily Seatbelt Use: always Sunscreen Use: Yes Assistive Devices: Denture - Upper and Denture - Lower Review of Systems Review of Systems: Not obtained in the setting of emergent situation Physical Exam Physical Exam: General: Uncomfortable HEENT: Sclerae anicteric Lungs: Clear to auscultation bilaterally Cardiac: Regular rate and rhythm Vascular: 2+ radial Abdomen: Soft, nontender Extremities: Well perfused, no peripheral edema Psych: Alert oriented, flat Results & Data Vital Signs (Past 12 Hours) Vital Signs Temp Pulse Pulse Resp BP BP Pulse Ox 12/05/23 10:09 12/05/23 10:00 63 20 93 12/05/23 09:55 60 12/05/23 09:53 59 L 22 133/70 94 12/05/23 09:40 58 L 20 114/59 L 94 12/05/23 09:40 94 12/05/23 09:27 98.1 F 59 L 20 118/65 94 O2 Del Method O2 Flow Rate 12/05/23 10:09 Nasal Cannula 2 12/05/23 10:00 Nasal Cannula 2 12/05/23 09:55 12/05/23 09:53 Room Air 12/05/23 09:40 Room Air 12/05/23 09:40 Room Air 12/05/23 09:27 Room Air PG Care Time/CCT Total # of Minutes Spent Total Time Spent with Patient: Total time spent is greater than 50% in coordination of care (as documented) at patient's floor/unit and/or counseling patient: Coding Level of Care Code 23864 ER DEPT VISIT HIGH LVL 5 Diagnoses Acute SD I21.9
[2023-12-05] MEDS: HEPARIN (PORCINE) 1000 UNIT/ML 10 ML (CATH LAB USE ONLY) ONE ×2 (10:48→15:28)
[2023-12-05] MEDS: niCARdipine HCL INJ 2.5 MG/ML 10 ML AMP ONE (10:48)
[2023-12-05] MEDS: NITROGLYCERIN/D5W 100MCG/ML 20ML SYR ONE (10:49)
--- NOTE | 2023-12-05 11:18 | Post Anesthesia Assessment ---
Date of Service December 05, 2023 Post Sedation Assessment Vital Signs Temp Pulse Pulse Resp BP BP Pulse Ox 12/05/23 10:09 12/05/23 10:00 63 20 93 12/05/23 09:55 60 12/05/23 09:53 59 L 22 133/70 94 12/05/23 09:40 58 L 20 114/59 L 94 12/05/23 09:40 94 12/05/23 09:27 98.1 F 59 L 20 118/65 94 O2 Del Method O2 Flow Rate 12/05/23 10:09 Nasal Cannula 2 12/05/23 10:00 Nasal Cannula 2 12/05/23 09:55 12/05/23 09:53 Room Air 12/05/23 09:40 Room Air 12/05/23 09:40 Room Air 12/05/23 09:27 Room Air Recovery Score Activity: Moves 4 extremities Respiration: Deep Breath/Cough Circulation: +/-20% PreAnes Value Consciousness: Fully Awake Oxygen Saturation: O2 needed for >90% Discharge Sedation Level of Care: Fast Track Phase II Post Sedation Plan On clinical assessment, the patient appears to have tolerated the sedation without complications. Patient is recovering as anticipated. Patient will continue to be monitored by nursing and may be discharged when sedation discharge criteria are met per below protocol. Upon Completions of procedure up to 15 minutes continue every 5 minute vital signs and the P.A.R. score; then discharge to a Phase I or Fast Track to Phase II per the following guidelines: * Discharge Patient to appropriate Phase II area if PAR is 8 or greater or return to pre- procedure baseline. The post - procedure orders will be as directed. * If PAR score is less than 8 or not return to pre-procedure baseline then patient will follow Phase I monitoring till PAR is reached for Phase II. The Phase I may be done in procedure room or may call to secure a Phase I area. * If naloxone or flumazenil are used for reversal, hold in Phase I for continued monitoring from when last reversal dose was given for a minimum of 60 minutes or longer pending the nurse and/or physician discretion of patient condition before discharge to Phase II. Please call the Sedation Physician to re-evaluate and complete post-note for discharge to Phase II area. Do NOT discharge from procedure sedation or Phase 1 until post- sedation evaluation note is complete by procedure /sedation MD Sedation Discharge Instructions to be given to the patient at discharge to home.
[2023-12-05] MEDS: OPTIRAY 350 ONE (11:38)
[2023-12-05] MEDS: fentaNYL citrate PF 100 MCG/2 ML VIAL ONE (11:38)
[2023-12-05] MEDS: MIDAZOLAM HCL 1 MG/ML 2ML VIAL ONE (11:38)
--- NOTE | 2023-12-05 11:39 | Cardiac Catheterization ---
[facility] Data: Beater Room Supervisor Cardiac Status Clinical evaluation leading to the procedure CAD Presenation: STEMI Anginal Classification: CCS IV Diagnostic Physicians Name: Joseph Julio MD Closure Device Recommendations: PCI without planned CABG Cardiac Cath Procedure Full Procedure Date December 05, 2023 Pre-Procedure Diagnosis Pre-Procedure Diagnosis: STEMI AUC Score AUC Score: 9 Post-Procedure Diagnosis Post-Procedure Diagnosis: Severe CAD Procedure(s) Performed Procedure(s) Performed: Coronary Angiography, Left Heart Cath and Drug Eluting Stent Press Manager Joseph Julio MD Graphite Pan Drier Tender(s) Jewel Estimated Blood Loss Estimated Blood Loss: 20 Medication(s) Medication(s): Clopidogrel, Fentanyl, Heparin, Lidocaine 1%, Nicardipine, Nitroglycerin and Versed Summary of Findings Indication: STEMI/Heart Alert Access: 6 Fr right radial artery Catheters: [place], JR4 guide Findings: LM -calcified, short almost separate ostium, 30% ostial LAD -medium caliber, calcified, 30% ostial, mid segment luminal regularities, distal vessel small and tapers to apex. High D1 medium caliber with 30% proximal disease. D2 small to medium caliber with 20 to 30% proximal disease. Circumflex -small to medium caliber, 30% ostial, proximal to mid luminal ir regularities. Small OM1, OM 2 without disease. RCA -dominant, large caliber, heavily calcified, 40-50% proximal stenosis. 100% mid acute occlusion. LVEDP -13 -- PCI -- Antithrombotic therapy: Heparin, clopidogrel Procedure: RCA cannulated with JR4 guide Steam Generating Powerplant Mechanic 50 wire passed across lesion into distal vessel Mid RCA lesion predilated with 2.5 compliant balloon With the aid of telescope support catheter mid LAD stented with 2.75 x 33 mm Xience drug-eluting stent Stent post-dilated with 3.5 noncompliant balloon IC vasodilators administered for spasm Post procedure PATTI 3 flow, stent well expanded with minimal residual stenosis and no apparent cardiac complications. Arterial Closure: TR band Summary: 1. Inferior STEMI/acute 100% mid RCA occlusion 2. Mild to moderate non-culprit coronary artery disease -30% ostial left main 30% proximal LAD 30% ostial circumflex 3. Normal intracardiac filling pressure 4. Successful PCI of mid RCA with single drug-eluting stent (2.75 x 33 mm Xience; postdilated with 3.5 NC). Recommendations: Admit to ICU for continued monitoring Loaded with clopidogrel 600 mg in Beater Room Supervisor Continue dual-antiplatelet therapy for at least 1 year. Trend troponins until peak, Check Echo Resume low-dose ARB, uptitrate as BP allows. Start beta-jagdeep if LV function reduced High-dose statin Consult cardiac Rehab Hemodynamics Rest Ao:: 90/47 (77) Final Ao: 113/47/42 LV: 106/13 Recommendations Recommendations: PCI without planned CABG Specimens Specimens: None Radiation Exposure (mGy) 1946 Contrast (mls) 125 Anesthesia Moderate [id number] Procedural Complication(s) None Disposition ICU I attest to the content of the Intraoperative Record and any orders documented therein. Any exceptions are noted below. [facility] Card Cath Procedure Codes Cardiac Catheterization Procedure 1: Cardiovascular Cath Procedures: 74659 Coronaries and LHC (+/-LV) Moderate Sedation Procedure 1: Sedation/Anesthesia: 75294 Mod Sedation by the same physician;Init15 Min Child Age 5 & Up Procedure 2: Sedation/Anesthesia: 88423 Mod Sedation by the same physician; Ea [id number] Minutes Stenting Procedure 1: Cardiovascular Stent Procedures: 89811 Perc transluminal revascularization of acute sub/total occl, aMI PG Care Time/CCT Total # of Minutes Spent Total Time Spent with Patient: Total time spent is greater than 50% in coordination of care (as documented) at patient's floor/unit and/or counseling patient:
[2023-12-05] MEDS: ASPIRIN 81 MG CHEW ONE ×2 (11:40→15:28)
[2023-12-05] MEDS: CLOPIDOGREL BISULFATE 300 MG TAB ONE ×2 (11:40→15:28)
[2023-12-05] MEDS: ICU Protocol for HYPERglycemia SCH ×2 (12:39→13:08)
[2023-12-05] MEDS: SODIUM CHLORIDE 0.9% 1,000 ML IV SCH (12:39)
--- NOTE | 2023-12-05 12:42 | Critical Care Consultation ---
Date of Consultation December 05, 2023 Assessment & Plan (1) Acute MA: Reason Critically Ill: 83-year-old male with acute ST elevation MA PLAN: Neuro: History of Parkinson's disease -Continue home meds Slurred speech with possible weakness -Findings indicative of right cerebellar compatible with age- indeterminate infarct likely chronic seen on CT head -Obtain MRI to rule out acute ischemia (suspect mild hypoperfusion of prior possible infarct leading to symptomatology during ST elevation MA) -Obtain imaging of vasculature and neck and thorax tomorrow given recent contrast load from PCI CV: ST elevation MA -Dual antiplatelet therapy: On at baseline -Optimized to high intensity statin ID: No indication for anti-infectives at this time GI/Nutrition: Passed bedside swallow able to start diet Heme: DVT prophylaxis: SCDs, patient ambulatory Endocrine: ICU hyperglycemia protocol -Prior A1c is elevated greater than 7 Vascular access: Peripheral IV Code Status: Full code Disposition: ICU with likely downgrade tomorrow (2) Type 2 diabetes mellitus with microalbuminuria: (3) Stenosis of left internal carotid artery: (4) Thoracic ascending aortic aneurysm: (5) Hyperlipidemia: (6) Parkinson disease: History of Present Illness Reason for Consultation: Acute ST elevation MA Attending Physician: Steven Lee MD History of Present Illness Patient is an 83-year-old male with past medical history of hypertension hyperlipidemia carotid artery stenosis type 2 diabetes and right-handed teresita- Parkinson's disease who presented to the ED with initial chief complaint of slurred speech and weakness. reportedly noticed the speech upon waking. On the emergency department the patient was found to have an acute ST elevation MA, his CT scans for CVA evaluation were discontinued a CTA of the neck was not obtained and he was taken emergently to the Customer Service Dispatcher. On the Customer Service Dispatcher he received a drug-eluting stent to the mid RCA for 100% occlusion. Post procedure the patient was evaluated in the ICU. His reports that his speech and strength are all at baseline. She said he was having right-sided weakness she describes it as a general weakness there was no flaccidity nor anything approaching a hemiballismus, that weakness is also resolved. Patient denies chest pain, he was also chest pain-free during the ST elevation MA. And feels reportedly back to normal. Allergies Allergy/AdvReac Type Severity Reaction Status Date / Time No Known Drug Allergies Allergy Unknown Verified 12/02/23 07:44 Home Medications Medication Instructions Recorded Confirmed Type ascorbic acid (vitamin C) 500 mg 500 mg PO BID 04/12/19 12/02/23 History tablet (Vitamin C) multivitamin 1 tab PO QAM 04/12/19 12/02/23 History clopidogrel 75 mg tablet (Plavix) 75 mg PO QAM 02/12/22 12/02/23 History rasagiline 1 mg tablet (Azilect) 1 mg PO QAM 90 days #90 tabs 12/20/22 12/02/23 Rx aspirin 81 mg capsule 81 mg PO DAILY #30 caps 03/29/23 12/02/23 Rx rosuvastatin 10 mg tablet 10 mg PO DAILY #90 tabs 05/22/23 12/02/23 Rx carbidopa 25 mg-levodopa 100 mg 2 tab PO QID 90 days #720 tabs 06/23/23 12/02/23 Rx tablet (Sinemet) amlodipine 10 mg tablet See Rx Instructions .Route 09/16/23 12/02/23 Rx .COMPLEX #90 tabs losartan 100 mg tablet (Cozaar) 100 mg PO QAM #90 tabs 09/16/23 12/02/23 Rx Patient History Medical History Nephrolithiasis Bilateral lower extremity edema Kidney stones RT. Thoracic ascending aortic aneurysm monitoring currently (found incidentally) Carotid artery stenosis S/P L CEA [address] Schaeffer 12/11/18 -- "Plan at this time is to have the patient return to our office in 1 year for reevaluation. At this point his carotid disease appears to be fairly stable with 50% stenosis of the right internal carotid artery, a patent left carotid endarterectomy without evidence of restenosis." Osteoarthritis Skin cancer Tremor of both hands Parkinson disease Hypertension Hyperlipidemia Surgical History History of esophagogastroduodenoscopy (EGD) History of cystoscopy with stent RT. H/O bilateral hip replacements History of bilateral knee replacement History of surgery on arm LEFT ARM "INFECTION CLEANED OUT" History of colonoscopy (03/31/12) Tubular Adenoma History of tooth extraction History of tonsillectomy and adenoidectomy History of cataract surgery RT/LEFT History of carotid endarterectomy Laury VELASQUEZ 09/15/16 [facility] Family History Father Hypertension Diabetes Stroke Mother Stroke Other No family history of adverse response to anesthesia No family history of bleeding disorder Denies family history of Ovarian cancer Prostate cancer Dementia Myocardial infarction Breast cancer Lung cancer Colorectal cancer Asthma Social History Smoking Status: Never smoker Tobacco Type: Cigarettes Second Hand Exposure: No; Do You Dip or Chew Tobacco: No; Hx Alcohol Use: Yes Alcohol type: beer Alcohol Intake Frequency: Monthly or Less Hx Substance Use: No Preferred Language: Irish Communication Ability: Effective Visual Impairment: Limited Hearing Ability: Use of Hearing Aid [place] Required: No Beliefs That Will Affect Care: None marital status: Current Living Situation: Spouse current occupational status: retired How many Children do You have: 3 Feels Safe at Home: Yes Childhood Exposure to Second-Hand Smoke: Yes Diet: regular caffeine: Yes Dental Care, Regularly: Yes Physical Activity Frequency: Daily Seatbelt Use: always Sunscreen Use: Yes Assistive Devices: Denture - Upper and Denture - Lower Physical Exam Physical Exam: General: Alert. nontoxic. Skin: Warm, dry, Head: Atraumatic Ears, nose, mouth and throat: airway patent Cardiovascular: Normal peripheral perfusion Respiratory: no respiratory distress Gastrointestinal: Non distended Musculoskeletal: No deformity Neurologic: Hoop Flaring Machine Operator strength is equal bilaterally, patient has a pill-rolling tremor of the left upper extremity Results & Data Results & Data Vital Signs (Past 12 Hours) Vital Signs Temp Pulse Pulse Resp BP BP Pulse Ox 12/05/23 11:25 12/05/23 10:09 12/05/23 10:00 63 20 93 12/05/23 09:55 60 12/05/23 09:53 59 L 22 133/70 94 12/05/23 09:40 58 L 20 114/59 L 94 12/05/23 09:40 94 12/05/23 09:27 36.7 C 59 L 20 118/65 94 Pulse Ox O2 Del Method O2 Del Method O2 Flow Rate 12/05/23 11:25 90 Room Air 12/05/23 10:09 Nasal Cannula 2 12/05/23 10:00 Nasal Cannula 2 12/05/23 09:55 12/05/23 09:53 Room Air 12/05/23 09:40 Room Air 12/05/23 09:40 Room Air 12/05/23 09:27 Room Air Critical Care Results & Data Vital Signs (Past 12 Hours) Vital Signs Temp Pulse Pulse Resp BP BP Pulse Ox 12/05/23 12:31 91/68 L 12/05/23 12:31 69 24 84 L 12/05/23 12:30 68 19 89 L 12/05/23 12:16 74 22 95 12/05/23 12:16 152/95 H 12/05/23 12:15 70 27 H 84 L 12/05/23 12:01 62 31 H 94 12/05/23 12:01 146/64 H 12/05/23 12:00 60 20 85 L 12/05/23 11:50 12/05/23 11:46 53 L 16 96 12/05/23 11:46 176/71 H 12/05/23 11:45 56 L 19 94 12/05/23 11:42 60 19 94 12/05/23 11:42 148/70 H 12/05/23 11:34 12/05/23 11:34 12/05/23 11:34 36.6 C 66 20 127/63 90 12/05/23 11:30 60 16 92 12/05/23 11:25 12/05/23 11:16 129/63 12/05/23 11:16 66 22 88 L 12/05/23 11:15 69 18 12/05/23 10:09 12/05/23 10:00 63 20 93 12/05/23 09:55 60 12/05/23 09:53 59 L 22 133/70 94 12/05/23 09:52 64 17 92 12/05/23 09:52 133/70 12/05/23 09:51 64 13 94 12/05/23 09:40 58 L 20 114/59 L 94 12/05/23 09:40 94 12/05/23 09:39 59 L 16 88 L 12/05/23 09:27 36.7 C 59 L 20 118/65 94 Pulse Ox O2 Del Method O2 Del Method O2 Flow Rate O2 Flow Rate 12/05/23 12:31 12/05/23 12:31 12/05/23 12:30 12/05/23 12:16 12/05/23 12:16 12/05/23 12:15 12/05/23 12:01 12/05/23 12:01 12/05/23 12:00 12/05/23 11:50 Room Air 88 12/05/23 11:46 12/05/23 11:46 12/05/23 11:45 12/05/23 11:42 12/05/23 11:42 12/05/23 11:34 95 Nasal Cannula 3 12/05/23 11:34 Room Air 12/05/23 11:34 Room Air 12/05/23 11:30 12/05/23 11:25 90 Room Air 12/05/23 11:16 12/05/23 11:16 12/05/23 11:15 12/05/23 10:09 Nasal Cannula 2 12/05/23 10:00 Nasal Cannula 2 12/05/23 09:55 12/05/23 09:53 Room Air 12/05/23 09:52 12/05/23 09:52 12/05/23 09:51 12/05/23 09:40 Room Air 12/05/23 09:40 Room Air 12/05/23 09:39 12/05/23 09:27 Room Air Lab & Micro Results (Past 24 Hours) RBC 4.44 M/uL (4.70-6.10) L 12/05/23 WBC 9.76 K/ul (4.8-10.8) 12/05/23 Hgb 14.5 g/dl (14.0-18.0) 12/05/23 Hct 43.6 % (42.0-52.0) 12/05/23 MCV 98.2 fL (80.0-100.0) 12/05/23 MCH 32.7 pg (25.0-34.0) 12/05/23 MCHC 33.3 g/dL (32.0-36.0) 12/05/23 RDW Standard Deviation 46.2 fL (36.4-46.3) 12/05/23 RDW Coefficient of Variation 12.9 % (11.5-14.5) 12/05/23 Plt Count 225 K/uL (130-400) 12/05/23 MPV 10.0 fL (9.4-12.4) 12/05/23 Neutrophils (%) (Auto) 58.3 % 12/05/23 Lymphocytes (%) (Auto) 32.0 % 12/05/23 Monocytes # (Auto) 0.74 K/uL (0.11-0.59) H 12/05/23 Eosinophils # (Auto) 0.12 K/uL (0.00-0.50) 12/05/23 Immature Granulocyte % (Auto) 0.3 % 12/05/23 Neutrophils # (Auto) 5.69 K/uL (1.40-6.50) 12/05/23 Lymphocytes # (Auto) 3.12 K/uL (1.20-3.40) 12/05/23 Monocytes # (Auto) 0.74 K/uL (0.11-0.59) H 12/05/23 Eosinophils # (Auto) 0.12 K/uL (0.00-0.50) 12/05/23 Basophils # (Auto) 0.06 K/uL (0.00-0.20) 12/05/23 Immature Granulocyte # (Auto) 0.03 K/uL (0.01-0.20) 4 Na 139 mmol/L (136-145) 12/05/23 K 4.0 mmol/L (3.5-5.1) 12/05/23 Cl 104 mmol/L (98-107) 12/05/23 CO2 27 mmol/L (21-32) 12/05/23 Anion Gap 8 (3-11) 12/05/23 BUN 18 mg/dl (6-23) 12/05/23 Creatinine 0.95 mg/dl (0.6-1.4) 12/05/23 Estimated GFR ( Amer) 84.3 ml/min 12/05/23 Estimated GFR (Non-Af Amer) 72.7 ml/min 12/05/23 BUN/Creatinine Ratio 18.9 (10-20) 12/05/23 Glu 190 mg/dl (70-99(Fasting)) H 12/05/23 Ca 9.7 mg/dl (8.6-10.3) 12/05/23 Total Bilirubin 0.7 mg/dl (0.2-1.0) 12/05/23 AST 18 U/L (13-39) 12/05/23 ALT 4 U/L (7-52) L 12/05/23 Alkaline Phosphatase 79 U/L (34-104) 12/05/23 TP 7.7 gm/dl (6.0-8.3) 12/05/23 Albumin 4.5 gm/dl (3.4-5.0) 12/05/23 Globulin 3.2 gm/dl (2.5-4.0) 12/05/23 Albumin/Globulin Ratio 1.4 (0.9-2) 12/05/23 Mg 1.8 mg/dl (1.7-2.4) 12/05/23 09:41 Calcium Level 9.7 mg/dl (8.6-10.3) 12/05/23 09:41 Prothromb Time International Ratio 1.0 (0.9-1.1) 12/05/23 09:4 1 Diagnostic Findings (Past 24 Hours) Head CT 12/05/23 09:40 CT head/brain wo con CLINICAL HISTORY: neuro deficit, acute stroke suspected Technique: Contiguous axial CT images of the head were acquired from the base of the skull to the vertex without intravenous contrast administration. Images were viewed in brain, subdural and bone windows. Automated dose lowering techniques and/or adjustment according to patient size were utilized for this exam. Comparison: None available at the time of this dictation. Findings: Areas of decreased attenuation are present in the periventricular and moreno bcortical white matter bilaterally consistent with small vessel ischemic disease. Generalized cerebral atrophy with commensurate enlargement of the ventricles, sulci, and cisterns is also present. There is no acute intracranial hemorrhage or evidence of acute territorial infarction. No shift of the midline structures, mass effect, or extra-axial abnormalities are shown. Atherosclerotic calcifications are present in the intracranial segments of the internal carotid arteries. Focal hypodensities in the right cerebellum. Imaged portions of the paranasal sinuses and mastoid air cells are clear. The orbits appear normal. There are no acute fractures of the calvaria or scalp swelling. Impression: No acute hemorrhage. Focal hypodensity in the right cerebellum is compatible with an age-indeterminate infarct, likely chronic. ACT 112: Negative or not required by law. Electronically signed by: Moustapha Cameron M.D. 12/05/2023 10:12 AM RT Ventilator Mngmt (Last Documented) Ventilator Ordered Settings Respiratory Rate 24 12/05/23 12:31 Ventilator - PT Measurements Respiratory Rate 24 Coding Level of Care Code 57950 IN/OBS CONSULT LVL 5,80M Diagnoses Acute ST elevation myocardial infarction (STEMI) involving right coronary artery I21.11 Myocardial infarction type: ST elevation myocardial infarction Involved coronary artery: right coronary artery Type 2 diabetes mellitus with microalbuminuria E11.29; R80.9 Stenosis of left internal carotid artery I65.22 Thoracic ascending aortic aneurysm I71.2 Pure hypercholesterolemia E78.00 Hyperlipidemia type: pure hypercholesterolemia Parkinson disease G20 (1) Acute MA Myocardial infarction type: ST elevation myocardial infarction Involved coronary artery: right coronary artery Qualified Code(s): I21.11 - ST elevation (STEMI) myocardial infarction involving right coronary artery (5) Hyperlipidemia Hyperlipidemia type: pure hypercholesterolemia Qualified Code(s): E78.00 - Pure hypercholesterolemia, unspecified
[2023-12-05] MEDS: CARBIDOPA/LEVODOPA 25/100MG TAB PO STA (13:08)
[2023-12-05] MEDS ORDERED: PHARMACY GLYCEMIC MGMT CONSULT PRN (15:02)
[2023-12-05] MEDS ORDERED: GLUCOSE 40% GEL 15 GM TUBE PO PRN (15:05)
[2023-12-05] MEDS ORDERED: DEXTROSE 50% 50 ML SYRINGE IV PRN (15:05)
[2023-12-05] MEDS ORDERED: GLUCAGON FOR INJ 1 MG VIAL SQ PRN (15:05)
[2023-12-05] MEDS ORDERED: CARBOHYDRATES FOR HYPOGLYCEMIA PO PRN (15:05)
[2023-12-05] MEDS ORDERED: GLUCOSE 10 TAB/TUBE PO PRN (15:05)
--- NOTE | 2023-12-05 15:45 | Magnetic Resonance Report ---
MR brain wo con HISTORY: 83 years-old Male r/o CVA acute strokelike symptoms COMPARISON: Head CT of same day, brain MRI 08/24/2012 TECHNIQUE: Multiplanar multisequence MRI of the brain was obtained without IV contrast. FINDINGS: There is a 3 x 4 cm focus of restricted diffusion within the periventricular left parietal lobe demon strating mildly increased T2/FLAIR signal. No acute intracranial hemorrhage, midline shift, abnormal intra-axial collection, hydrocephalus or intra-axial. Involutional changes with moderate T2/FLAIR hyp erintense foci throughout the white matter. Probable slow venous flow left transverse and sigmoid sin uses. 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 Major arterial flow voids appear patent. The skull, orbits and soft tissues are unremarkable. Prior b ilateral lens repair. Trace mastoid effusions. Minimal mucosal thickening of the paranasal sinuses. P rior bilateral lens repair. IMPRESSION: 1. Acute left parietal infarct measures 4 cm. 2. Involutional changes with chronic microvascular ischemic disease. 3. No acute intracranial hemorrhage or midline shift. ACT 112: Negative or not required by law. The above report was generated using voice recognition software. It may contain grammatical, syntax o r spelling errors. Electronically signed by: Dewayne Nieto M.D. 12/05/2023 3:42 PM
[2023-12-05] MEDS ORDERED: PHARMACIST DISCHARGE MED REC CONSULT PRN (16:16)
[2023-12-05] MEDS: INSULIN ASPART PER UNIT CHARGE SC SCH (16:40)
[2023-12-05] MEDS: CARBIDOPA/LEVODOPA 25/100MG TAB PO SCH (18:07)
--- NOTE | 2023-12-05 23:25 | XCELERA ---
[id number] \\[id number]
[2023-12-06 01:58] LABS: Basophils # (auto) 0.03 K/uL (0.00-0.20); Basophils % (auto) 0.3 %; Eosinophils # (auto) 0.05 K/uL (0.00-0.50); Eosinophils % (auto) 0.6 %; Hematocrit (blood only) 39.4 % (42.0-52.0); Hemoglobin 13.4 g/dl (14.0-18.0); Immature Granulocytes # (auto) 0.03 K/uL (0.01-0.20); Immature Granulocytes % (auto) 0.3 %; Lymphocytes # (auto) 0.86 K/uL (1.20-3.40); Lymphocytes % (auto) 9.8 %; Mean Corpuscular Hemoglobin 32.4 pg (25.0-34.0); Mean Corpuscular Volume 95.2 fL (80.0-100.0); Mean Platelet Volume 10.1 fL (9.4-12.4); Monocytes # (auto) 0.68 K/uL (0.11-0.59); Monocytes % (auto) 7.7 %; Neutrophils # (auto) 7.16 K/uL (1.40-6.50); Neutrophils % (auto) 81.3 %; Platelet Count 191 K/uL (130-400); RDW Standard Deviation 45.7 fL (36.4-46.3); Red Blood Count 4.14 M/uL (4.70-6.10); White Blood Count 8.81 K/ul (4.8-10.8)
[2023-12-06 02:08] LABS: BUN Creatinine Ratio 18.6 (10-20); Calcium 9.1 mg/dl (8.6-10.3); Chol HDL Ratio 2.2 (0-5); Creatinine Clr Calc Pharmacy 82.8 ml/min; Est GFR (African American) 91.6 ml/min; Est GFR (Non-African American) 79.1 ml/min
[2023-12-06 06:55] LABS: Estimated Average Glucose 157 mg/dl; Hemoglobin A1C 7.1 % (4.5-5.6)
[2023-12-06] MEDS: ROSUVASTATIN CALCIUM 10 MG TAB PO SCH (08:36)
[2023-12-06] MEDS: CLOPIDOGREL BISULFATE 75 MG TAB PO SCH (08:37)
[2023-12-06] MEDS: ASPIRIN 81 MG ECTAB PO SCH (08:37)
--- NOTE | 2023-12-06 08:40 | Critical Care Progress Note ---
Date of Service December 06, 2023 Assessment & Plan (1) Acute MT: Plan: Reason Critically Ill: 83-year-old male with acute ST elevation MT PLAN: Neuro: History of Parkinson's disease -Continue home meds Acute right-sided CVA -Neurology consulted -PT OT evaluation Slurred speech with possible weakness -Acute 4 cm left parietal infarct -CTA of neck today CV: ST elevation MT -Dual antiplatelet therapy: On at baseline -Optimized to high intensity statin Known peripheral arterial disease -CTA of the chest included with neck ID: No indication for anti-infectives at this time GI/Nutrition: Tolerating diet Heme: DVT prophylaxis: SCDs, patient ambulatory Endocrine: ICU hyperglycemia protocol -Prior A1c is elevated greater than 7 Vascular access: Peripheral IV Code Status: Full code Disposition: Stable for downgrade out of ICU (2) Type 2 diabetes mellitus with microalbuminuria: (3) Stenosis of left internal carotid artery: (4) Thoracic ascending aortic aneurysm: (5) Hyperlipidemia: (6) Parkinson disease: Admission and Anticipated Discharge Date Admission Date: December 05, 2023 Subjective Patient denies chest pain shortness of breath, no dizziness, reports no complaints. Discussed patient appears to have had acute stroke as well as ST elevation MT. Physical Exam Physical Exam: General: Alert. nontoxic. Skin: Warm, dry, Head: Atraumatic Ears, nose, mouth and throat: airway patent Cardiovascular: Normal peripheral perfusion Respiratory: no respiratory distress Gastrointestinal: Non distended Musculoskeletal: No deformity Results & Data Results & Data Vital Signs (Past 12 Hours) Vital Signs Temp Pulse Resp BP Pulse Ox O2 Del Method O2 Flow Rate 12/06/23 08:11 Nasal Cannula 4 12/06/23 08:00 73 21 95 Nasal Cannula 4 12/06/23 07:01 83 22 91 12/06/23 07:01 157/68 H 12/06/23 07:00 90 21 91 12/06/23 03:50 62 22 92 12/06/23 03:40 72 17 92 12/06/23 03:30 70 17 94 12/06/23 03:20 59 L 20 95 12/06/23 03:10 71 13 93 12/06/23 03:00 36.6 C 12/06/23 03:00 63 22 95 12/06/23 03:00 138/64 12/06/23 02:50 72 21 94 12/06/23 02:40 76 18 93 04/09/24 02:30 60 15 95 12/06/23 02:20 63 23 95 12/06/23 02:10 82 21 94 12/06/23 02:01 60 21 95 12/06/23 02:01 139/82 12/06/23 02:00 66 22 95 12/06/23 01:50 65 22 95 12/06/23 01:40 66 22 94 12/06/23 01:30 59 L 20 96 12/06/23 01:20 66 22 93 12/06/23 01:10 66 21 95 12/06/23 01:00 146/118 H 12/06/23 01:00 85 22 96 12/06/23 00:50 63 20 96 12/06/23 00:40 64 21 94 12/06/23 00:30 63 22 94 12/06/23 00:20 61 21 94 12/06/23 00:10 68 19 93 12/06/23 00:00 67 24 94 12/06/23 00:00 143/68 H 12/05/23 23:50 66 23 94 12/05/23 23:40 58 L 19 97 12/05/23 23:30 58 L 19 96 12/05/23 23:20 70 16 96 12/05/23 23:10 59 L 20 98 12/05/23 23:00 140/56 L 12/05/23 23:00 64 21 96 12/05/23 22:50 64 20 97 12/05/23 22:40 66 25 H 86 L 12/05/23 22:30 72 21 92 12/05/23 22:20 87 20 92 12/05/23 22:10 72 18 96 12/05/23 22:01 65 20 95 12/05/23 22:01 145/68 H 12/05/23 22:00 68 26 H 96 12/05/23 21:50 59 L 19 95 12/05/23 21:40 68 18 95 12/05/23 21:30 71 22 96 12/05/23 21:20 62 18 95 12/05/23 21:10 70 20 94 12/05/23 21:01 89 18 95 12/05/23 21:01 128/83 12/05/23 21:00 36.4 C L 04/08/24 21:00 80 17 94 12/05/23 20:50 81 19 94 12/05/23 20:40 64 18 96 Critical Care Results & Data Vital Signs (Past 12 Hours) Vital Signs Temp Pulse Resp BP Pulse Ox O2 Del Method O2 Flow Rate 12/06/23 08:11 Nasal Cannula 4 12/06/23 08:00 73 21 95 Nasal Cannula 4 12/06/23 07:01 83 22 91 12/06/23 07:01 157/68 H 12/06/23 07:00 90 21 91 12/06/23 03:50 62 22 92 12/06/23 03:40 72 17 92 12/06/23 03:30 70 17 94 12/06/23 03:20 59 L 20 95 12/06/23 03:10 71 13 93 12/06/23 03:00 36.6 C 12/06/23 03:00 63 22 95 12/06/23 03:00 138/64 12/06/23 02:50 72 21 94 12/06/23 02:40 76 18 93 12/06/23 02:30 60 15 95 12/06/23 02:20 63 23 95 12/06/23 02:10 82 21 94 12/06/23 02:01 60 21 95 12/06/23 02:01 139/82 12/06/23 02:00 66 22 95 12/06/23 01:50 65 22 95 12/06/23 01:40 66 22 94 12/06/23 01:30 59 L 20 96 12/06/23 01:20 66 22 93 12/06/23 01:10 66 21 95 12/06/23 01:00 146/118 H 12/06/23 01:00 85 22 96 12/06/23 00:50 63 20 96 12/06/23 00:40 64 21 94 12/06/23 00:30 63 22 94 12/06/23 00:20 61 21 94 12/06/23 00:10 68 19 93 12/06/23 00:00 67 24 94 12/06/23 00:00 143/68 H 12/05/23 23:50 66 23 94 12/05/23 23:40 58 L 19 97 12/05/23 23:30 58 L 19 96 12/05/23 23:20 70 16 96 04/08/24 23:10 59 L 20 98 12/05/23 23:00 140/56 L 12/05/23 23:00 64 21 96 12/05/23 22:50 64 20 97 12/05/23 22:40 66 25 H 86 L 12/05/23 22:30 72 21 92 12/05/23 22:20 87 20 92 12/05/23 22:10 72 18 96 12/05/23 22:01 65 20 95 12/05/23 22:01 145/68 H 12/05/23 22:00 68 26 H 96 12/05/23 21:50 59 L 19 95 12/05/23 21:40 68 18 95 12/05/23 21:30 71 22 96 12/05/23 21:20 62 18 95 12/05/23 21:10 70 20 94 12/05/23 21:01 89 18 95 12/05/23 21:01 128/83 12/05/23 21:00 36.4 C L 12/05/23 21:00 80 17 94 12/05/23 20:50 81 19 94 12/05/23 20:40 64 18 96 Lab & Micro Results (Past 24 Hours) RBC 4.14 M/uL (4.70-6.10) L 12/06/23 WBC 8.81 K/ul (4.8-10.8) 12/06/23 Hgb 13.4 g/dl (14.0-18.0) L 12/06/23 Hct 39.4 % (42.0-52.0) L 12/06/23 MCV 95.2 fL (80.0-100.0) 12/06/23 MCH 32.4 pg (25.0-34.0) 12/06/23 MCHC 34.0 g/dL (32.0-36.0) 12/06/23 RDW Standard Deviation 45.7 fL (36.4-46.3) 12/06/23 RDW Coefficient of Variation 13.0 % (11.5-14.5) 12/06/23 Plt Count 191 K/uL (130-400) 12/06/23 MPV 10.1 fL (9.4-12.4) 12/06/23 Neutrophils (%) (Auto) 81.3 % 12/06/23 Lymphocytes (%) (Auto) 9.8 % 12/06/23 Monocytes # (Auto) 0.68 K/uL (0.11-0.59) H 12/06/23 Eosinophils # (Auto) 0.05 K/uL (0.00-0.50) 12/06/23 Immature Granulocyte % (Auto) 0.3 % 12/06/23 Neutrophils # (Auto) 7.16 K/uL (1.40-6.50) H 12/06/23 Lymphocytes # (Auto) 0.86 K/uL (1.20-3.40) L 12/06/23 Monocytes # (Auto) 0.68 K/uL (0.11-0.59) H 12/06/23 Eosinophils # (Auto) 0.05 K/uL (0.00-0.50) 12/06/23 Basophils # (Auto) 0.03 K/uL (0.00-0.20) 12/06/23 Immature Granulocyte # (Auto) 0.03 K/uL (0.01-0.20) 4 Na 137 mmol/L (136-145) 12/06/23 K 4.0 mmol/L (3.5-5.1) 12/06/23 Cl 103 mmol/L (98-107) 12/06/23 CO2 28 mmol/L (21-32) 12/06/23 Anion Gap 6 (3-11) 12/06/23 BUN 16 mg/dl (6-23) 12/06/23 Creatinine 0.86 mg/dl (0.6-1.4) 12/06/23 Estimated GFR ( Amer) 91.6 ml/min 12/06/23 Estimated GFR (Non-Af Amer) 79.1 ml/min 12/06/23 BUN/Creatinine Ratio 18.6 (10-20) 12/06/23 Glu 140 mg/dl (70-99(Fasting)) H 12/06/23 Ca 9.1 mg/dl (8.6-10.3) 12/06/23 Calcium Level 9.1 mg/dl (8.6-10.3) 12/06/23 01:35 Diagnostic Findings (Past 24 Hours) Head CT 12/05/23 09:40 CT head/brain wo con CLINICAL HISTORY: neuro deficit, acute stroke suspected Technique: Contiguous axial CT images of the head were acquired from the base of the skull to the vertex without intravenous contrast administration. Images were viewed in brain, subdural and bone windows. Automated dose lowering techniques and/or adjustment according to patient size were utilized for this exam. Comparison: None available at the time of this dictation. Findings: Areas of decreased attenuation are present in the periventricular and subcortical white matter bilaterally consistent with small vessel ischemic disease. Generalized cerebral atrophy with commensurate enlargement of the ventricles, sulci, and cisterns is also present. There is no acute intracranial hemorrhage or evidence of acute territorial infarction. No shift of the midline structures, mass effect, or extra-axial abnormalities are shown. Atheroscle rotic calcifications are present in the intracranial segments of the internal carotid arteries. Focal hypodensities in the right cerebellum. Imaged portions of the paranasal sinuses and mastoid air cells are clear. The orbits appear normal. There are no acute fractures of the calvaria or scalp swelling. Impression: No acute hemorrhage. Focal hypodensity in the right cerebellum is compatible with an age-indeterminate infarct, likely chronic. ACT 112: Negative or not required by law. Electronically signed by: Moustapha Cameron M.D. 12/05/2023 10:12 AM Brain MRI 12/05/23 12:40 MR brain wo con HISTORY: 83 years-old Male r/o CVA acute strokelike symptoms COMPARISON: Head CT of same day, brain MRI 08/24/2012 TECHNIQUE: Multiplanar multisequence MRI of the brain was obtained without IV contrast. FINDINGS: There is a 3 x 4 cm focus of restricted diffusion within the periventricular left parietal lobe demonstrating mildly increased T2/FLAIR signal. No acute intracranial hemorrhage, midline shift, abnormal intra-axial collection, hydrocephalus or intra-axial. Involutional changes with moderate T2/FLAIR hyperintense foci throughout the white matter. Probable slow venous flow left transverse and sigmoid sinuses. 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 Major arterial flow voids appear patent. The skull, orbits and soft tissues are unremarkable. Prior bilateral lens repair. Trace mastoid effusions. Minimal mucosal thickening of the paranasal sinuses. Prior bilateral lens repair. IMPRESSION: 1. Acute left parietal infarct measures 4 cm. 2. Involutional changes with chronic microvascular ischemic disease. 3. No acute intracranial hemorrhage or midline shift. ACT 112: Negative or not required by law. The above report was generated using voice recognition software. It may contain grammatical, syntax or spelling errors. Electronically signed by: Dewayne Nieto M.D. 12/05/2023 3:[address] Scan Report Patient: DARIUS GUADALUPE Admit Date: 12/05/23 MR#: [id number] Address1: [address] [place] [address] Acct ID:[id number] Address2: Date: 1940 [facility] Zip: [place] [address] Age: 83 Location: Sex: M [facility]Bed: [facility] Att Phy: Rashmi Pruitt MD Diagnosis: SLURRED SPEECH/WEAKNESS/ Sejal Phy: Elisa Dobson MD Service Date: 12/06/23 Fam Phy: Interpreting Phy: Dewayne NietoAdmit Phy: Steven Lee MD Ordering Phy: Maurice Jay DAbelO. cc: ~ CT angio head wo/w CLINICAL HISTORY: 83 years-old Male with cva. Acute stroke like symptoms COMPARISON STUDY: Brain MRI 12/05/2023 TECHNIQUE: Unenhanced axial CT scan of the brain is performed. Subsequently, following the IV administration of 118 cc of Optiray, CT angiogram of the brain was performed from the skull base to the vertex. Images are reviewed in the axial, sagittal, and coronal planes. 3-D MIPS images are created and assessed. IV contrast was administered without complication. All measurements were obtained according to NASCET criteria. A dose lowering technique was utilized adhering to the principles of ALARA. FINDINGS: CT BRAIN: There is no acute intracranial hemorrhage, midline shift, hydrocephalus, intracranial mass, or abnormal extra-axial collections. No abnormal intra-axial or extra-axial enhancement. Involutional changes with chronic microvascular ischemic disease. Acute left parietal infarct redemonstrated with progressive cytotoxic edema overall measuring approximately 4 to 5 cm. Chronic cerebellar infarcts. Mastoid air cells and middle ear cavities are clear. No calvarial fracture. Paranasal sinuses are clear. CT ANGIOGRAM OF THE BRAIN: The imaged bilateral internal carotid arteries are patent. The bilateral anterior and middle cerebral arteries are also patent. Areas of high-grade stenosis in the V4 segment right vertebral artery secondary to calcified plaque. Diminutive basilar artery with origin of the posterior cerebral arteries. The left vertebral artery appears to terminate into the right height. There is no aneurysm, high-grade stenosis, or proximal branch occlusion identified. Dural sinuses appear patent. IMPRESSION: 1. Acute left parietal lobe infarct redemonstrated with mildly progressed cytotoxic edema. 2. No acute intracranial hemorrhage or midline shift. 3. 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 4. Otherwise unremarkable CTA of the head. ACT 112: Negative or not required by law. The above report was generated using voice recognition software. It may contain grammatical, syntax or spelling errors. Electronically signed by: Dewayne Nieto M.D. 12/06/2023 9:54 AM Dictated: 12/06/23946 Transcribed: 12/06/23946 I & O Totals 24 Hours 12/05/23 12/06/23 12/07/23 06:59 06:59 06:59 Intake Total 1516.667 / 1516.667 Output Total 1300 / 1300 100 / 100 Balance 216.667 / 216.667 -100 / -100 Cumulative 12/05/23 09:25 thru 12/06/23 07:51 Intake Total 1516.667 Output Total 1400 Balance 116.667 RT Ventilator Mngmt (Last Documented) Ventilator Ordered Settings Respiratory Rate 21 12/06/23 08:00 Ventilator - PT Measurements Respiratory Rate 21 Coding Level of Care Code 70594 SUB INP/OBS CARE 3/50MIN Diagnoses Acute ST elevation myocardial infarction (STEMI) involving right coronary artery I21.11 Involved coronary artery: right coronary artery Myocardial infarction type: ST elevation myocardial infarction Type 2 diabetes mellitus with microalbuminuria E11.29; R80.9 Stenosis of left internal carotid artery I65.22 Thoracic ascending aortic aneurysm I71.2 Pure hypercholesterolemia E78.00 Hyperlipidemia type: pure hypercholesterolemia Parkinson disease G20 (1) Acute MT Involved coronary artery: right coronary artery Myocardial infarction type: ST elevation myocardial infarction Qualified Code(s): I21.11 - ST elevation (STEMI) myocardial infarction involving right coronary artery (5) Hyperlipidemia Hyperlipidemia type: pure hypercholesterolemia Qualified Code(s): E78.00 - Pure hypercholesterolemia, unspecified
[2023-12-06] MEDS: OPTIRAY 320 125ml IV ONE (09:16)
--- NOTE | 2023-12-06 09:50 | Pharmacy Report ---
- Date of Service December 06, 2023 - Pharmacy CVA/TIA Medication Review Medications to Prevent Stroke handout has been added to the patients discharge packet. Antiplatelet(s) * Aspirin, clopidogrel Cholesterol * High intensity statin: rosuvastatin 20 mg daily DVT Prophylaxis * SCD knee Therapeutic Anticoagulation * No history of Afib/Aflutter noted Type 2 Diabetes * Patient has T2DM, but per Dr. Jay, a diabetes medication with proven CVD benefit will be deferred to their outpatient provider due to familiarity with risks/benefits of such therapies. "Medications to prevent stroke" handout has already been added to the patient's discharge packet, which instructs the patient to follow up with their outpatient provider to evaluate which diabetes medication with proven CVD benefit is best for them
--- NOTE | 2023-12-06 09:50 | Pharmacy Report ---
Pharmacy Glycemic Sign Off Nt - Date of Service December 06, 2023 - Assessment & Plan ASSESSMENT: * Pharmacy consulted for glycemic management * Patient's BSG's have been well controlled on looser than weight-based moderate stress Novolog * No further inpatient glycemic needs * Discussed with Dr. Jay - pharmacy will sign off PLAN FOR INPATIENT GLYCEMIC CONTROL: No changes needed to current regimen. * Continue NovoLog per scale ACHS/Q6hrs while NPO * Goal range = 110 140 mg/dl * CF = 25 mg/dl/unit * CR = 1 unit for ever 8 g CHO consumed * Pharmacy is signing off of glycemic consult and will no longer be making adjustments to inpatient regimen. Please feel free to re-consult if needed. Thank you.
--- NOTE | 2023-12-06 09:53 | Neurology Consultation ---
Date of Consultation December 06, 2023 Assessment & Plan (1) CVA (cerebral vascular accident): (2) Parkinson disease: Plan 83-year-old male with a history of tremor predominant right teresita-Parkinson's disease, [facility] with an acute left parietal infarct involving the precentral and postcentral sulcus, extending into the subinsular cortex, presenting with dysarthria, right hemiparesis, mild speech disfluency, in the context of acute myocardial infarction, now status post cardiac catheterization with deployment of drug-eluting stent. Interestingly, his right upper extremity parkinsonian tremor is greatly diminished in the context of his recent left hemispheric stroke. He does have a mild intermittent left upper extremity resting tremor. Patient has been taking daily aspirin, clopidogrel has been added. I agree with dual antiplatelet therapy after cardiac catheterization, stent placement, per cardiology. Patient's dosage of Crestor has been increased to 20 mg/day. I agree with this medication adjustment. I do note that his LDL was 61 (goal LDL less than 70). Continue medical management of blood pressure. Systolic blood pressure goal 140 to 160 mmHg acutely. Continue with carbidopa levodopa as prescribed. Follow-up with results of CT angiography of the head and neck. Consultations with PT/OT/speech therapy. May follow-up with myself or an CITLALI in neurology clinic in 2 to 3 weeks after discharge. History of Present Illness Reason for Consultation: stroke Requesting Physician: Ludwig Attending Physician: Rashmi Pruitt MD History of Present Illness The patient is an 83-year-old male who is known to me, I last saw him in clinic June 23, 2023 regarding a history of tremor predominant right teresita- Parkinson's disease and had refilled his prescription for carbidopa levodopa, he was to continue with Azilect as well. He also has a known history of left carotid endarterectomy in August 2016 and peripheral vascular disease, follows with Dr. Schaeffer. He had presented to the emergency department yesterday with a chief complaint of slurred speech and right-sided weakness. He was diaphoretic and his presentation was further complicated by ST elevation [place]. He was taken to the [facility] yesterday and underwent coronary angiography, left heart cath, placement of a drug-eluting stent with Dr. Julio. He was subsequently admitted to the ICU in stable condition. He continues to exhibit moderate dysarthria and a right hemiparesis. I note that his right upper extremity parkinsonian resting tremor is not evident although he does have an intermittent left upper extremity resting tremor at this time. A brain MRI completed yesterday did reveal an acute left parietal infarct measuring 4 cm. The infarct involves both the precentral and postcentral gyrus, and extends into the posterior aspect of the subinsular cortex. There is also a chronic right periventricular infarct as well as chronic microvascular ischemic disease. I independently reviewed these images. CT angiography of the head and neck has been completed, results pending. Per my review, there does appear to be significant atherosclerotic plaque within both common carotids, right a bit more than left. Allergies Allergy/AdvReac Type Severity Reaction Status Date / Time No Known Drug Allergies Allergy Unknown Verified 12/02/23 07:44 Home Medications Medication Instructions Recorded Confirmed Type ascorbic acid (vitamin C) 500 mg 500 mg PO BID 04/12/19 12/05/23 History tablet (Vitamin C) multivitamin 1 tab PO QAM 04/12/19 12/05/23 History rasagiline 1 mg tablet (Azilect) 1 mg PO QAM 90 days #90 tabs 12/20/22 12/05/23 Rx aspirin 81 mg capsule 81 mg PO DAILY #30 caps 03/29/23 12/05/23 Rx rosuvastatin 10 mg tablet 10 mg PO DAILY #90 tabs 05/22/23 12/05/23 Rx carbidopa 25 mg-levodopa 100 mg 2 tab PO QID 90 days #720 tabs 06/23/23 12/05/23 Rx tablet (Sinemet) amlodipine 10 mg tablet See Rx Instructions .Route 09/16/23 12/05/23 Rx .COMPLEX #90 tabs losartan 100 mg tablet (Cozaar) 100 mg PO QAM #90 tabs 09/16/23 12/05/23 Rx Patient History Medical History Nephrolithiasis Bilateral lower extremity edema Kidney stones RT. Thoracic ascending aortic aneurysm monitoring currently (found incidentally) Carotid artery stenosis S/P L CEA [address] Schaeffer 12/11/18 -- "Plan at this time is to have the patient return to our office in 1 year for reevaluation. At this point his carotid disease appears to be fairly stable with 50% stenosis of the right internal carotid artery, a patent left carotid endarterectomy without evidence of restenosis." Osteoarthritis Skin cancer Tremor of both hands Parkinson disease Hypertension Hyperlipidemia Surgical History History of esophagogastroduodenoscopy (EGD) History of cystoscopy with stent RT. H/O bilateral hip replacements History of bilateral knee replacement History of surgery on arm LEFT ARM "INFECTION CLEANED OUT" History of colonoscopy (03/31/12) Tubular Adenoma History of tooth extraction History of tonsillectomy and adenoidectomy History of cataract surgery RT/LEFT History of carotid endarterectomy L SID[facility] 09/15/16 [facility] Family History Father Hypertension Diabetes Stroke Mother Stroke Other No family history of adverse response to anesthesia No family history of bleeding disorder Denies family history of Ovarian cancer Prostate cancer Dementia Myocardial infarction Breast cancer Lung cancer Colorectal cancer Asthma Social History Smoking Status: Never smoker Tobacco Type: Cigarettes Second Hand Exposure: No; Do You Dip or Chew Tobacco: No; Hx Alcohol Use: Yes Alcohol type: beer Alcohol Intake Frequency: Monthly or Less Hx Substance Use: No Preferred Language: Occitan Communication Ability: Effective Visual Impairment: Limited Hearing Ability: Use of Hearing Aid Cardiology Clinical Nurse Specialist Required: No Beliefs That Will Affect Care: Spiritual marital status: Current Living Situation: Spouse current occupational status: retired How many Children do You have: 3 Feels Safe at Home: Yes Childhood Exposure to Second-Hand Smoke: Yes Diet: regular caffeine: Yes Dental Care, Regularly: Yes Physical Activity Frequency: Daily Seatbelt Use: always Sunscreen Use: Yes Assistive Devices: Denture - Upper and Denture - Lower Review of Systems Constitutional: no fever and no chills Eyes: no blind spots and no diplopia Ear, Nose, Mouth, Throat: no hearing loss Respiratory: no cough and no dyspnea Cardiovascular: + lightheadedness; no chest pain and no palpitations Gastrointestinal: no nausea and no vomiting Genitourinary: no dysuria Musculoskeletal: no neck pain and no myalgia Integumentary: no rash and no lesions Neurologic: as per Subjective / HPI Psychiatric: no depression and no anxiety Hematologic / Lymphatic: no easy bleeding and no easy bruising Exam (Neuro) Constitutional: well developed and well nourished; no acute distress Eyes: normal visual huntley by confrontation, PERRL and EOM intact bilaterally; no nystagmus Neurologic: Oriented to:: Person, Place and Time Memory: Short Term Intact and Remote Intact Attention: Span Intact and Concentration Intact Speech Fluency: Dysarthria and Dysfluency Speech Aphasia: Aphasia Fund of Knowledge: Current Events, Past History and Vocabulary Cranial Nerves: Normal II, III, IV, , V, VIII, IX, X, XI and XII; Abnorm VII (Right lower facial droop noted) Motor Strength: negative Hemiparesis (Face and arm greater than leg, right upper extremity strength 4/5) Rigidity: Rigidity Laterality: Left Muscle Bulk/Involuntary Movements: Pill Rolling Tremor Laterality: Left Sensation: Light Touch Intact, Pain/Temperature Intact and Proprioception Intact Coordination: Finger-Nose Abnormal Laterality: Right Deep Tendon Reflexes: Rt Triceps: 2+, Lt Triceps: 2+, Rt Biceps: 3+, Lt Biceps: 2+, Rt Brachioradialis: 2+, Lt Brachioradialis: 2+, Rt Patellar: 3+ and Lt Patellar: 2+ Special Tests: Babinski Present (right) Details: Gait cannot be tested. Patient is mildly bradykinetic, rigid on the left, pill- rolling resting tremor observed for the left hand. Superimposed right hemiparesis observed as well, face and arm greater than leg. Patient able to identify fingers, distinguishes left from right, has some difficulty with simple calculations. Made some word substitutions with casual speech. Results & Data Vital Signs (Past 12 Hours) Vital Signs Temp Pulse Resp BP Pulse Ox O2 Del Method O2 Flow Rate 12/06/23 08:11 Nasal Cannula 4 12/06/23 08:00 73 21 95 Nasal Cannula 4 12/06/23 07:01 83 22 91 12/06/23 07:01 157/68 H 12/06/23 07:00 90 21 91 12/06/23 03:50 62 22 92 12/06/23 03:40 72 17 92 12/06/23 03:30 70 17 94 12/06/23 03:20 59 L 20 95 12/06/23 03:10 71 13 93 12/06/23 03:00 36.6 C 12/06/23 03:00 63 22 95 12/06/23 03:00 138/64 12/06/23 02:50 72 21 94 12/06/23 02:40 76 18 93 12/06/23 02:30 60 15 95 12/06/23 02:20 63 23 95 12/06/23 02:10 82 21 94 12/06/23 02:01 60 21 95 12/06/23 02:01 139/82 12/06/23 02:00 66 22 95 12/06/23 01:50 65 22 95 12/06/23 01:40 66 22 94 12/06/23 01:30 59 L 20 96 12/06/23 01:20 66 22 93 12/06/23 01:10 66 21 95 12/06/23 01:00 146/118 H 12/06/23 01:00 85 22 96 12/06/23 00:50 63 20 96 12/06/23 00:40 64 21 94 12/06/23 00:30 63 22 94 12/06/23 00:20 61 21 94 12/06/23 00:10 68 19 93 12/06/23 00:00 67 24 94 12/06/23 00:00 143/68 H 12/05/23 23:50 66 23 94 12/05/23 23:40 58 L 19 97 12/05/23 23:30 58 L 19 96 12/05/23 23:20 70 16 96 12/05/23 23:10 59 L 20 98 12/05/23 23:00 140/56 L 12/05/23 23:00 64 21 96 12/05/23 22:50 64 20 97 12/05/23 22:40 66 25 H 86 L 12/05/23 22:30 72 21 92 12/05/23 22:20 87 20 92 12/05/23 22:10 72 18 96 12/05/23 22:01 65 20 95 12/05/23 22:01 145/68 H 12/05/23 22:00 68 26 H 96 12/05/23 21:50 59 L 19 95 Laboratory Results WBC 8.81, hemoglobin 13.4, hematocrit 39.4, platelet count 191, sodium 137, potassium 4.0, BUN 16, creatinine 0.86, glucose 140, hemoglobin A1c 7.1, calcium 9.1, magnesium 1.8, AST 18, ALT 4, troponins elevated, trending down, triglyce rides 80, cholesterol 141, LDL 61, HDL 64 Diagnostic Findings Brain MRI is as described in the HPI. An echocardiogram reveals a normal left ventricular size and systolic function, EF 55 to 60%, no definite regional wall motion abnormalities, moderate concentric LVH, no significant valvular abnormalities, left atrial size normal, no right to left shunt noted with administration of agitated saline. Coding Level of Care Code 31248 INT INP/OBS CARE 3/75MIN Diagnoses CVA (cerebral vascular accident) I63.9 Parkinson disease G20 Time Spent (min) 80 Comment Total time includes patient contact, chart review, counseling, note preparation
--- NOTE | 2023-12-06 09:56 | CT Scan Report ---
CT angio head wo/w CLINICAL HISTORY: 83 years-old Male with cva. Acute stroke like symptoms COMPARISON STUDY: Brain MRI 12/05/2023 TECHNIQUE: Unenhanced axial CT scan of the brain is performed. Subsequently, following the IV adminis tration of 118 cc of Optiray, CT angiogram of the brain was performed from the skull base to the vert ex. Images are reviewed in the axial, sagittal, and coronal planes. 3-D MIPS images are created and a ssessed. IV contrast was administered without complication. All measurements were obtained according to NASCET criteria. A dose lowering technique was utilized adhering to the principles of ALARA. FINDINGS: CT BRAIN: There is no acute intracranial hemorrhage, midline shift, hydrocephalus, intracranial mass, or abnorm al extra-axial collections. No abnormal intra-axial or extra-axial enhancement. Involutional changes with chronic microvascular ischemic disease. Acute left parietal infarct redemonstrated with progress marc cytotoxic edema overall measuring approximately 4 to 5 cm. Chronic cerebellar infarcts. Mastoid a ir cells and middle ear cavities are clear. No calvarial fracture. Paranasal sinuses are clear. CT ANGIOGRAM OF THE BRAIN: The imaged bilateral internal carotid arteries are patent. The bilateral anterior and middle cerebral arteries are also patent. Areas of high-grade stenosis in the V4 segment right vertebral artery seco ndary to calcified plaque. Diminutive basilar artery with origin of the posterior cerebral june mazin. The left vertebral artery appears to terminate into the right height. There is no aneurysm, hig h-grade stenosis, or proximal branch occlusion identified. Dural sinuses appear patent. IMPRESSION: 1. Acute left parietal lobe infarct redemonstrated with mildly progressed cytotoxic edema. 2. No acute intracranial hemorrhage or midline shift. 3. 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 4. Otherwise unremarkable CTA of the head. ACT 112: Negative or not required by law. The above report was generated using voice recognition software. It may contain grammatical, syntax o r spelling errors. Electronically signed by: Dewayne Nieto M.D. 12/06/2023 9:54 AM
--- NOTE | 2023-12-06 10:29 | CT Scan Report ---
NECK CTA HISTORY: Known vascular disease. Recent left parietal infarct. TECHNIQUE: Multiaxial CT images of the neck were performed following the intravenous administration o f contrast to evaluate the major cervical vessels. 3D/MIP images were also obtained. Sagittal and cor onal reformats were reviewed. All measurements were calculated based on NASCET criteria. A dose low ering technique was utilized adhering to the principles of ALARA. COMPARISON STUDY: CTA neck 08/16/2016. FINDINGS: The aortic arch and proximal great vessels are widely patent. Mild to moderate stenosis at the takeoff of the bilateral vertebral arteries due to the calcified plaque. There is also a focal a ruby of severe stenosis within the intradural segment of the distal right vertebral artery on image 15 1 due to the focal calcified plaque. The remaining cervical vertebral arteries are patent without britney dence for dissection. [id number] calcified plaque within the mid to distal left common carotid artery without hemodynamically significant stenosis. Interval left carotid endarterectomy. Therefore, no significant stenosis within the left internal carotid artery. There is severe calcified plaque ag ain noted within the right carotid bifurcation. This results in high-grade stenosis at the takeoff th e right external carotid artery, unchanged. There is up to 50% stenosis within the distal right commo n carotid artery. There is up to 70% focal stenosis within the proximal right internal carotid artery best seen on image 102. This is slightly progressed in the interval. The mid to distal right interna l carotid artery is patent. No evidence for a carotid dissection. Right lingual tonsil hypertrophy, u nchanged. IMPRESSION: 1. Approximately 70% focal stenosis within the proximal right internal carotid artery due to the calc ified plaque which has slightly progressed in the interval. 2. Interval left carotid endarterectomy. Therefore, no significant stenosis within the left internal carotid artery. 3. Mild to moderate focal stenosis at the takeoff of the bilateral vertebral arteries due to the calc ified plaque. 4. Focal area of severe stenosis within the distal right vertebral artery due to the calcified plaque . ACT 112: Negative or not required by law. Electronically signed by: Ludwig Angel M.D. 12/06/2023 10:28 AM
--- NOTE | 2023-12-06 10:46 | CT Scan Report ---
CT angio chest dissec wo/w con HISTORY: 83 years-old Male with known vascular disease. Acute chest pain with shortness of breath. TECHNIQUE: Multiple CTA images of the chest were obtained with and without the administration of 118 ml Optiray. Coronal and sagittal MIPS were obtained from the axial data set and were submitted for r eview. All measurements were obtained according to NASCET criteria. A dose lowering technique was ut ilized adhering to the principles of ALARA. COMPARISON: CT abdomen and pelvis 11/03/2020. FINDINGS: CTA: Moderate cardiomegaly without pericardial effusion. Extensive coronary artery calcifications. Fusifor m dilation of the ascending thoracic aorta at the level of the main pulmonary artery, 4.3 x 4.3 cm. T here is atherosclerosis of the aorta and proximal right vessels without dissection. The main pulmonar y artery measures up to 4.5 cm transversely. No pulmonary emboli are identified. The noncontrast scan demonstrates no intramural hematoma. CT CHEST: Eleven mm hypodense right-sided thyroid nodule. No pathologically enlarged lymph nodes. Trace pleural effusions with mild subsegmental dependent bibasilar opacities. Mild biapical pleural-parenchymal sc arring. There are a few subpleural blebs within the lung apices. Mild bibasilar mucous plugging. No a cute upper abdominal abnormality. Unremarkable soft tissues. No acute fracture. Healed chronic left-s ided rib fractures. IMPRESSION: 1. Cardiomegaly with fusiform dilation of the ascending thoracic aorta measuring 4.3 x 4.3 cm. No dis section. 2. Findings are suggestive of pulmonary arterial hypertension. No pulmonary emboli identified. 3. Trace pleural effusions with mild subsegmental bibasilar opacities favoring atelectasis. ACT 112: Negative or not required by law. The above report was generated using voice recognition software. It may contain grammatical, syntax o r spelling errors. Dictated: 12/06/2023 9:54 AM Transcribed: 12/06/2023 10:05 AM Thierno [id number] JOSE [email or web address] Electronically signed by: Dewayne Nieto M.D. 12/06/2023 10:45 AM
[2023-12-06] MEDS: ROSUVASTATIN CALCIUM 10 MG TAB PO ONE (11:38)
--- NOTE | 2023-12-06 15:19 | Cardiology Progress Note ---
Date of Service December 06, 2023 Assessment & Plan (1) Acute NM: Plan: Post PCI with AUBRIE to mid RCA Mild to moderate nonculprit coronary artery disease 2. Preserved LV function 3. Acute left parietal CVA 4. Parkinson's disease 5. Carotid artery diseaseleft CEA, NELIA 70% 6. Type 2 diabetes 7. Hypertension 8. Thoracic aortic aneurysm (4.3 cm on CTA 11/2023, previously 4.5) Doing well today from a cardiac standpoint Chest pain-free, troponin peaked. Electrically stable on telemetry No signs of heart failure exam No apparent access to complications No significant new neurologic deficits Due antiplatelet therapy aspirin, clopidogrel Continue current statin Resume ARB when okay from a neurologic standpoint From a cardiac standpoint okay to transition telemetry today. Appreciate ICU and hospital medicine team care Admission and Anticipated Discharge Date Admission Date: December 05, 2023 Subjective Feeling well this afternoon. Sitting in chair. Denies any chest pain. No shortness of breath. Denies any headache, new visual symptoms, dysphagia/dysarthria or focal numbness/weakness. Telemetry reviewedno events Review of Systems Review of Systems: All systems reviewed & are unremarkable except as noted in HPI & below Physical Exam Physical Exam: General: Comfortable up in chair HEENT: Sclerae anicteric Lungs: Clear to auscultation bilaterally Cardiac: Regular rate and rhythm Vascular: Right radial artery access site with no ecchymosis, hematoma. Distal pulse and sensation intact. Abdomen: Soft, nontender Extremities: Well perfused, no peripheral edema Psych: Alert oriented, flat Results & Data Vital Signs (Past 12 Hours) Vital Signs Pulse Resp BP Pulse Ox Pulse Ox O2 Del Method O2 Del Method 12/06/23 11:34 Nasal Cannula 12/06/23 11:15 93 12/06/23 08:11 Nasal Cannula 12/06/23 08:00 73 21 95 Nasal Cannula 12/06/23 07:01 83 22 91 12/06/23 07:01 157/68 H 12/06/23 07:00 90 21 91 12/06/23 03:50 62 22 92 12/06/23 03:40 72 17 92 12/06/23 03:30 70 17 94 12/06/23 03:20 59 L 20 95 12/06/23 03:10 71 13 93 O2 Flow Rate O2 Flow Rate 12/06/23 11:34 12/06/23 11:15 2 12/06/23 08:11 4 12/06/23 08:00 4 12/06/23 07:01 12/06/23 07:01 12/06/23 07:00 12/06/23 03:50 12/06/23 03:40 12/06/23 03:30 12/06/23 03:20 12/06/23 03:10 PG Care Time/CCT Total # of Minutes Spent Total Time Spent with Patient: Total time spent is greater than 50% in coordination of care (as documented) at patient's floor/unit and/or counseling patient: Coding Level of Care Code 23606 SUB INP/OBS CARE 3/50MIN Diagnoses Acute ST elevation myocardial infarction (STEMI) involving right coronary artery I21.11 Myocardial infarction type: ST elevation myocardial infarction Involved coronary artery: right coronary artery (1) Acute NM Myocardial infarction type: ST elevation myocardial infarction Involved coronary artery: right coronary artery Qualified Code(s): I21.11 - ST elevation (STEMI) myocardial infarction involving right coronary artery
--- NOTE | 2023-12-06 15:50 | Hospitalist Progress Note ---
Date of Service December 06, 2023 Assessment & Plan (1) Acute CA: Plan: Patient developed slurred speech and weakness the morning of 12/04 without chest pain EKG revealed inferior STEMI on arrival and had bradycarida, hypotension while in CT scanner for stroke alert Emergent Cardiac catheterization with Dr. Julio on 12/04 showed 100% mid RCA occlusion and had successful PCI of mid RCA with single drug[place] [id number] Echocardiogram preserved EF, no WMAs Loaded with clopidogrel 600 mg and aspirin 324 mg--> continue DAPT Increase Crestor to 20mg daily Diabetes is controlled with HgbA1C 7.1% Continue permissive HTN for now for acute CVA but soon resume ARB. Cardiology only recommend starting metoprolol if LV function low Monitor on tele for arrhythmias-none thus far Follow BMP, keep lytes replete (2) CVA (cerebral vascular accident): Plan: Slurred speech and RUE weakness on the morning of 12/04 No facial droop appreciated by patient's No hx of CVA per patient Patient takes ASA 81mg daily Head CT revealed no acute hemorrhage, but noted an age-indeterminate right cerebellar infarct; likely chronic Brain MRI noted an acute left parietal infarct measuring 4cm; patient did not receive TNKase due to concurrent STEMI and was taken emergently to [facility] due to hemodynamic instability and then outside window/contraindicated for TNKase CTA Head and neck with severe right vertebral artery stenosis and NELIA 70% stenosis not related to current stroke ECHO no thrombus No Afib/flutter on tele Neuro consult appreciated-->recommend Vascular Surgery outpt f/u for NELIA sten osis, outpt Neuro f/u, otherwise recommendations as above PT/OT recommending rehab-will ask [facility] to make referral to [facility] Continue Speech therapy (3) Hyperlipidemia: Plan: increase rosuvastatin to 20 mg daily as above, lipid panel good (4) Parkinson disease: Plan: Per neurology note: "Moderate right teresita-Parkinson's disease, tremor predominant type" Continue Sinemet, rasagiline can be brought in from home (5) Hypertension: Plan: holding home losartan, amlodipine for permissive HTN (6) Stenosis of right carotid artery: Plan: 70% f/u Vascular Surgery outpt (7) Thyroid nodule: Plan: 11mm right lobe, found incidentally on CTA neck check TSH in AM f/u as outpt (8) Thoracic ascending aortic aneurysm: Plan: 4.3 x 4.3 cm, no dissection, seen on CTA Chest BP control follow as outpt Plan Disposition: downgrade out of ICU, improving, needs rehab-likely medically stable for discharge to rehab tomorrow Full code VTE PPx: SCDs discussed care with at bedside on 12/05 Admission and Anticipated Discharge Date Admission Date: December 05, 2023 Subjective Pt feeling better. No CP,SOB,headache. No nausea, has not moved bowels yet but says did not eat much until today. Still having some slurred speech and RUE weakness but improved from previous Physical Exam Constitutional: WD/WN, vitals as above Eyes: PERRL, conjunctivae normal, anicteric sclerae Respiratory: normal respiratory effort, lungs clear to auscultation Cardiovascular: RRR, no murmur, no edema Gastrointestinal (Abdomen): normal bowel sounds, soft, nontender, no hepatosplenomegaly Neurologic: CN's II-XI intact bilaterally, + focal motor deficit (RUE 4/5 strength throughout,otherwise 5/5) and awake Speech / Cognition: + abnormal speech (dysarthria) Results & Data Results & Data Vital Signs (Past 12 Hours) Vital Signs Pulse Resp BP Pulse Ox Pulse Ox O2 Del Method O2 Del Method 12/06/23 11:34 Nasal Cannula 12/06/23 11:15 93 12/06/23 08:11 Nasal Cannula 12/06/23 08:00 73 21 95 Nasal Cannula 12/06/23 07:01 83 22 91 12/06/23 07:01 157/68 H 12/06/23 07:00 90 21 91 12/06/23 03:50 62 22 92 O2 Flow Rate O2 Flow Rate 12/06/23 11:34 12/06/23 11:15 2 12/06/23 08:11 4 12/06/23 08:00 4 12/06/23 07:01 12/06/23 07:01 12/06/23 07:00 12/06/23 03:50 Laboratory Results CBC, BMP, troponins, HgbA1C, lipids reviewed Diagnostic Findings Neck CTA 12/06/23 08:44 NECK CTA HISTORY: Known vascular disease. Recent left parietal infarct. TECHNIQUE: Multiaxial CT images of the neck were performed following the intravenous administration of contrast to evaluate the major cervical vessels. 3D/MIP images were also obtained. Sagittal and coronal reformats were reviewed. All measurements were calculated based on NASCET criteria. A dose lowering technique was utilized adhering to the principles of ALARA. COMPARISON STUDY: CTA neck 08/16/2016. FINDINGS: The aortic arch and proximal great vessels are widely patent. Mild to moderate stenosis at the takeoff of the bilateral vertebral arteries due to the calcified plaque. There is also a focal area of severe stenosis within the intradural segment of the distal right vertebral artery on image 151 due to the focal calcified plaque. The remaining cervical vertebral arteries are patent without evidence for dissection. [id number] calcified plaque within the mid to distal left common carotid artery without hemodynamically significant stenosis. Interval left carotid endarterectomy. Therefore, no significant stenosis within the left internal carotid artery. There is severe calcified plaque again noted within the right carotid bifurcation. This results in high- grade stenosis at the takeoff the right external carotid artery, unchanged. There is up to 50% stenosis within the distal right common carotid artery. There is up to 70% focal stenosis within the proximal right internal carotid artery best seen on image 102. This is slightly progressed in the interval. The mid to distal right internal carotid artery is patent. No evidence for a carotid dissection. Right lingual tonsil hypertrophy, unchanged. IMPRESSION: 1. Approximately 70% focal stenosis within the proximal right internal carotid artery due to the calcified plaque which has slightly progressed in the interval. 2. Interval left carotid endarterectomy. Therefore, no significant stenosis within the left internal carotid artery. 3. Mild to moderate focal stenosis at the takeoff of the bilateral vertebral arteries due to the calcified plaque. 4. Focal area of severe stenosis within the distal right vertebral artery due to the calcified plaque. ACT 112: Negative or not required by law. Electronically signed by: Ludwig Angel M.D. 12/06/2023 10:28 AM Chest CTA 12/06/23 08:45 CT angio chest dissec wo/w con HISTORY: 83 years-old Male with known vascular disease. Acute chest pain with shortness of breath. TECHNIQUE: Multiple CTA images of the chest were obtained with and without the administration of 118 ml Optiray. Coronal and sagittal MIPS were obtained from the axial data set and were submitted for review. All measurements were obtained according to NASCET criteria. A dose lowering technique was utilized adhering to the principles of ALARA. COMPARISON: CT abdomen and pelvis 11/03/2020. FINDINGS: CTA: Moderate cardiomegaly without pericardial effusion. Extensive coronary artery calcifications. Fusiform dilation of the ascending thoracic aorta at the level of the main pulmonary artery, 4.3 x 4.3 cm. There is atherosclerosis of the aorta and proximal right vessels without dissection. The main pulmonary artery measures up to 4.5 cm transversely. No pulmonary emboli are identified. The noncontrast scan demonstrates no intramural hematoma. CT CHEST: Eleven mm hypodense right-sided thyroid nodule. No pathologically enlarged lymph nodes. Trace pleural effusions with mild subsegmental dependent bibasilar opacities. Mild biapical pleural-parenchymal scarring. There are a few subpleu ral blebs within the lung apices. Mild bibasilar mucous plugging. No acute upper abdominal abnormality. Unremarkable soft tissues. No acute fracture. Healed chronic left-sided rib fractures. IMPRESSION: 1. Cardiomegaly with fusiform dilation of the ascending thoracic aorta measuring 4.3 x 4.3 cm. No dissection. 2. Findings are suggestive of pulmonary arterial hypertension. No pulmonary emboli identified. 3. Trace pleural effusions with mild subsegmental bibasilar opacities favoring atelectasis. ACT 112: Negative or not required by law. The above report was generated using voice recognition software. It may contain grammatical, syntax or spelling errors. Dictated: 12/06/2023 9:54 AM Transcribed: 12/06/2023 10:05 AM Thierno [id number] [email or web address] Electronically signed by: Dewayne Nieto M.D. 12/06/2023 10:45 AM Head CTA 12/06/23 09:14 CT angio head wo/w CLINICAL HISTORY: 83 years-old Male with cva. Acute stroke like symptoms COMPARISON STUDY: Brain MRI 12/05/2023 TECHNIQUE: Unenhanced axial CT scan of the brain is performed. Subsequently, following the IV administration of 118 cc of Optiray, CT angiogram of the brain was performed from the skull base to the vertex. Images are reviewed in the axial, sagittal, and coronal planes. 3-D MIPS images are created and assessed. IV contrast was administered without complication. All measurements were obtained according to NASCET criteria. A dose lowering technique was utilized adhering to the principles of ALARA. FINDINGS: CT BRAIN: There is no acute intracranial hemorrhage, midline shift, hydrocephalus, intracranial mass, or abnormal extra-axial collections. No abnormal intra-axial or extra-axial enhancement. Involutional changes with chronic microvascular ischemic disease. Acute left parietal infarct redemonstrated with progressive cytotoxic edema overall measuring approximately 4 to 5 cm. Chronic cerebellar infarcts. Mastoid air cells and middle ear cavities are clear. No calvarial fracture. Paranasal sinuses are clear. CT ANGIOGRAM OF THE BRAIN: The imaged bilateral internal carotid arteries are patent. The bilateral anterior and middle cerebral arteries are also patent. Areas of high-grade stenosis in the V4 segment right vertebral artery secondary to calcified plaque. Diminutive basilar artery with origin of the posterior cerebral arteries. The left vertebral artery appears to terminate into the right height. There is no aneurysm, high-grade stenosis, or proximal branch occlusion identified. Dural sinuses appear patent. IMPRESSION: 1. Acute left parietal lobe infarct redemonstrated with mildly progressed cytotoxic edema. 2. No acute intracranial hemorrhage or midline shift. 3. 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 4. Otherwise unremarkable CTA of the head. ACT 112: Negative or not required by law. The above report was generated using voice recognition software. It may contain grammatical, syntax or spelling errors. Electronically signed by: Dewayne Nieto M.D. 12/06/2023 9:54 AM PG Care Time/CCT Total # of Minutes Spent Total Time Spent with Patient: Total time spent is greater than 50% in coordination of care (as documented) at patient's floor/unit and/or counseling patient: Coding Level of Care Code 70367 SUB INP/OBS CARE 3/50MIN Diagnoses Acute ST elevation myocardial infarction (STEMI) involving right coronary artery I21.11 Myocardial infarction type: ST elevation myocardial infarction Involved coronary artery: right coronary artery CVA (cerebral vascular accident) I63.9 Pure hypercholesterolemia E78.00 Hyperlipidemia type: pure hypercholesterolemia Parkinson disease G20 Essential hypertension I10 Hypertension type: essential hypertension Stenosis of right carotid artery I65.21 Thyroid nodule E04.1 Thoracic ascending aortic aneurysm I71.2 (1) Acute CA Myocardial infarction type: ST elevation myocardial infarction Involved coronary artery: right coronary artery Qualified Code(s): I21.11 - ST elevation (STEMI) myocardial infarction involving right coronary artery (3) Hyperlipidemia Hyperlipidemia type: pure hypercholesterolemia Qualified Code(s): E78.00 - Pure hypercholesterolemia, unspecified (5) Hypertension Hypertension type: essential hypertension Qualified Code(s): I10 - Essential (primary) hypertension
[2023-12-07 05:26] LABS: Basophils # (auto) 0.04 K/uL (0.00-0.20); Basophils % (auto) 0.6 %; Eosinophils # (auto) 0.11 K/uL (0.00-0.50); Eosinophils % (auto) 1.5 %; Hematocrit (blood only) 40.9 % (42.0-52.0); Hemoglobin 13.6 g/dl (14.0-18.0); Immature Granulocytes # (auto) 0.03 K/uL (0.01-0.20); Immature Granulocytes % (auto) 0.4 %; Lymphocytes # (auto) 1.33 K/uL (1.20-3.40); Lymphocytes % (auto) 18.6 %; Mean Corpuscular Hemoglobin 32.6 pg (25.0-34.0); Mean Corpuscular Hgb Conc 33.3 g/dL (32.0-36.0); Mean Corpuscular Volume 98.1 fL (80.0-100.0); Mean Platelet Volume 10.2 fL (9.4-12.4); Monocytes # (auto) 0.83 K/uL (0.11-0.59); Monocytes % (auto) 11.6 %; Neutrophils # (auto) 4.81 K/uL (1.40-6.50); Neutrophils % (auto) 67.3 %; Platelet Count 177 K/uL (130-400); RDW Coefficient of Variation 13.1 % (11.5-14.5); Red Blood Count 4.17 M/uL (4.70-6.10); White Blood Count 7.15 K/ul (4.8-10.8)
[2023-12-07 05:32] LABS: Calcium 9.2 mg/dl (8.6-10.3); Creatinine Clr Calc Pharmacy 81.8 ml/min; Est GFR (African American) 92.1 ml/min; Est GFR (Non-African American) 79.5 ml/min; Magnesium 1.8 mg/dl (1.7-2.4); Potassium 4.2 mmol/L (3.5-5.1)
[2023-12-07 05:45] LABS: Thyroid Stimulating Hormone 2.124 uIu/ml (0.300-4.500)
--- NOTE | 2023-12-07 06:00 | Electrocardiogram Report ---
Test Reason : Blood Pressure : / mmHG Vent. Rate : 061 BPM Atrial Rate : 061 BPM P-R Int : 212 ms QRS Dur : 094 ms QT Int : 396 ms P-R-T Axes : 030 056 092 degrees QTc Int : 398 ms Sinus rhythm with 1st degree A-V block ST elevation consider inferolateral injury or acute infarct ACUTE OK / STEMI Consider right ventricular involvement in acute inferior infarct Abnormal ECG When compared with ECG of 03-NOV-2020 09:35, Inferolateral STEMI is now present Confirmed by Joss Ang ([id number]) on 12/07/2023 6:00:00 AM Referred By: REFERRED SELF Confirmed By:Joss Ang
--- NOTE | 2023-12-07 06:05 | Electrocardiogram Report ---
Test Reason : Blood Pressure : / mmHG Vent. Rate : 065 BPM Atrial Rate : 065 BPM P-R Int : 214 ms QRS Dur : 094 ms QT Int : 422 ms P-R-T Axes : 046 002 088 degrees QTc Int : 438 ms Sinus rhythm with 1st degree A-V block Nonspecific ST and T wave abnormality Abnormal ECG When compared with ECG of 05-DEC-2023 09:37, ST less elevated in Inferior leads Non-specific change in ST segment in Lateral leads Confirmed by Joss Ang ([id number]) on 12/07/2023 6:04:54 AM Referred By: REFERRED SELF Confirmed By:Joss Ang
[2023-12-07] MEDS: ROSUVASTATIN CALCIUM 20 MG TAB PO SCH (08:01)
[2023-12-07 09:48] VITALS: O2SAT 92
[2023-12-07 11:35] VITALS: RESP 22; TEMP 98.1
--- NOTE | 2023-12-07 11:58 | Cardiology Progress Note ---
Date of Service December 07, 2023 Assessment & Plan (1) Acute [place]: Plan: Post PCI with AUBRIE to mid RCA Mild to moderate nonculprit coronary artery disease 2. Preserved LV function 3. Acute left parietal CVA 4. Parkinson's disease 5. Carotid artery diseaseleft CEA, NELIA 70% 6. Type 2 diabetes 7. Hypertension 8. Thoracic aortic aneurysm (4.3 cm on CTA 11/2023, previously 4.5) Stable from a cardiac standpoint. Remains chest pain-free. Electrically stable on telemetry. No access site complications. From a cardiac standpoint okay with discharge to rehab today. Dual antiplatelet therapy with aspirin, clopidogrel Continue current statin Can restart low-dose losartan Follow-up with me in 2 weeks Admission and Anticipated Discharge Date Admission Date: December 05, 2023 Subjective Feeling well today. No chest pain or shortness of breath. Telemetry reviewedno events Review of Systems Review of Systems: All systems reviewed & are unremarkable except as noted in HPI & below Physical Exam Physical Exam: General: Comfortable up in chair HEENT: Sclerae anicteric Lungs: Clear to auscultation bilaterally Cardiac: Regular rate and rhythm Vascular: Right radial artery access site with no ecchymosis, hematoma. Distal pulse and sensation intact. Abdomen: Soft, nontender Extremities: Well perfused, no peripheral edema Psych: Alert oriented, flat Results & Data Vital Signs (Past 12 Hours) Vital Signs Temp Pulse Pulse Resp BP BP Pulse Ox 12/07/23 11:22 98.1 F 141/72 H 92 12/07/23 11:22 84 22 12/07/23 10:00 79 22 12/07/23 09:47 97.9 F 74 17 142/64 H 92 12/07/23 08:07 142/64 H 12/07/23 08:07 86 20 90 12/07/23 08:00 97.9 F 74 17 92 12/07/23 08:00 81 20 93 12/07/23 02:55 97.3 F L 68 23 131/65 95 O2 Del Method O2 Flow Rate 12/07/23 11:22 Room Air 12/07/23 11:22 12/07/23 10:00 12/07/23 09:47 Room Air 12/07/23 08:07 12/07/23 08:07 Room Air 12/07/23 08:00 Room Air 12/07/23 08:00 12/07/23 02:55 Nasal Cannula 2 PG Care Time/CCT Total # of Minutes Spent Total Time Spent with Patient: Total time spent is greater than 50% in coordination of care (as documented) at patient's floor/unit and/or counseling patient: Coding Level of Care Code 00120 SUB INP/OBS CARE 2/35MIN Diagnoses Acute ST elevation myocardial infarction (STEMI) involving right coronary artery I21.11 Myocardial infarction type: ST elevation myocardial infarction Involved coronary artery: right coronary artery (1) Acute [place] Myocardial infarction type: ST elevation myocardial infarction Involved coronary artery: right coronary artery Qualified Code(s): I21.11 - ST elevation (STEMI) myocardial infarction involving right coronary artery
--- NOTE | 2023-12-07 14:12 | Discharge Summary ---
Discharge Summary Date of Service December 07, 2023 Notes For Next Care Provider Needs Vascular Surgery f/u for NELIA stenosis Needs Neurology f/u for CVA Needs Cardiology f/u for STEMI Needs 30 day event monitor for occult afib/flutter due to CVA Feeling depressed post-HI and post-CVA while in hospital, tearful-monitor for worsening depression Admission HPI Per Admitting Provider Glen is an 83-year-old male with PMH of HTN, HLD, carotid artery stenosis, T2DM, and right-sided teresita-Parkinson's disease. He presented for slurred speech and weakness the morning of 12/04. While patient woke around 6 AM, patient's (Kaitlin) reportedly noticed slurred speech around 08:30am and drove him directly to the ED. No facial droop appreciated by the . No recent falls, trauma, or injuries to the head or neck. Patient does not use supplemental oxygen at home. No prior history of HI, CVA, or DVT/PE. Upon ED arrival, EKG revealed an inferior STEMI, and heart alert was called. Patient's SpO2 was 93% on 2L NC at this time; normotensive; vitals otherwise stable. Patient seen at the bedside later following his catheterization, and is not currently having any chest pain. Patient is an unreliable historian, and is not sure what brought him in this morning. However, chest wall is NTP, and he denies pain or pressure in his left arm or jaw. He endorses slurred speech, but he has no new complaints at this time. Reports that he is doing well. He took his regular morning medications today prior to coming in, and says there have been no recent change in medications. ROS: Patient endorses slurred speech, and resting tremor. Patient denies fever, chills, night sweats, body aches, dizziness/lightheadedness, headache, facial droop, changes in vision, chest pain at rest/with exertion, left shoulder or jaw pain, chest palpitations, cough, SOB, pleuritic CP, abdominal pain, N/V/D, numbness or tingling in the arms, or numbness/tingling/swelling/pain in the legs. Principal Dx & Hospital Course #1 = Principal Diagnosis (1) Acute HI: Patient developed slurred speech and weakness the morning of 12/04 without chest pain EKG revealed inferior STEMI on arrival and had bradycarida, hypotension while in CT scanner for stroke alert Emergent Cardiac catheterization with Dr. Julio on 12/04 showed 100% mid RCA occlusion and had successful PCI of mid RCA with single drug[place] [id number] Echocardiogram preserved EF, no WMAs Loaded with clopidogrel 600 mg and aspirin 324 mg--> continue DAPT with ASA 81 and Plavix 75mg daily Increased Crestor to 20mg daily Diabetes is controlled with HgbA1C 7.1%, not on meds had permissive HTN for acute CVA but can resume losartan and amlodipine on discharge. Cardiology only recommend starting metoprolol if LV function low and EF is normal and no ectopy so defer metoprolol based on recent studies showing not beneficial in this situation Monitored on tele for arrhythmias-none thus far F/u Cardiology in 2 weeks (2) CVA (cerebral vascular accident): Slurred speech and RUE weakness on the morning of 12/04 No hx of CVA per patient Patient takes ASA 81mg daily Head CT revealed no acute hemorrhage, but noted an age-indeterminate right cerebellar infarct; likely chronic Brain MRI noted an acute left parietal infarct measuring 4cm; patient did not receive TNKase due to concurrent STEMI and was taken emergently to senior label specialist due to hemodynamic instability and then outside window/contraindicated for TNKase CTA Head and neck with severe right vertebral artery stenosis and NELIA 70% stenosis not related to current stroke ECHO no thrombus No Afib/flutter on tele Neuro consult appreciated-->recommend Vascular Surgery outpt f/u for NELIA stenosis, outpt Neuro f/u, otherwise recommendations as above PT/OT recommending rehab-[facility] Continue Speech therapy Has some residual RUE weakness and dysarthria at time of discharge Watch for worsening signs of depression post-stroke as he is frequently tearful here F/u Neuro as outpt Should have 30 day cardiac event monitor to look for Afib/flutter (3) Hyperlipidemia: increase rosuvastatin to 20 mg daily as above, lipid panel good (4) Parkinson disease: Per neurology note: "Moderate right teresita-Parkinson's disease, tremor predominant type" Continue Sinemet, rasagiline (5) Hypertension: permissive HTN-held home losartan, amlodipine but can now resume on discharge (6) Stenosis of right carotid artery: 70%, asymptomatic f/u Vascular Surgery outpt (7) Thyroid nodule: 11mm right lobe, found incidentally on CTA neck TSH here normal f/u as outpt (8) Thoracic ascending aortic aneurysm: 4.3 x 4.3 cm, no dissection, seen on CTA Chest BP control follow as outpt Plan Disposition: dc to [facility] for rehab Full code VTE PPx: SCDs discussed care with at bedside on 12/06 Discharge Exam Constitutional WD/WN, vitals as above Respiratory normal respiratory effort, lungs clear to auscultation Cardiovascular RRR, no murmur, no edema Gastrointestinal (Abdomen) normal bowel sounds, soft, nontender, no hepatosplenomegaly Neurologic + focal motor deficit (RUE 4/5 strength throughout,otherwise 5/5) and awake Speech / Cognition: + abnormal speech (dysarthria) Updated Medication List Medication Instructions Recorded Confirmed Type ascorbic acid (vitamin C) 500 mg 500 mg PO BID 04/12/19 12/05/23 History tablet (Vitamin C) multivitamin 1 tab PO QAM 04/12/19 12/05/23 History rasagiline 1 mg tablet (Azilect) 1 mg PO QAM 90 days #90 tabs 12/20/22 12/05/23 Rx aspirin 81 mg capsule 81 mg PO DAILY #30 caps 03/29/23 12/05/23 Rx rosuvastatin 10 mg tablet 10 mg PO DAILY #90 tabs 05/22/23 12/05/23 Rx carbidopa 25 mg-levodopa 100 mg 2 tab PO QID 90 days #720 tabs 06/23/23 12/05/23 Rx tablet (Sinemet) amlodipine 10 mg tablet See Rx Instructions .Route 09/16/23 12/05/23 Rx .COMPLEX #90 tabs losartan 100 mg tablet (Cozaar) 100 mg PO QAM #90 tabs 09/16/23 12/05/23 Rx clopidogrel 75 mg tablet 75 mg PO QAM #30 tabs 12/07/23 Rx rosuvastatin 20 mg tablet (Crestor) 20 mg PO DAILY #30 tabs 12/07/23 Rx Hospital Stay Data Consultations 12/05/23 10:10 ED Decision to Admit Stat 12/05/23 11:25 Consult Energy Trader Routine 12/05/23 16:16 Consult Neurology Routine 12/06/23 16:08 Consult HEBERG puppet master Routine Procedures Performed Operation Date: 12/05/23 10:00 Actual Procedures s Cineradiography w/Routine Exam - Joseph Julio MD s Drug Eluting Stent SGl Vessel - Joseph Julio MD p Aspiration/PCI w/AUBRIE for Stemi - Joseph Julio MD Diagnostic Imagining Performed 12/05/23 09:40 CT head/brain wo con Stat 12/05/23 09:51 CL Cath Imgs for PACS use only Stat 12/05/23 12:40 MRI Brain [MR brain wo con] Stat 12/06/23 08:44 CTA neck with con [CT angio neck with con] Routine 12/06/23 08:45 CTA chest dissec wo/w con [CT angio chest dissec wo/w con] Routine 12/06/23 09:14 CT angio head wo/w Routine ECHO Pending Results Patient Have Any Pending Studies at Discharge: No Discharge Instructions Given to Patient (Per Discharging Provider) You were admitted with a heart attack and a stroke, simultaneously. You had a stent placed in your heart to open up a blockage. You were started on Plavix and aspirin to keep this stent from clogging up. Your Crestor dose was increased to 20mg daily. You will need short term rehab for your right sided weakness and speech therapy for your difficulty with slurred speech. Home Care: * Take your medications exactly as directed. Don't skip doses. * Remember that recovery after a heart attack takes time. Plan to rest for at lease 4-8 weeks while you recover. Then return to normal activity when your doctor says it's okay. * Ask your doctor about joining a heart rehabilitation program. * Tell your doctor if you are feeling depressed. Feelings of sadness are common after a heart attack, but it is important that you speak to someone if you are feeling overwhelmed by these feelings. * If you are having chest pain, call 911 for an ambulance. Do NOT drive yourself to the hospital. * Ask your family members to learn CPR. * Learn to take your own blood pressure and pulse. Keep a record of your results. Ask your doctor when you should seek emergency medical attention. He or she will tell you which blood pressure reading is dangerous. Lifestyle Changes: * Maintain a healthy weight. Get help to lose any extra pounds. * Cut back on salt. * Limit canned, dried, packaged, and fast foods. * Don't add salt to your food. * Season foods with herbs instead of salt when you cook. * Break the smoking habit. Enroll in a stop-smoking program to improve your chances of success. * Limit fatty foods. * Ask your doctor about having your lipid levels checked regularly. * Build up your activity according to your doctor's recommendation. * Ask your doctor when it's okay to resume sexual activity. * Tell your doctor about any erectile dysfunction (ED) medication you are taking. Some ED medications are not safe if you take certain heart medications. * Try to manage stress. Follow Up: It is important for you to keep your follow up appointments with your medical provider. Risk Factors for Stroke: You can reduce your chances of stroke by working with your medical provider to adopt a healthy lifestyle. Some specific ways to lower your chance of stroke are: * If you are a smoker, now is the time to stop smoking cigarettes * If you are diabetic, improve the control of your blood sugars * Avoid excessive amounts of alcohol * Control high blood pressure * Lose weight if you are overweight * Be sure to lead an active lifestyle * Eat a healthy diet low in salt, cholesterol and fat You should know about other risk factors for stroke that you are unable to control. These include: * Age 55 years or older * Male gender * Certain racial groups: , or / * Family History of Stroke, Mini stroke or Heart Attack * Sickle Cell Disease Follow Up: It is important for you to keep your follow up appointments with your medical provider. Who to Call and When: Medical Emergencies: Call 911 immediately if you experience any of the followin g warning signs and symptoms of Stroke: * Sudden numbness or weakness of the face, arm or leg, especially on one side of the body * Sudden confusion, trouble speaking or understanding * Sudden trouble seeing in one or both eyes * Sudden trouble walking, dizziness, loss of balance or coordination * Sudden severe headache with no cause Do not delay calling 911 if you experience any warning signs or symptoms of a stroke. Delay in seeking medical attention may affect what treatments can be given to you. . ACTIVITY RECOMMENDATIONS: Excess manipulation of the wrist should be avoided for the next 24-48 hours. * No lifting over 2 pounds (approximately a 1/2 gallon of milk) with the utilized arm for 24 hours. * No strenuous activity such as bowling or tennis for 3 days. * Keep the site of the procedure covered with a bandage for 24 hours. *You may shower the day after the procedure. Do not take a tub bath or submerge the puncture site in water for the next 3 days. *Do not operate any motorized equipment for 3 days. SPECIAL CARE INSTRUCTIONS: The site may be slightly bruised and sore following your procedure. Should any of the following occur, contact the Dr. who performed your procedure. 1. Redness/inflammation, swelling, chills, or fever, or colored drainage at procedure site within 3-7 days after your procedure. 2. Coldness, discoloration, ongoing numbness, severe pain, or swelling. Expect mild tingling of hand and tenderness at the puncture site for up to three days. If this persists beyond three days, or other symptoms develop, notify the Dr. who performed your procedure. BLEEDING: If the procedure site on your wrist begins to bleed, do not panic 1. Place 1 or 2 fingers firmly just slightly above the insertion site to stop the bleeding. You may be able to feel your pulse as you hold pressure. 2. Lift your finger after 5 minutes to see if the bleeding has stopped. 3. Once the bleeding has stopped, gently wipe the wrist area clean with a bandage. * If the bleeding from your wrist does not stop after 10 minutes, or if there is a large amount of bleeding or spurting, call 911 ([address] drive yourself to the hospital). SKIN IRRITATION: * You may experience some redness and/or swelling in the area where radiation was administered. If any skin irritation occurs, please contact your family physician. FOLLOW UP VISIT: Keep any scheduled doctor appointments. Total Time Total Time Spent Total Time Spent (In Minutes): 45 min Total Time Includes: Examination of the Patient, Discharge Planning, Medication Reconciliation and Communication With Other Providers (Cardiology) Coding Level of Care Code 79745 INP/OBS DISCH >[address] elevation myocardial infarction (STEMI) involving right coronary artery I21.11 Myocardial infarction type: ST elevation myocardial infarction Involved coronary artery: right coronary artery CVA (cerebral vascular accident) I63.9 Pure hypercholesterolemia E78.00 Hyperlipidemia type: pure hypercholesterolemia Parkinson disease G20 Essential hypertension I10 Hypertension type: essential hypertension Stenosis of right carotid artery I65.21 Thyroid nodule E04.1 Thoracic ascending aortic aneurysm I71.2
[2023-12-07 15:04] VITALS: BP 142/64; PULSE 74
== END 2023-12-07 15:45 | DRG 981 ==
LOC: ED 09:25 → CC 10:00 → 1E 10:13 → SUATTDRO 10:13
DX: I69.331 Monoplegia of upper limb following cerebral infarction affecting right dominant side; R00.1 Bradycardia, unspecified; I65.21 Occlusion and stenosis of right carotid artery; I71.21 Aneurysm of the ascending aorta, without rupture; Z79.02 Long term (current) use of antithrombotics/antiplatelets; I10 Essential (primary) hypertension; E11.9 Type 2 diabetes mellitus without complications; I21.11 ST elevation (STEMI) myocardial infarction involving right coronary artery; I63.9 Cerebral infarction, unspecified; I25.10 Atherosclerotic heart disease of native coronary artery without angina pectoris; G81.91 Hemiplegia, unspecified affecting right dominant side; I69.328 Other speech and language deficits following cerebral infarction; Z79.82 Long term (current) use of aspirin; G20.A1 Parkinson's disease without dyskinesia, without mention of fluctuations; E04.1 Nontoxic single thyroid nodule; E78.5 Hyperlipidemia, unspecified